=== PATIENT | female | born 1955 | race Caucasian/White ===

== ENCOUNTER 2024-03-24 17:09 | Emergency (ER) | payer MEDICARE, SELFPAY ==
--- NOTE | ~2024-03-24 | XR_ITS ---
XR shoulder LT min 2V DATE: 03/24/2024 17:55 INDICATION: Fall onto left shoulder. Pain, bruising TECHNIQUE: 2 views COMPARISON: None FINDINGS: There is a comminuted fracture the proximal left humerus including fracture of the humeral head, greater tuberosity and surgical neck, with prominent anteromedial displacement at the surgical neck fracture. No other fracture. Osteoarthritis of the left glenohumeral joint. Mild degenerative change of the acromion clavicular nahomy int. IMPRESSION: Comminuted proximal left humeral fracture, glenohumeral head, greater tuberosity, with pr ominently anteromedial displaced surgical neck fracture Reviewed, dictated and finalized at location A. SELLING PSYCHOLOGIST IMPRESSION: Comminuted proximal left humeral fracture, glenohumeral head, great er tuberosity, with prominently anteromedial displaced surgical neck fracture
[2024-03-24 17:22] VITALS: BP 131/72; PULSE 85; RESP 18; TEMP 36.6; O2SAT 96
--- NOTE | 2024-03-24 17:33 | ED.UPPEXIN ---
HPI - Extremity Injury (Upper) General Chief Complaint: Extremity Injury, Upper Stated Complaint: L shoulder pain Time Seen by Provider: 03/24/24 17:25 Source: patient Mode of arrival: ambulatory Limitations: no limitations History of Present Illness HPI narrative: This is a 68-year-old female that presents to the emergency department after a fall 2 nights ago with left shoulder pain. Reports she was up on a small stool that is about a foot off the ground. She had accidentally lost her balance and fell onto the left shoulder. She did not hit her head or lose consciousness. Reports decreased range of motion in the shoulder. Reports pain and bruising to the area. She is not on anticoagulation. Denies numbness. Related Data Allergies Allergy/AdvReac Type Severity Reaction Status Date / Time No Known Allergies Allergy Verified 03/24/24 17:39 Review of Systems Review of Systems: CONSTITUTIONAL: Denies fever CARDIOVASCULAR: Denies chest pain GASTROINTESTINAL: Denies vomiting MUSCULOSKELETAL: Reports joint pain, and myalgia. NEUROLOGIC: Denies numbness, or weakness. All systems reviewed & are unremarkable except as noted in HPI and below PMFSH Past Medical History Medical History (Updated 03/24/24 @ 18:03 by Jolene Francis PA-C) History of depression History of hypertension Social History Social History (Updated 03/24/24 @ 17:36 by Jolene Francis PA-C) Substance use: never Exam Narrative: GENERAL: Well-appearing, well-nourished, and in no acute distress. HEAD: Normocephalic, atraumatic. EYES: PERRLA and EOMI. ENT: Nares clear, no rhinorrhea or epistaxis. Mucous membranes moist. Oropharynx without tonsillar hypertrophy exudate or other lesions. Bilateral TMs pearly vo non-bulging NECK: Supple. No adenopathy or masses. CHEST: Clear to auscultation. No respiratory distress. No wheezes rales or rhonchi HEART: Regular rate and rhythm. No murmur heard. Normal peripheral pulses. EXTREMITIES: Normal range of motion, except decreased active ROM in the left should with edema and bruising present. Normal radial pulse. Normal sensation SKIN: Warm, dry, no rash. NEURO: No focal deficits. Alert and oriented x3. CN II-XII grossly intact. Normal gait PSYCH: Normal mood and affect Course Course Emergency Course: patient updated on workup and agrees with plan of care Vital Signs Vital signs: Vital Signs Temperature 97.9 F 03/24/24 17:22 Pulse Rate 85 03/24/24 17:22 Respiratory Rate 18 03/24/24 17:22 Blood Pressure 131/72 03/24/24 17:22 Pulse Oximetry 96 03/24/24 17:22 Oxygen Delivery Room Air 03/24/24 17:22 Temperature 97.9 F 03/24/24 17:22 Pulse Rate 85 03/24/24 17:22 Respiratory Rate 18 03/24/24 17:22 Blood Pressure 131/72 03/24/24 17:22 Pulse Oximetry 96 03/24/24 17:22 Oxygen Delivery Room Air 03/24/24 17:22 Procedures Orthopedic Splinting/Casting Injury #1: Splinting/Casting Date: 03/24/24 Splinting/Casting Time: 18:01 Side: left Upper Extremity Injury Location: shoulder Splint: prefabricated Pre-Formed: sling Pre-Procedure Neuro Vascular Exam: normal Post-Procedure Neuro Vascular Exam: normal MDM - Extremity Injury (Upper) MDM Narrative Medical decision making narrative: Patient presents to the emergency department after a fall 2 days ago with left shoulder pain. She did not hit her head or lose consciousness. She is neurovascularly intact. Left shoulder x-ray shows a proximal humerus fracture. Patient placed in a sling, will be given follow-up with Orthopedics. She was given warnings to return to the ER Differential Diagnosis Differential diagnosis: Likely fracture of humerus Imaging Data Radiologist's impression: ITS Impressions Shoulder X-Ray 03/24/24 17:59 IMPRESSION: Comminuted proximal left humeral fracture, glenohumeral head, greater tuberosity, with prominently anteromedial displaced surgical neck fracture Critical Care Time Critical Care Time Critical Care Time: No Discharge Plan Discharge Clinical Impression: Fracture of proximal end of humerus Qualifiers: Encounter type: initial encounter Fracture type: closed Fracture morphology: unspecified fracture morphology Laterality: left Qualified Code(s): S42.202A - Unspecified fracture of upper end of left humerus, initial encounter for closed fracture Patient Disposition: Home, Self-Care Condition: Stable Instructions: Arm Fracture in Adults (ED) Additional Instructions: Return to the ER if you experience fever, redness and swelling of your extremity, numbness or any other symptoms that are concerning to you Wear sling. No weight on the affected extremity. Ice to the area. [id number] pain medication as needed. Prescribed pain medication as needed (this medication can make you sleepy, try not to take this at the same time as your other sedating medications- Ambien, Clonazepam) Follow up with orthopedics for further care. Call to make an appointment on Tuesday Patient Language: Macedonian Prescriptions: New hydrocodone-acetaminophen 5-325 mg tablet 1 tablet PO Q6H PRN (Reason: pain) Qty: 20 0RF Follow-up/Referrals: PHYSICIAN NOT ON STAFF,NONSTAFF [Non-Staff] - Dimitri Mason MD [Physician] -
[2024-03-24] MEDS: Please add drug allergy info to patient profile. 1 EACH XX (17:40)
[2024-03-24] MEDS: HYDROcodone/acetaminophen (*CRX) 5-325 MG TABLET 1 TAB PO (17:43)
[2024-03-24 18:37] VITALS: BP 112/81; PULSE 88; RESP 16; TEMP 36.8; O2SAT 100
--- OUTSIDE RECORDS SUMMARY | 2024-03-31 23:28 | XMS_ITS | Clinical Summary ---
Author Organization [facility] Address [address] [place] [address]. [place], [place] [address] [place] [address] Care Team Providers Care Lan/Wan Engineer Name Role Phone Narendra Claros MD Primary Care Provider [phone]- [phone] Social History Tobacco Use Types Packs/Day Years Used Date Smoking Tobacco: Never Assessed Comments Unknown Sex and Gender Information Value Date Recorded Sex Assigned at Not on file Legal Sex Female 11:08 AM CDT Gender Identity Not on file Sexual Orientation Not on file Plan of Treatment Health Maintenance Due Date Last Done Comments Colorectal Cancer Screening Colonoscopy (10 Years) 1955 Hepatitis C 12/14/1973 Zoster Vaccines (1 of 2) 12/14/2005 DTaP, Tdap and Td Vaccines ( 1 - Tdap) 04/05/2007 04/04/2007 Annual Medicare Wellness Visit 12/14/2020 Pneumococcal Vaccine: 65+ Years (1 of 1 - PCV) 12/14/2020 COVID-19 Vaccine (4 - 2023-2 5 season) 2023 02/11/2021, 08/11/2020, 07/17/2020 Influenza Adult (#1) 2024 Mammogram Screening 11/06/2025 11/07/2023, 08/20/2021 RSV Immunization or 60+ Years (1 - 1-dose 75+ series) 12/14/2030 Dexa Scan (General) Completed 01/11/2022 Meningococcal Vaccine Aged Out No jeremias jessee eligible based on patient's age to complete this topic RSV Immunizations Under 20 Months Aged Out No longer eligible b ased on patient's age to complete this topic Procedures Procedure Name Priority Date/Time Associated Diagnosis Comments MG SCREENING W MYESHA NEO DIGI Routine 11/07/2023 2:19 PM CDT Encounter for screening mammogram for malignant neoplasm of breast BONE DENSITY/DEXA W VERT FRACTURE ASSES Routine 01/11/2022 1:01 PM CDT Age-related osteoporosis without current pathological fracture from Last 3 Months or Most Recently Relevant to Health Maintenance Results * MG SCREENING W MYESHA NEO DIGI (11/07/2023 2:19 PM CDT) Anatomical Region Laterality Modality Breast Bilateral Mammography 11/07/2023 2:23 PM CDT Impressions 11/07/2023 2:24 PM CDT ===== IMPRESSION: ===== 1. ??No findings in either breast to suggest malignancy Assessment: ACR BI-RADS 2 - BENIGN FINDING(S) Recommendation: 1:Routine Screening Bilateral Comments: Ordered By: NARENDRA CLAROS Interpreted By: Carlos Melchor MD, 11/07/2023 2:23 PM Narrative 11/07/2023 2:24 PM CDT Examination: Digital bilateral screening mammogram with 3D Tomosynthesis Exam Date/Time: 11/07/2023 2:00 PM Reason For Exam: ??screeing ? No prior breast procedures. No personal or family history of breast cancer. No current complaints. Comparison: Mammogram from 08/20/2021 Technique: Digital screening mammography of both breasts was performed in addition to 3-D Tomosynthesis technique. This study was read with the assistance of a computer-aided detection system. Tissue density: The breast tissue is heterogeneously dense, which may obscure small masses. Findings: Benign axillary lymph nodes. Benign punctate and vascular calcifications again seen. No suspicious interval change in parenchymal pattern from prior studies to suggest malignancy. There is no new focal asymmetry, dominant mass lesion, area of skin thickening, or cluster of suspicious appearing calcifications in either breast to suggest malignancy. us Narendra Claros MD MAMMO Final Resu lt * BONE DENSITY/DEXA W VERT FRACTURE ASSES (01/11/2022 1:01 PM CDT) Anatomical Region Laterality Modality Bone Mammography 01/11/2022 1:50 PM CDT Impressions 01/11/2022 1:51 PM CDT IMPRESSION: WHO Classification: Osteopenia RECOMMENDATIONS: All patients should ensure an adequate intake of dietary calcium and vitamin D. The NOF recommend adults under the age of 50 need 1000 mg of calcium and 400-800 IU of vitamin D daily. Effective therapy for the prevention and treatment of osteoporosis include bisphosphonates. Follow-up: People with diagnosed cases of osteoporosis or at high risk for fracture should have regular bone mineral density test. For patients eligible for Medicare, routine testing is allowed once every 2 years. Testing frequency can be increased to one year for patients who have rapidly progressing disease, those who are receiving or discontinuing medical therapy to restore bone mass, or have additional risk factors. Referred By: NARENDRA CLAROS Interpreted By: Gallo Palencia MD, 01/11/2022 1:50 PM Narrative 01/11/2022 1:51 PM CDT EXAMINATION: BONE DENSITY/DEXA W VERT FRACTURE ASSES INDICATIONS: Age-related osteoporosis without current pathological fracture COMPARISON: None TECHNIQUE: DEXA bone minimal density evaluation was performed in the AP projection over the lumbar spine and over both hips in the AP projection utilizing standard imaging techniques. ASSESSMENT: The BMD measured at the AP spine L1-L4 is 1.010 g/cm? with a T-score of -0.3. These measurements are artifactually elevated secondary to multilevel endplate sclerosis and spondylosis The BMD measured at the left femoral neck is 0.655 g/cm? with a T-score of -1.8. The BMD measured at the left hip is 0.816 g/cm? with a T-score of -1.0. ?? The BMD measured at the right femoral neck is 0.624 g/cm? with a T-score of - 2.0. ?? The BMD measured at the right hip is 0.821 g/cm? with a T-score of -1.0. ?? FRAX 10-year fracture risk: Major Osteoporotic Fracture: 11% Hip Fracture: 2.9% Procedure Note Gallo Palencia MD - 01/11/2022 EXAMINATION: BONE DENSITY/DEXA W ELISSA FRACTURE ASSBONNY INDICATIONS: Age-related osteoporosis without current pathologicalfracture COMPARISON: None TECHNIQUE: DEXA bone minimal density evaluation was performed in the APprojection over the lumbar spine and over both hips in the AP projectionutilizing standard imaging techniques. ASSESSMENT: The BMD measured at the AP spine L1-L4 is 1.010 g/cm? with a T-score of-0.3. These measurements are artifactually elevated secondary to multilevelendplate sclerosis and spondylosis The BMD measured at the left femoral neck is 0.655 g/cm? with a T-score of-1.8. The BMD measured at the left hip is 0.816 g/cm? with a T-score of -1.0. The BMD measured at the right femoral neck is 0.624 g/cm? with a T-scoreof -2.0. The BMD measured at the right hip is 0.821 g/cm? with a T-score of -1.0. FRAX 10-year fracture risk: Major Osteoporotic Fracture: 11% Hip Fracture: 2.9% IMPRESSION: WHO Classification: Osteopenia RECOMMENDATIONS: All patients should ensure an adequate intake of dietary calcium andvitamin D. The NOF recommend adults under the age of 50 need 1000 mg ofcalcium and 400-800 IU of vitamin D daily. Effective therapy for theprevention and treatment of osteoporosis include bisphosphonates. Follow-up: People with diagnosed cases of osteoporosis or at high risk for fractureshould have regular bone mineral density test. For patients eligible forMedicare, routine testing is allowed once every 2 years. Testing frequencycan be increased to one year for patients who have rapidly progressingdisease, those who are receiving or discontinuing medical therapy torestore bone mass, or have additional risk factors. Referred By: NARENDRA CLAROS Interpreted By: Gallo Palencia MD, 01/11/2022 1:50 PM Narendra Claros MD DEXA Final Resu lt from Last 3 Months or Most Recently Relevant to Health Maintenance Insurance MEDICARE [employer] Care Teams Lan/Wan Engineer Relationship Specialty Start Date End Date Narendra Claros MD [address] [facility] [address] [place] [address] PCP - General FAMILY PRACTICE 07/29/21
--- OUTSIDE RECORDS SUMMARY | 2024-03-31 23:28 | XMS_ITS | Encounter Summary ---
Author Organization [facility] Address [address] [place] [address]. [place], [place] [address] [place] [address] Care Team Providers Care Wet Mix Operator Name Role Phone Irlanda Claros MD Primary Care Provider +1- [phone] Encounter Details Date Type Department Care Team (Latest Contact Info) Description 08/20/2021 Travel Social History Tobacco Use Types Packs/Day Years Used Date Smoking Tobacco: Never Assessed Comments Unknown Sex and Gender Information Value Date Recorded Sex Assigned at Not on file Legal Sex Female 11:08 AM CDT Gender Identity Not on file Sexual Orientation Not on file COVID-19 Exposure Response Date Recorded In the last 10 days, have yo u been in contact with someone who was confirmed or suspected to have Coronavirus/COVID-19? No / Unsure 08/20/2021 11:03 AM CDT documented as of this encounter Plan of Treatment Not on file documented as of this encounter Visit Diagnoses Not on filedocumented in this encounter Care Teams Wet Mix Operator Relationship Specialty Start Date End Date Irlanda Claros MD [address] [facility] [address] [place] [address] PCP - General FAMILY PRACTICE 07/29/21 documented as of this encounter
--- OUTSIDE RECORDS SUMMARY | 2024-03-31 23:28 | XMS_ITS | Encounter Summary ---
Author Organization [facility] Address [address] [place] [address] Care Team Providers Care Artificial Insemination Technician Name Role Phone David Mays MD Primary Care Prov ider Reason for Visit * Reason Comments Medication Refill Encounter Details Date Type Department Care Team (Late st Contact Info) Description 12/10/[address] [address] David Mays MD [address] [place] [phone] GUSTAVO (generalized anxiety disorder); Insomnia, unspecified type Social History Tobacco Use Types Packs/Day Years Used Date Smoking Tobacco: Every Day Cigarettes Comments:3-4 cigarettes robyn y Alcohol Use Standard Drinks/Week Comments No 0 (1 standard drink = 0.6 oz pur e alcohol) Sex and Gender Information Value Date Recorded Sex Assigned at Not on file Gender Identity Not on file Sexual Orientation Not on file documented as of this encounter Miscellaneous Notes * Telephone Encounter - Charu John - 12/10/2020 2:37 PM CDT Both last filled 11/11/20 Last ov 05/27/20 Next ov 02/03/21 documented in this encounter Plan of Treatment Not on file documented as of this encounter Visit Diagnoses Diagnosis GUSTAVO (generalized anxiety disorder) Generalized anxiety disorder Insomnia, unspecified type documented in this encounter Care Teams Artificial Insemination Technician Relationship Specialty Start Date End Date David Mays MD PCP - General Family Practice 01/27/16 documented as of this encounter
--- OUTSIDE RECORDS SUMMARY | 2024-03-31 23:28 | XMS_ITS | Encounter Summary ---
Author Organization [facility] Address [address] [place] [address]. [place] [address] [place] [address] Care Team Providers Care Media Analytics Manager Name Role Phone Irlanda Claros MD Primary Care Provider +1- [phone] Encounter Details Date Type Department Care Team (Latest Contact Info) Description 11/07/2023 Travel Social History Tobacco Use Types Packs/Day Years Used Date Smoking Tobacco: Never Assessed Comments Unknown Sex and Gender Information Value Date Recorded Sex Assigned at Not on file Legal Sex Female 11:08 AM CDT Gender Identity Not on file Sexual Orientation Not on file documented as of this encounter Plan of Treatment Not on file documented as of this encounter Visit Diagnoses Not on filedocumented in this encounter Care Teams Media Analytics Manager Relationship Specialty Start Date End Date Irlanda Claros MD [address] [facility] [address] [place] [address] PCP - General FAMILY PRACTICE 07/29/21 documented as of this encounter
--- OUTSIDE RECORDS SUMMARY | 2024-03-31 23:28 | XMS_ITS | Encounter Summary ---
Author Organization [facility] Address [address] [place] [address] Care Team Providers Care Doweler Name Role Phone David Mays MD Primary Care Prov ider Reason for Visit * Reason Comments Medication Refill Encounter Details Date Type Department Care Team (Late st Contact Info) Description 01/13/2021 Refill [facility] - [address] [address] David Mays MD [address] [place] [phone] Hypercholesterolemia Social History Tobacco Use Types Packs/Day Years [...] encounter Miscellaneous Notes * Telephone Encounter - Renetta Lilly RMA - 01/13/2021 1:23 PM CDT Received refill request on lipitor TUAN: 05/27/20 F/U: 02/03/21 Last refill: 01/13/20 one year Opioid agreement: na Non-opioid agreement: na documented in this encounter Plan of Treatment Not on file documented as of this encounter Visit Diagnoses Diagnosis Hypercholesterolemia Pure hypercholesterolemia documented in this encounter Care Teams Doweler Relationship Specialty Start Date End Date David Mays MD PCP - General Family Practice 01/27/16 documented as of this encounter
--- OUTSIDE RECORDS SUMMARY | 2024-03-31 23:28 | XMS_ITS | Encounter Summary ---
Author Organization Possible Web Address [address] [facility] Attn: Epic Prelude ADT PAT RUIZ [address] Care Team Providers Care Antique Jewelry Repairer Name Role Phone David Mays MD Primary Care Prov ider Encounter Details Date Type Department Care Team (Late st Contact Info) Description 01/21/2021 Orders Only Initial Department [address] [facility] ATTN: [place] [address] Provider, Historical Malaise and fatigue Social History Tobacco Use Types Packs/Day Years [...] on file documented as of this encounter Procedures Procedure Name Priority Date/Time Associated Diagnosis Comments TSH REFLEXIVE Routine 01/21/2021 9:12 AM CDT Malaise and fatigue CBC WITHOUT DIFFERENTIAL Routine 01/21/2021 9:12 AM CDT LIPID PANEL Routine 01/21/2021 9:12 AM CDT COMPREHENSIVE METABOLIC PANEL Routine 01/21/2021 9:12 AM CDT documented in this encounter Results * (ABNORMAL) CBC WITHOUT DIFFERENTIAL (01/21/2021 9:12 AM CDT) Pathologist [facility] WBC 7.5 3.8 - 10.8 Thousand/u L [facility] RBC 3.73(L) 3.80 - 5.10 Million/uL [facility] HEMOGLOBIN 12.7 11.7 - 15.5 g/dL [facility] HEMATOCRIT 38.9 35.0 - 45.0 % [facility] MCV 104.3(H) 80.0 - 100.[address] [facility] MCH 34.0(H) 27.0 - 33.[address] [facility] MCHC 32.6 32.0 - 36.0 g/dL [facility] RDW 12.7 11.0 - 15.0 % [facility] PLATELETS 248 140 - 400 Thousand/u L [facility] MPV 11.1 7.5 - 12.[address] [facility] Comment: FASTING:YES FASTING: YES Test Performed at: [address] ??[phone] Miguel Angel Zavala D.O., MPH 01/21/2021 9:12 AM CDT 01/21/2021 9:13 AM CDT David Mays MD HEMATOLOGY ORDERABLES Performing Organization Address [facility] de Phone Number [facility] [address] [place] [address] * TSH REFLEXIVE (01/21/2021 9:12 AM CDT) Pathologist [facility] TSH, ULTRASENSITIVE 2.11 0.40 - 4.50 mIU/L [facility] Comment: Test Performed at: [facility] ??[phone] Miguel Angel Zavala D.O., MPH Blood 01/21/2021 9:12 AM CDT 01/21/2021 9:13 AM CDT David Mays MD CHEMISTRY ORDERABLES Performing Organization Address [facility] Co de Phone Number [facility] [address] [place] [address] * (ABNORMAL) COMPREHENSIVE METABOLIC PANEL (01/21/2021 9:12 AM CDT) GLUCOSE 94 65 - 99 mg/dL [facility] Comment: ? Fasting reference interval BUN 11 7 - 25 mg/dL [facility] CREATININE 0.79 0.50 - 0.99 mg/dL [facility] Comment: For patients >49 years of age, the reference limit for Creatinine is approximately 13% higher for people identified as -Russian. GFR 79 > OR = 60 mL/min/1 .73m2 [facility] GFR, 91 > OR = 60 mL/min/1 .73m2 [facility] BUN/CREAT RATIO NOT APPLICABLE 6 - 22 (calc) [facility] SODIUM 142 135 - 146 mmol/L [facility] POTASSIUM 3.9 3.5 - 5.3 mmol/L [facility] CHLORIDE 103 98 - 110 mmol/L [facility] CO2 32 20 - 32 mmol/L [facility] CALCIUM 9.9 8.6 - 10.4 mg/dL [facility] TOTAL PROTEIN 6.5 6.1 - 8.1 g/dL [facility] ALBUMIN 4.2 3.6 - 5.1 g/dL [facility] GLOBULIN 2.3 1.9 - 3.7 g/dL (calc) [facility] ALBUMIN/GLOBULIN RATIO 1.8 1.0 - 2.5 (calc) [facility] BILIRUBIN TOTAL 0.4 0.2 - 1.2 mg/dL [facility] ALKALINE PHOSPHATASE 101 37 - 153 U/L [facility] AST 39(H) 10 - 35 U/L [facility] ALT 35(H) 6 - 29 U/L [facility] Comment: Test Performed at: [employer] ??[phone] Miguel Angel Zavala D.O., MPH 01/21/2021 9:12 AM CDT 01/21/2021 9:13 AM CDT David Mays MD CHEMISTRY ORDERABLES [facility] [address] [place] [address] * LIPID PANEL (01/21/2021 9:12 AM CDT) CHOLESTEROL 174 <200 mg/dL [facility] HDL 64 > OR = 50 mg/dL [facility] TRIGLYCERIDE 149 <150 mg/dL [facility] LDL CALCULATED 85 mg/dL (calc) [facility] Comment: Reference range: <100 Desirable range <100 mg/dL for primary prevention; ?? <70 mg/dL for patients with CHD or diabetic patients with > or = 2 CHD risk factors. LDL-C is now calculated using the Sherry calculation, which is a validated novel method providing better accuracy than the Friedewald equation in the estimation of LDL-C. Shemar SS et al. ZAY. 2013;310(19): 4472-3364 (http://education.42Networks/faq/FOB899) CHOL/HDL RATIO 2.7 <5.0 (calc) [facility] TOTAL NON-HDL CHOL(LDL+VLDL) 110 <130 mg/dL (calc) [facility] Comment: For patients with diabetes plus 1 major ASCVD risk factor, treating to a non-HDL-C goal of <100 mg/dL (LDL-C of <70 mg/dL) is considered a therapeutic option. Test Performed at: [employer] ??[phone] Miguel Angel Zavala D.O., MPH 01/21/2021 9:12 AM CDT 01/21/2021 9:13 AM CDT David Mays MD CHEMISTRY ORDERABLES [facility] [address] [place] [address] documented in this encounter Visit Diagnoses Diagnosis Malaise and fatigue Other malaise and fatigue documented in this encounter Care Teams Antique Jewelry Repairer Relationship Specialty Start Date End Date David Mays MD PCP - General Family Practice 01/27/16 documented as of this encounter
--- OUTSIDE RECORDS SUMMARY | 2024-03-31 23:28 | XMS_ITS | Encounter Summary ---
Author Organization [facility] Address [address] [place] [address]. [place] [address] [place] [address] Care Team Providers Care Incinerator Plant General Supervisor Name Role Phone Narendra Claros MD Primary Care Provider [phone]- [phone] Reason for Referral * Imaging (Routine) - New Request Specialty Diagnoses / Procedures Referred By Junaid bell Referred To Contact RADIOLOGY Diagnoses Encounter for screening mammogram for malignant neoplasm of breast Procedures MG SCREENING W Narendra Reno MD [address] [facility] [address] [place] [address] Phone: tel: fax: Referral ID Status Reason Start Date Expiration Date V isits Requested Visits Authorized [id number] New Request 10/12/2023 12/12/2024 1 1 Reason for Visit * Imaging (Routine) - New Request Specialty Diagnoses / Procedures Referred By Junaid bell Referred To Contact RADIOLOGY Diagnoses Encounter for screening mammogram for malignant neoplasm of breast Procedures MG SCREENING W Narendra Reno MD [address] [facility] [facility] [address] [place] [address] Phone: tel: fax: Referral ID Status Reason Start Date Expiration Date V isits Requested Visits Authorized [id number] New Request 10/12/2023 12/12/2024 1 1 Encounter Details Date Type Department Care Team (Late st Contact Info) Description 11/07/2023 1:51 PM CDT - 11/07/2023 11:59 PM CDT Hospital Encounter [facility] Mammography [address] [place] [address] Narendra Claros MD [address] [facility] [address] [place] [address] Discharge Disposition: Home or Self Care (Routine Discharge) Social History Tobacco Use Types Packs/Day Years [...] screening mammogram for malignant neoplasm of breast documented in this encounter Results * MG SCREENING W MYESHA NEO [...] Narendra Claros MD MAMMO Final Resu lt documented in this encounter Visit Diagnoses Diagnosis Encounter for screening mammogram for malignant neoplasm of breast Other screening mammogram documented in this encounter Care Teams Incinerator Plant General Supervisor Relationship Specialty Start Date End Date Narendra Claros MD [address] [facility] [facility] [address] [place] [address] PCP - General FAMILY PRACTICE 07/29/21 documented as of this encounter
--- OUTSIDE RECORDS SUMMARY | 2024-03-31 23:28 | XMS_ITS | Encounter Summary ---
Author Organization [facility] Address [address] [place] [address] Care Team Providers Care School Photograph Editor Name Role Phone David Mays MD Primary Care Prov ider Reason for Visit * Reason Onset Date Comments Information 11/21/2020 Encounter Details Date Type Department Care Team (Late st Contact Info) Description 11/21/2020 Telephone [facility] MEDICINE - [address] [address] David Mays MD [address] [place] [address] Information Social History Tobacco Use Types Packs/Day Years [...] encounter Miscellaneous Notes * Telephone Encounter - Bharati Mullen - 11/21/2020 12:55 PM CDT Name of PCP Provider or Prescribing Provider: David Mays MD Next office visit: 02/03/2021 Caller: Krys Message: Patient was returning a call she received a voicemail from Iva to call back office and patientsaid she's already scheduled an appointment to see PCP. Call back Number: [phone] documented in this encounter Plan of Treatment Not on file documented as of this encounter Visit Diagnoses Not on filedocumented in this encounter Care Teams School Photograph Editor Relationship Specialty Start Date End Date David Mays MD PCP - General Family Practice 01/27/16 documented as of this encounter
--- OUTSIDE RECORDS SUMMARY | 2024-03-31 23:28 | XMS_ITS | Encounter Summary ---
Author Organization [facility] Address [address] [place] [address]. [place], [place] [id number] [place] [address] Care Team Providers Care Yarn Carrier Name Role Phone Irlanda Claros MD Primary Care Provider +1- [phone] Encounter Details Date Type Department Care Team (Latest Contact Info) Description 01/11/2022 Travel Social History Tobacco Use Types Packs/Day [...] suspected to have Coronavirus/COVID-19? No / Unsure 01/11/2022 12:26 PM CDT documented as of this encounter Plan of Treatment Not on file documented as of this encounter Visit Diagnoses Not on filedocumented in this encounter Care Teams Yarn Carrier Relationship Specialty Start Date End Date Irlanda Claros MD [address] [facility] [address] [place] [address] PCP - General FAMILY PRACTICE 07/29/21 documented as of this encounter
--- OUTSIDE RECORDS SUMMARY | 2024-03-31 23:28 | XMS_ITS | Encounter Summary ---
Author Organization [facility] Address [address] [place] [address] Care Team Providers Care Beam Saw Operator Name Role Phone David Mays MD Primary Care Prov ider Reason for Visit * Reason Onset Date Comments Results 04/07/2021 Encounter Details Date Type Department Care Team (Late st Contact Info) Description 04/07/2021 Telephone [facility] MEDICINE - [address] [address] David Mays MD [address] [place] [phone] Results Social History Tobacco Use Types Packs/Day Years [...] encounter Miscellaneous Notes * Telephone Encounter - Yessi Eli PCT - 04/07/2021 1:44 PM SPREADER BOX OPERATOR Letter mailed. ADER BOX OPERATOR documented in this encounter Plan of Treatment Not on file documented as of this encounter Visit Diagnoses Not on filedocumented in this encounter Care Teams Beam Saw Operator Relationship Specialty Start Date End Date David Mays MD PCP - General Family Practice 01/27/16 documented as of this encounter
--- OUTSIDE RECORDS SUMMARY | 2024-03-31 23:28 | XMS_ITS | Encounter Summary ---
Author Organization [facility] Address [address] [place] [address] Care Team Providers Care Suspect Artist Name Role Phone David Mays MD Primary Care Prov ider Reason for Visit * Reason Comments Medication Refill Encounter Details Date Type Department Care Team (Late st Contact Info) Description 01/09/2021 Refill [facility] MEDICINE - [address] [address] David Mays MD [address] [place] [phone] Insomnia, unspecified type; GUSTAVO (generalized anxiety disorder) Social History Tobacco Use Types Packs/Day Years [...] Telephone Encounter - Renetta Lilly RMA - 01/09/2021 4:22 PM CDT Received refill request on klonopin and ambien TUAN: 05/27/20 F/U: 02/03/21 Last refill: 12/11/20 Opioid agreement: na Non-opioid agreement: na documented in this encounter Plan of Treatment Not on file documented as of this encounter Visit Diagnoses Diagnosis Insomnia, unspecified type GUSTAVO (generalized anxiety disorder) Generalized anxiety disorder documented in this encounter Care Teams Suspect Artist Relationship Specialty Start Date End Date David Mays MD PCP - General Family Practice 01/27/16 documented as of this encounter
--- OUTSIDE RECORDS SUMMARY | 2024-03-31 23:28 | XMS_ITS | Clinical Summary ---
Author Organization [employer] [facility] Address [address] [place] [address] Care Team Providers Care Cmm Inspector Name Role Phone David Mays MD Primary Care Prov ider Allergies No known active allergies Medications Medication Sig Dispensed Refills Start Date End Date Status aspirin (ECOTRIN EC) 81 mg Tablet, Delayed Release (E.C.)Indications:Hype rcholesterolemia Take 1 Tablet (81 mg) by mouth daily. 30 Tablet 2 08/09/2018 Active lisinopriL (PRINIVIL) 40 mg tabletIndications:Esse ntial hypertension TAKE 1 TABLET (40 MG) BY MOUTH DAILY. 90 Tablet 3 09/12/2020 Active atorvastatin (LIPITOR) 40 mg tabletIndications:Hype rcholesterolemia TAKE ONE TABLET BY MOUTH ONCE DAILY LATE IN THE DAY. 90 Tablet 3 01/13/2021 Active citalopram (CeleXA) 20 mg tabletIndications:GUSTAVO (generalized anxiety disorder) TAKE 1 TABLET BY MOUTH ONCE DAILY. 90 Tablet 01/14/2021 Active clonazePAM (KlonoPIN) 1 mg tabletIndications:GUSTAVO (generalized anxiety disorder) TAKE ONE-HALF TABLET BY MOUTH NIGHTLY NEEDED FOR ANXIETY. 15 Tablet 03/05/2021 Active zolpidem (AMBIEN) 5 mg tabletIndications:Inso mnia, unspecified type Take 1 Tablet (5 mg) by mouth nightly as needed for Insomnia. 30 Tablet 03/05/2021 Active Active Problems Problem Noted Date Diagnosed Date Depression 01/27/2016 Hypercholesterolemia 01/27/2016 Hypertension 01/27/2016 Adiposity 01/27/2016 Tobacco use 07/16/2015 Immunizations Name Administration Dates Next Due (TDVAX)(7 YRS UP) TETANUS AN D DIPHTHERIA TOXOIDS, ADSORBED (2 LF OF TETANUS TOXOID AND 2 LF OF DIPHTHERIA TOXOID), 0.5ML (PF), IM 04/04/2007 Family History Medical History Relation Name Comments Hypertension Brother 1 Hypertension Brother 2 Hypertension Brother 3 Hypertension Father Hypertension Mother Relation Name Status Comments Brother 1 Brother 2 Brother 3 Father Mother Social History Tobacco Use Types Packs/Day Years Used Date Smoking Tobacco: Every Day Cigarettes Tobacco Cessation:Ready to Q uit: No; Counseling Given: No Comments:3-4 cigarettes daily Alcohol Use Standard Drinks/Week Comments No 0 (1 standard drink = 0.6 oz pur e alcohol) Sex and Gender Information Value Date Recorded Sex Assigned at Not on file Gender Identity Not on file Sexual Orientation Not on file Last Filed Vital Signs Vital Sign Reading Time Taken Comments Blood Pressure 128/77 05/27/2020 9:12 AM CONSTRUCTION DRIVER Pulse 71 05/27/2020 9:12 AM CONSTRUCTION DRIVER Temperature 36.6 ??C (97.8 ??F) 05/27/2020 9:12 AM CS T Respiratory Rate 14 05/27/2020 9:12 AM CONSTRUCTION DRIVER Oxygen Saturation 95% 05/27/2020 9:12 AM CONSTRUCTION DRIVER Inhaled Oxygen Concentration - - Weight 55.3 kg (122 lb) 05/27/2020 9:12 AM CONSTRUCTION DRIVER Height 162.6 cm (5' 4 ) 05/27/2020 9:12 AM CONSTRUCTION DRIVER Body Mass Index 20.94 05/27/2020 9:12 AM CONSTRUCTION DRIVER Plan of Treatment Health Maintenance Due Date Last Done Comments PNEUMOCOCCAL VACCINE 65+ YEARS (1 of 2 - PCV) 12/14/18 62 BREAST CANCER SCREENING 1995 COLORECTAL SCREENING 12/14/2000 Colorectal Cancer Screening 12/14/2000 FIT-DNA Q 3 years 12/14/2000 FIT/FOBT Q 1 year 12/14/2000 Flex Sig/CT Colonography Q 5 years 12/14/2000 ZOSTER VACCINE (1 of 2) 12/14/2005 DTAP/TDAP/TD VACCINES (1 - Tdap) 04/05/2007 04/04/19 08 OSTEOPOROSIS SCREENING 12/14/2020 INFLUENZA VACCINE (#1) 2023 RSV VACCINE (60+ or ) (1 - 1-dose 75+ series) 12/14/2030 Care Teams Cmm Inspector Relationship Specialty Start Date End Date David Mays MD PCP - General Family Practice 01/27/16
--- OUTSIDE RECORDS SUMMARY | 2024-03-31 23:28 | XMS_ITS | Encounter Summary ---
Author Organization [facility] Address [address] [place] [address] Care Team Providers Care Grader Patrol Name Role Phone David Mays MD Primary Care Prov ider Reason for Visit * Reason Comments Medication Refill Encounter Details Date Type Department Care Team (Late st Contact Info) Description 03/05/[address] [address] David Mays MD [address] [place] [phone] GUSTAVO (generalized anxiety disorder); Insomnia, unspecified type [...] Exposure Response Date Recorded In the last month, have you been in contact with someone who was confirmed or suspected to have Coronavirus / COVID-19? No / Unsure 02/04/2021 10:51 AM CDT documented as of this encounter Plan of Treatment Not on file documented as of this encounter Visit Diagnoses Diagnosis GUSTAVO (generalized anxiety disorder) Generalized anxiety disorder Insomnia, unspecified type documented in this encounter Care Teams Grader Patrol Relationship Specialty Start Date End Date David Mays MD PCP - General Family Practice 01/27/16 documented as of this encounter
--- OUTSIDE RECORDS SUMMARY | 2024-03-31 23:28 | XMS_ITS | Encounter Summary ---
Author Organization [facility] Address [address] [place] [address]. [place] [address] [place] [address] Care Team Providers Care Stack Clerk Name Role Phone Narendra Claros MD Primary Care Provider +1- [phone] Reason for Visit * Imaging (Routine) - Closed Specialty Diagnoses / Procedures Referred By Junaid t Referred To Contact RADIOLOGY Diagnoses Encounter for screening mammogram for malignant neoplasm of breast Procedures MG SCREENING W MYESHA NEO DIGI Narendra Claros MD [address] [facility] [address] [place] [address] Phone: tel: fax: Referral ID Status Reason Start Date Expiration Date Visits Re quested Visits Authorized [id number] Closed 07/29/2021 08/28/2022 1 1 Encounter Details Date Type Department Care Team (Late st Contact Info) Description 08/20/2021 11:10 AM CDT - 08/20/2021 11:59 PM T Hospital Encounter [facility] Mammography [address] [place] [address] Narendra Claros MD [address] [facility] [address] [place], [place] [phone] Discharge Disposition: Home or Self Care (Routine Discharge) Social History Tobacco Use Types Packs/Day Years Used Date Smoking Tobacco: Never Assessed Comments Unknown Sex and Gender Information Value Date Recorded Sex Assigned at Not on file Legal Sex Female 11:08 AM CDT Gender Identity Not on file Sexual Orientation Not on file COVID-19 Exposure Response Date Recorded In the last 10 days, have den u been in contact with someone who was confirmed or suspected to have Coronavirus/COVID-19? No / Unsure 08/20/2021 11:03 AM CDT documented as of this encounter Plan of Treatment Not on file documented as of this encounter Procedures Procedure Name Priority Date/Time Associated Diagnosis Comments MG SCREENING W MYESHA NEO DIGI Routine 08/20/2021 11:37 AM CDT Encounter for screening mammogram for malignant neoplasm of breast documented in this encounter Results * MG SCREENING W MYESHA NEO DIGI (08/20/2021 11:37 AM CDT) Anatomical Region Laterality Modality Breast Bilateral Mammography 08/20/2021 2:48 PM CDT Impressions 08/20/2021 2:48 PM CDT =====IMPRESSION:===== No mammographic findings suggestive of malignancy ASSESSMENT: ACR BI-RADS 2 - BENIGN FINDING(S) Recommendation: 1: Routine Screening Bilateral COMMENTS: Ordered By: NARENDRA CLAROS Interpreted By: Farhat Hurtado MD, 08/20/2021 2:48 PM Narrative 08/20/2021 2:48 PM CDT EXAMINATION: Digital bilateral screening mammogram with 3-D tomosynthesis EXAM DATE/TIME: 08/20/2021 11:20 AM REASON FOR EXAM: ??SCREENING ? COMPARISON: Reestablishing baseline. TECHNIQUE: Digital screening mammography of both breasts was performed in addition to 3-D Tomosynthesis technique. This study was read with the assistance of a computer-aided detection system. TISSUE DENSITY: The breast tissue is heterogeneously dense, which may obscure small masses. FINDINGS: No suspicious masses, malignant appearing calcifications, skin thickening or other abnormalities are present. ?? us Narendar Claros MD MAMMO Final Resu lt documented in this encounter Visit Diagnoses Not on filedocumented in this encounter Care Teams Stack Clerk Relationship Specialty Start Date End Date Narendra Claros MD [address] [facility] [address] [place] [address] PCP - General FAMILY PRACTICE 07/29/21 documented as of this encounter
--- OUTSIDE RECORDS SUMMARY | 2024-03-31 23:28 | XMS_ITS | Encounter Summary ---
Author Organization [facility] Address [address] [place] [address] Care Team Providers Care Deputy Commonwealth'S Attorney Name Role Phone David Mays MD Primary Care Prov ider Reason for Visit * Reason Comments Medication Refill Encounter Details Date Type Department Care Team (Late st Contact Info) Description 01/13/2021 Refill [facility] MEDICINE - [address] [address] David Mays MD [address] [place] [phone] GUSTAVO (generalized anxiety disorder) Social History Tobacco Use Types Packs/Day Years Used Date Smoking Tobacco: Every Day Cigarettes Comments:3-4 cigarettes roybn y Alcohol Use Standard Drinks/Week Comments No 0 (1 standard drink = 0.6 oz pur e alcohol) Sex and Gender Information Value Date Recorded Sex Assigned at Not on file Gender Identity Not on file Sexual Orientation Not on file documented as of this encounter Miscellaneous Notes * Telephone Encounter - Renetta Lilly RMA - 01/14/2021 9:24 AM CDT Received refill request on celexa TUAN: 05/27/20 F/U: 02/03/21 Last refill: 01/13/20 one year Opioid agreement: na Non-opioid agreement: na documented in this encounter Plan of Treatment Not on file documented as of this encounter Visit Diagnoses Diagnosis GUSTAVO (generalized anxiety disorder) Generalized anxiety disorder documented in this encounter Care Teams Deputy Commonwealth'S Attorney Relationship Specialty Start Date End Date David Mays MD PCP - General Family Practice 01/27/16 documented as of this encounter
--- OUTSIDE RECORDS SUMMARY | 2024-03-31 23:28 | XMS_ITS | Encounter Summary ---
Author Organization [facility] Address [address] [place] [address] Care Team Providers Care Banquet Food Server Name Role Phone David Mays MD Primary Care Prov ider Reason for Visit * Reason Onset Date Comments Erroneous encounter-disregard 11/10/2020 Encounter Details Date Type Department Care Team (Late st Contact Info) Description 11/10/2020 Refill [facility] FAMILY MEDICINE - [address] [address] David Mays MD [address] [place] [address] Insomnia, unspecified type; GUSTAVO (generalized anxiety disorder) [...] encounter Miscellaneous Notes * Telephone Encounter - Iva Lopez - 11/21/2020 12:40 PM CDT LMOR for patient to call back * Telephone Encounter - David Mays MD - 11/11/2020 8:58 AM CDT Refilled. Please advise to have earlier appt for her 6 month f/u. * Telephone Encounter - Kala Causey - 11/10/2020 5:39 PM CDT TUAN: 05/27/2020 NOV: 02/03/2021 RFL: 10/07/2020 Pharmacy: [facility] documented in this encounter Plan of Treatment Not on file documented as of this encounter Visit Diagnoses Diagnosis Insomnia, unspecified type GUSTAVO (generalized anxiety disorder) Generalized anxiety disorder documented in this encounter Care Teams Banquet Food Server Relationship Specialty Start Date End Date David Mays MD PCP - General Family Practice 01/27/16 documented as of this encounter
--- OUTSIDE RECORDS SUMMARY | 2024-03-31 23:28 | XMS_ITS | Encounter Summary ---
Author Organization [facility] Address [address] [place] [address]. [place], [place] [address] [place] [address] Care Team Providers Care Air Intelligence Officer Name Role Phone Narendra Claros MD Primary Care Provider [phone]- [phone] Reason for Referral * Imaging (Routine) - Closed Specialty Diagnoses / Procedures Referred By Junaid bell Referred To Contact RADIOLOGY Diagnoses Personal history of nicotine dependence Procedures CT LUNG SCREENING Narendra Claros MD 3 [facility] [address] [place] [address] Phone: tel: fax: Referral ID Status Reason Start Date Expiration Date Visits Re quested Visits Authorized [id number] Closed 09/26/2023 09/26/2024 1 1 Reason for Visit * Imaging (Routine) - Closed Specialty Diagnoses / Procedures Referred By Junaid bell Referred To Contact RADIOLOGY Diagnoses Personal history of nicotine dependence Procedures CT LUNG SCREENING Narendra Claros MD 3 [facility] [id number] [place] [address] Phone: tel: fax: Referral ID Status Reason Start Date Expiration Date Visits Re quested Visits Authorized [id number] Closed 09/26/2023 09/26/2024 1 1 Encounter Details Date Type Department Care Team (Late st Contact Info) Description 11/07/2023 1:51 PM CDT - 11/07/2023 11:59 PM CDT [facility] [address] [place] [address] Narendra Claros MD 3 [facility] [address] [place] [address] Discharge Disposition: Home or Self Care (Routine [...] Procedure Name Priority Date/Time Associated Diagnosis Comments CT LUNG SCREENING Routine 11/07/2023 2:0 4 PM CDT Personal history of nicotine dependence documented in this encounter Results * CT LUNG SCREENING (11/07/2023 2:04 PM CDT) Anatomical Region Laterality Modality Chest Computed Tomogra phy 11/10/2023 1:42 PM CDT Impressions 11/10/2023 1:45 PM CDT IMPRESSION: 1. Lung RADS category 3 - probably benign findings - short-term follow-up suggested; includes nodules with a low likelihood of becoming a clinically active cancer. 2. LUNG-RADS category S: Negative, no new/unknown potentially significant incidental findings requiring urgent additional evaluation. 3. Other incidental findings as above. RECOMMENDATIONS: Follow-up LDCT Chest in 6 months (on or around 05/09/2024). Referred By: NARENDRA CLAROS Interpreted By: Stalin Cowan MD, 11/10/2023 1:42 PM Narrative 11/10/2023 1:45 PM CDT EXAM: LUNG SCREENING LOW-DOSE CT THORAX WITHOUT CONTRAST DATE: 11/07/2023 HISTORY: Asymptomatic patient meeting NCCN high-risk criteria for lung screening. COMPARISON: None TECHNIQUE: Noncontrast, helical, low-dose CT (LDCT) chest per standard departmental protocol. Automated exposure control was utilized for dose reduction. FINDINGS: Lung Screening Specific (LUNG-RADS): 4 mm nodule right middle lobe axial image 72. ??Baseline. ??Lung RADS 2. 7.5 mm nodule right middle lobe axial image 78. ??Baseline. ??Lung RADS 3. 2 mm right lower lobe nodule axial image 110. ??Baseline. ??Lung RADS 2. Potentially Significant Incidentals (LUNG-RADS category S): None. Pulmonary Incidentals: None. Other Incidentals: Atherosclerosis and coronary calcifications. ??Cholelithiasis. ??Scattered degenerative changes of the spine. Procedure Note Stalin Cowan MD - 11/10/2023 EXAM: LUNG SCREENING LOW-DOSE CT THORAX WITHOUT CONTRAST DATE: 11/07/2023 HISTORY: Asymptomatic patient meeting NCCN high-risk criteria for lungscreening. COMPARISON: None TECHNIQUE: Noncontrast, helical, low-dose CT (LDCT) chest per standarddepartmental protocol. Automated exposure control was utilized for dosereduction. FINDINGS: Lung Screening Specific (LUNG-RADS): 4 mm nodule right middle lobe axial image 72. Baseline. Lung RADS 2. 7.5 mm nodule right middle lobe axial image 78. Baseline. Lung RADS 3. 2 mm right lower lobe nodule axial image 110. Baseline. Lung RADS 2. Potentially Significant Incidentals (LUNG-RADS category S): None. Pulmonary Incidentals: None. Other Incidentals: Atherosclerosis and coronary calcifications.Cholelithiasis. Scattered degenerative changes of the spine. IMPRESSION: 1. Lung RADS category 3 - probably benign findings - short-term follow- upsuggested; includes nodules with a low likelihood of becoming a clinicallyactive cancer. 2. LUNG-RADS category S: Negative, no new/unknown potentially significantincidental findings requiring urgent additional evaluation. 3. Other incidental findings as above. RECOMMENDATIONS: Follow-up LDCT Chest in 6 months (on or around05/09/2024). Referred By: NARENDRA CLAROS Interpreted By: Stalin Cowan MD, 11/10/2023 1:42 PM us Narendra Claros MD CT Final Resu lt documented in this encounter Visit Diagnoses Diagnosis Personal history of nicotine dependence Personal history of tobacco use, presenting hazards to health documented in this encounter Care Teams Air Intelligence Officer Relationship Specialty Start Date End Date Narendra Claros MD [address] [facility] [address] [place] [address] PCP - General FAMILY PRACTICE 07/29/21 documented as of this encounter
--- OUTSIDE RECORDS SUMMARY | 2024-03-31 23:28 | XMS_ITS | Encounter Summary ---
Author Organization [facility] Address [address] [place] [address] Care Team Providers Care Engineering Surveyor Name Role Phone David Mays MD Primary Care Prov ider Reason for Visit * Reason Comments Medication Refill Encounter Details Date Type Department Care Team (Late st Contact Info) Description 02/05/[address] [address] Daivd Mays MD [address] [place] [phone] GUSTAVO (generalized anxiety disorder); Insomnia, unspecified type [...] AM CDT documented as of this encounter Miscellaneous Notes * Telephone Encounter - Renetta Lilly RMA - 02/05/2021 2:14 PM CDT Received refill request on ambien and klonopin TUAN: 05/27/20 F/U: 02/12/21 Last refill: 01/10/21 0 Opioid agreement: na Non-opioid agreement: due documented in this encounter Plan of Treatment Not on file documented as of this encounter Visit Diagnoses Diagnosis GUSTAVO (generalized anxiety disorder) Generalized anxiety disorder Insomnia, unspecified type documented in this encounter Care Teams Engineering Surveyor Relationship Specialty Start Date End Date David Mays MD PCP - General Family Practice 01/27/16 documented as of this encounter
--- OUTSIDE RECORDS SUMMARY | 2024-03-31 23:28 | XMS_ITS | Encounter Summary ---
Author Organization [facility] Address [address] [place] [address] Care Team Providers Care Clin Asst Name Role Phone David Mays MD Primary Care Prov ider Reason for Visit * Reason Onset Date Comments Medication Refill 03/05/2021 Encounter Details Date Type Department Care Team (Late st Contact Info) Description 03/05/2021 Refill [facility] [address] [address] David Mays MD [address] [place] [phone] GUSTAVO (generalized anxiety disorder); Insomnia, unspecified type [...] Telephone Encounter - Yessi Eli PCT - 03/05/2021 4:02 PM UTILIZATION REVIEW NURSE Patient notified. IZATION REVIEW NURSE * Telephone Encounter - Mays, Ma Rach M, MD - 03/05/2021 3:29 PM UTILIZATION REVIEW NURSE Please inform Krys that both her medications are controlled and can only be filled monthly that is probably why 3 month supply was denied. Both rxs refilled. IZATION REVIEW NURSE * Telephone Encounter - Kayy Sweet - 03/05/2021 2:58 PM CST Images from the original note were not included. Name of PCP Provider or Prescribing Provider: David Mays MD Next office visit: 03/05/2021 Caller: Krys Message: Krys had heard back from her pharmacy and the medication refill request had been denied because her PCP said it was inappropriate , Krys is not sure what that even means and would like to get some clarification Please advise Call back Number: [phone] IZATION REVIEW NURSE * Telephone Encounter - Omar Nick - 03/05/2021 9:04 AM UTILIZATION REVIEW NURSE Requesting at least 3 months to hold until she can establish care with a New PCP Pt calls for Rx refill Krys Cook at [phone] (home) called about Rx refill of Requested Prescriptions Pending Prescriptions Disp Refills ??? clonazePAM (KlonoPIN) 1 mg tablet 15 Tablet 0 ??? zolpidem (AMBIEN) 5 mg tablet 30 Tablet 0 Sig: Take 1 Tablet (5 mg) by mouth nightly as needed for Insomnia. Date of Last Visit: 05/27/2020 Next office visit: Visit date not found Patient's Preferred Pharmacy Info: IZATION REVIEW NURSE documented in this encounter Plan of Treatment Not on file documented as of this encounter Visit Diagnoses Diagnosis GUSTAVO (generalized anxiety disorder) Generalized anxiety disorder Insomnia, unspecified type documented in this encounter Care Teams Clin Asst Relationship Specialty Start Date End Date David Mays MD PCP - General Family Practice 01/27/16 documented as of this encounter
--- OUTSIDE RECORDS SUMMARY | 2024-03-31 23:28 | XMS_ITS | Encounter Summary ---
Author Organization [facility] Address [address] [place] [address]. [place] [address] [place] [address] Care Team Providers Care Stone Sawyer Name Role Phone Narendra Claros MD Primary Care Provider +1- [phone] Reason for Referral * Imaging (Routine) - Closed Specialty Diagnoses / Procedures Referred By Junaid bell Referred To Contact RADIOLOGY Diagnoses Age-related osteoporosis without current pathological fracture Procedures BONE DENSITY/DEXA W VERT FRACTURE Narendra Ivey MD [address] [place] [address] [id number] [place] [address] Phone: tel: fax: Referral ID Status Reason Start Date Expiration Date Visits Re quested Visits Authorized [id number] Closed 09/08/2021 10/09/2022 1 1 Reason for Visit * Imaging (Routine) - Closed Specialty Diagnoses / Procedures Referred By Junaid bell Referred To Contact RADIOLOGY Diagnoses Age-related osteoporosis without current pathological fracture Procedures BONE DENSITY/DEXA W VERT FRACTURE Narendra Ivey MD 3 [facility] [id number] [place] [address] Phone: tel: fax: Referral ID Status Reason Start Date Expiration Date Visits Re quested Visits Authorized [id number] Closed 09/08/2021 10/09/2022 1 1 Encounter Details Date Type Department Care Team (Late st Contact Info) Description 01/11/2022 12:28 PM CDT - 01/11/2022 11:59 PM CDT Hospital Encounter [facility] [address] [facility] [place] [address] Narendra Claros MD [address] [facility] [address] [place] [address] Discharge Disposition: Home or Self Care (Routine [...] Procedure Name Priority Date/Time Associated Diagnosis Comments BONE DENSITY/DEXA W VERT FRACTURE ASSES Routine 01/11/2022 1:01 PM CDT Age-related osteoporosis without current pathological fracture documented in this encounter Results * BONE DENSITY/DEXA W VERT FRACTURE ASSES [...] MD - 01/11/2022 EXAMINATION: BONE DENSITY/DEXA W VERT FRACTURE ASSES INDICATIONS: Age-related osteoporosis without current pathologicalfracture COMPARISON: [...] Narendra Claros MD DEXA Final Resu lt documented in this encounter Visit Diagnoses Diagnosis Age-related osteoporosis without current pathological fracture Senile osteoporosis documented in this encounter Care Teams Stone Sawyer Relationship Specialty Start Date End Date Narendra Claros MD 3 [facility] [address] [place] [address] PCP - General FAMILY PRACTICE 07/29/21 documented as of this encounter
--- OUTSIDE RECORDS SUMMARY | 2024-03-31 23:28 | XMS_ITS | Encounter Summary ---
Author Organization [facility] Address [address] [place]: Epic Prelude ADT [place] [address] Care Team Providers Care Patient Safety Sitter Name Role Phone David Mays MD Primary Care Prov ider Encounter Details Date Type Department Care Team (Latest Contact Info) Description 02/04/2021 Travel Social History Tobacco Use Types Packs/Day [...] on filedocumented in this encounter Care Teams Patient Safety Sitter Relationship Specialty Start Date End Date David Mays MD PCP - General Family Practice 01/27/16 documented as of this encounter
--- OUTSIDE RECORDS SUMMARY | 2024-03-31 23:28 | XMS_ITS | Encounter Summary ---
Author Organization [facility] Address [address] [place] [address] Care Team Providers Care Fit Model Name Role Phone David Mays MD Primary Care Prov ider Reason for Visit * Reason Onset Date Comments release of information form 03/06/2021 Encounter Details Date Type Department Care Team (Late st Contact Info) Description 03/06/2021 Telephone [facility] FAMILY MEDICINE - [address] [address] David Mays MD [address] [place] [address] release of information form Social History Tobacco Use Types Packs/Day Years [...] encounter Miscellaneous Notes * Telephone Encounter - JohnsonSaskia LPN - 03/06/2021 3:19 PM CST Mailed forms for medical release of records to new provider. Pt is aware. States that she will be looking for them in the mail. She thanks us greatly for all the help we have given her in this transition. T SUPERVISOR MELTING * Telephone Encounter - EmArleth - 03/06/2021 2:29 PM CST PCP: David Mays MD Caller: Krys Cook - patient Message: Patient wants her medical records sent to her and her new PCP. Informed her she would need to sign release of information forms. She does not have a computer to print forms from [employer]. Requesting we mail Patient Request form and [employer] Request form (may want to send records to new PCP) MAIL TO: [address] [facility] [id number] Patient will drop off completed form or will mail back to office. Patient call back ph: [phone] T SUPERVISOR MELTING documented in this encounter Plan of Treatment Not on file documented as of this encounter Visit Diagnoses Not on filedocumented in this encounter Care Teams Fit Model Relationship Specialty Start Date End Date David Mays MD PCP - General Family Practice 01/27/16 documented as of this encounter
--- OUTSIDE RECORDS SUMMARY | 2024-03-31 23:29 | XMS_ITS | Encounter Summary ---
Author Organization [facility] Address [address] [place] [address] Care Team Providers Care Personal Support Worker Name Role Phone David Mays MD Primary Care Prov ider Reason for Visit * Reason Comments Medication Refill Encounter Details Date Type Department Care Team (Late st Contact Info) Description 11/07/2017 Refill [facility] - [address] [address] David Mays MD [address] [place] [phone] Essential hypertension Social History Tobacco Use Types Packs/Day Years [...] encounter Miscellaneous Notes * Telephone Encounter - Linda Pineda - 11/07/2017 5:24 PM CDT NOV 04/28/2018 TUAN 10/26/2017 Last fill 04/27/2017 lisinopril Clonazepam & zolpidem 10/07/2017 documented in this encounter Plan of Treatment Not on file documented as of this encounter Visit Diagnoses Diagnosis Essential hypertension Unspecified essential hypertension documented in this encounter Care Teams Personal Support Worker Relationship Specialty Start Date End Date David Mays MD PCP - General Family Practice 01/27/16 documented as of this encounter
--- OUTSIDE RECORDS SUMMARY | 2024-03-31 23:29 | XMS_ITS | Encounter Summary ---
Author Organization [facility] Address [address] [place] [address] Care Team Providers Care Fruit Pitter Name Role Phone David Mays MD Primary Care Prov ider Reason for Visit * Reason Onset Date Comments Labs Only 04/25/2017 Encounter Details Date Type Department Care Team (Late st Contact Info) Description 04/25/2017 Telephone [facility] MED[facility] [address] [address] David Mays MD [address] [facility] [phone] Labs Only Social History Tobacco Use Types Packs/Day Years [...] * Telephone Encounter - Linda Pineda - 04/25/2017 6:09 PM CST Results are interfaced, pt informed, will f/u at appt. ET AGENT * Telephone Encounter - Kala Causey - 04/25/2017 4:27 PM CST Pt stated that she had labs done on Tuesday04/22/2017 at [place], wanted to make sure that Dr Mays had received the results to review at office visit on Tue04/27/2017. Please advise ET AGENT documented in this encounter Plan of Treatment Not on file documented as of this encounter Visit Diagnoses Not on filedocumented in this encounter Care Teams Fruit Pitter Relationship Specialty Start Date End Date David Mays MD PCP - General Family Practice 01/27/16 documented as of this encounter
--- OUTSIDE RECORDS SUMMARY | 2024-03-31 23:29 | XMS_ITS | Encounter Summary ---
Author Organization [facility] Address [address] [place] [address] Care Team Providers Care Network Analyst Name Role Phone David Mays MD Primary Care Prov ider Reason for Visit * Reason Comments Medication Refill Encounter Details Date Type Department Care Team (Late st Contact Info) Description 03/08/2018 Refill [facility] [address] [address] David Mays MD [address] [place] [phone] Hypercholesterolemia Social History Tobacco Use Types Packs/Day [...] encounter Miscellaneous Notes * Telephone Encounter - Teresita Farley CMA - 03/08/2018 11:43 AM STEEL FABRICATOR NOV 04/28/2018 TUAN 10/26/17 Last refill date: 12/07/17-lipitor. 02/07/18 L FABRICATOR documented in this encounter Plan of Treatment Not on file documented as of this encounter Visit Diagnoses Diagnosis Hypercholesterolemia Pure hypercholesterolemia documented in this encounter Care Teams Network Analyst Relationship Specialty Start Date End Date David Mays MD PCP - General Family Practice 01/27/16 documented as of this encounter
--- OUTSIDE RECORDS SUMMARY | 2024-03-31 23:29 | XMS_ITS | Encounter Summary ---
Author Organization [facility] Address [address] [place] [address] Care Team Providers Care Coal Digger Name Role Phone David Mays MD Primary Care Prov ider Reason for Visit * Reason Comments Medication Refill Encounter Details Date Type Department Care Team (Late st Contact Info) Description 07/19/[address] [address] David Mays MD [address] [place] [phone] GUSTAVO (generalized anxiety disorder) (Primary Dx) Social History Tobacco Use Types Packs/Day Years [...] encounter Miscellaneous Notes * Telephone Encounter - Kristel Cuadra - 07/21/2018 7:20 AM CDT TUAN- 04/28/18 LRF- 06/17/18 NOV- 10/27/18 documented in this encounter Plan of Treatment Not on file documented as of this encounter Visit Diagnoses Diagnosis GUSTAVO (generalized anxiety disorder)- Primary Generalized anxiety disorder documented in this encounter Care Teams Coal Digger Relationship Specialty Start Date End Date David Mays MD PCP - General Family Practice 01/27/16 documented as of this encounter
--- OUTSIDE RECORDS SUMMARY | 2024-03-31 23:29 | XMS_ITS | Encounter Summary ---
Author Organization [facility] Address [address] [place] [address] Care Team Providers Care Flour Inspector Name Role Phone David Mays MD Primary Care Prov ider Reason for Visit * Reason Comments Medication Refill Encounter Details Date Type Department Care Team (Late st Contact Info) Description 02/15/2020 Refill [facility]INE - [address] [address] David Mays MD [address] [place] [phone] GUSTAVO (generalized anxiety disorder); Insomnia, unspecified type [...] Miscellaneous Notes * Telephone Encounter - Iva Boyd - 02/15/2020 1:09 PM CST Medication: KlonoPIN Last office visit: 11/20/2019 Next office visit: 05/27/2020 Last refill: 01/15/2020 Last # of refills 0 Quantity: 15 Medication: Ambien Last office visit: 11/20/2019 Next office visit: 05/27/2020 Last refill: 01/15/2020 Last # of refills: 0 Quantity: 30 Requested Prescriptions Pending Prescriptions Disp Refills ??? clonazePAM (KlonoPIN) 1 mg tablet [Pharmacy Med Name: CLONAZEPAM 1 MG TABS 1 Tablet] 15 Tablet 0 Sig: TAKE 0.5 TABLETS (0.5 MG) BY MOUTH NIGHTLY NEEDED FOR ANXIETY. ??? zolpidem (AMBIEN) 5 mg tablet [Pharmacy Med Name: ZOLPIDEM TARTRATE 5 MG TAB 5 Tablet] 30 Tablet 0 Sig: TAKE 1 TABLET (5 MG) BY MOUTH NIGHTLY NEEDED FOR INSOMNIA. LE ARCHITECT documented in this encounter Plan of Treatment Not on file documented as of this encounter Visit Diagnoses Diagnosis GUSTAVO (generalized anxiety disorder) Generalized anxiety disorder Insomnia, unspecified type documented in this encounter Care Teams Flour Inspector Relationship Specialty Start Date End Date David Mays MD PCP - General Family Practice 01/27/16 documented as of this encounter
--- OUTSIDE RECORDS SUMMARY | 2024-03-31 23:29 | XMS_ITS | Encounter Summary ---
Author Organization [facility] Address [address] [place] [address] Care Team Providers Care Patent Agent Name Role Phone David Mays MD Primary Care Prov ider Reason for Visit * Reason Comments Medication Refill Encounter Details Date Type Department Care Team (Late st Contact Info) Description 12/07/[address] [address] David Mays MD [address] [place] [phone] Essential hypertension Social History Tobacco Use Types [...] hypertension documented in this encounter Care Teams Patent Agent Relationship Specialty Start Date End Date David Mays MD PCP - General Family Practice 01/27/16 documented as of this encounter
--- OUTSIDE RECORDS SUMMARY | 2024-03-31 23:29 | XMS_ITS | Encounter Summary ---
Author Organization [facility] Address [address] [place] [address] Care Team Providers Care Data Specialist Name Role Phone David Mays MD Primary Care Prov ider Reason for Visit * Reason Comments Follow Up Information Encounter Details Date Type Department Care Team (Late st Contact Info) Description 04/28/2018 1:20 PM SUPERVISOR ROVING Office Visit [facility] MEDICINE [address] [address] David Mays MD [address] [place] [phone] Hypercholesterolemia (Primary Dx); Abnormal LFTs (liver function tests); Current mild episode of major depressive disorder without prior episode; Tobacco use Social History Tobacco Use Types Packs/Day Years Used Date Smoking Tobacco: Every Day Cigarettes Comments:3-4 cigarettes robyn y Alcohol Use Standard Drinks/Week Comments No 0 (1 standard drink = 0.6 oz pur e alcohol) Sex and Gender Information Value Date Recorded Sex Assigned at Not on file Gender Identity Not on file Sexual Orientation Not on file documented as of this encounter Last Filed Vital Signs Vital Sign Reading Time Taken Comments Blood Pressure 130/83 04/28/2018 1:22 PM SUPERVISOR ROVING Pulse 81 04/28/2018 1:22 PM SUPERVISOR ROVING Temperature - - Respiratory Rate 16 04/28/2018 1:22 PM SUPERVISOR ROVING Oxygen Saturation - - Inhaled Oxygen Concentration - - Weight 59.4 kg (131 lb) 04/28/2018 1:22 PM SUPERVISOR ROVING Height 162.6 cm (5' 4 ) 04/28/2018 1:22 PM SUPERVISOR ROVING Body Mass Index 22.49 04/28/2018 1:22 PM SUPERVISOR ROVING documented in this encounter Progress Notes * David Mays MD - 04/28/2018 1:54 PM CST HISTORY OF PRESENT ILLNESS Krys Cook, a 62 y.o. female presents with a Chief Complaint of Follow Up and Information Subjective HPI Chief Complaint Patient presents with ??? Follow Up ??? Information Better. Not on a lot of stress. Stopped alcohol. Mood stable. On celexa. Klonopin. And ambien. Does not taking every night. Hx hld. Lipitor. Stable. Improved diet and more active. Rehabbing house. Lab Results Component Value Date/Time CHOLTOT 187 04/21/2018 04:40 AM HDL 52 04/21/2018 04:40 AM LDLCALC 113 (H) 04/21/2018 04:40 AM TRIGLYCERIDE 109 04/21/2018 04:40 AM Smoking - not ready to quit. Patient Active Problem List Diagnosis Date Noted ??? Depression 01/27/2016 ??? Hypercholesterolemia 01/27/2016 ??? Hypertension 01/27/2016 ??? Adiposity 01/27/2016 ??? Tobacco use 07/16/2015 Current Outpatient Prescriptions on File Prior to Visit Medication Sig Dispense Refill ??? clonazePAM (KlonoPIN) 1 mg tablet Take 0.5 Tablets (0.5 mg) by mouth 1 time daily as needed forAnxiety AT BEDTIME NEEDED FOR ANXIETY.. 15 Tablet 0 ??? citalopram (CeleXA) 20 mg tablet TAKE 1 TABLET BY MOUTH ONCE DAILY 90 Tablet 2 ??? zolpidem (AMBIEN) 5 mg tablet TAKE 1 TABLET BY MOUTH ONCE DAILY AT BEDTIME NEEDED FOR INSOMNIA 30 Tablet 0 ??? atorvastatin (LIPITOR) 40 mg tablet TAKE ONE TABLET BY MOUTH ONCE DAILY LATE IN THE DAY 90 Tablet 2 ??? lisinopril (PRINIVIL) 20 mg tablet TAKE ONE TABLET BY MOUTH ONCE DAILY 90 Tablet 1 ??? aspirin (ECOTRIN EC) 81 mg Tablet, Delayed Release (E.C.) Take 81 mg by mouth daily. No current facility-administered medications on file prior to visit. No Known Allergies Social History Substance Use Topics ??? Smoking status: Current Every Day Smoker Packs/day: 0.20 Types: Cigarettes ??? Smokeless tobacco: Not on file Comment: 3-4 cigarettes daily ??? Alcohol use No REVIEW OF SYSTEMS Review of Systems Constitutional: Negative for fatigue and fever. HENT: Negative for congestion. Respiratory: Negative for chest tightness and shortness of breath. Cardiovascular: Negative for chest pain, palpitations and leg swelling. Gastrointestinal: Negative for abdominal pain. Genitourinary: Negative for difficulty urinating. Musculoskeletal: Negative for arthralgias. Neurological: Negative for dizziness, weakness and headaches. Psychiatric/Behavioral: Negative. Negative for agitation, dysphoric mood and sleep disturbance. Objective PHYSICAL EXAM BP 130/83 Pulse 81 Resp 16 Ht 5' 4 (1.626 m) Wt 59.4 kg (131 lb) BMI 22.49 kg/m?? Physical Exam Constitutional: She appears well-developed. Eyes: Pupils are equal, round, and reactive to light. Neck: Normal range of motion. Neck supple. No thyromegaly present. Cardiovascular: Normal rate and regular rhythm. Pulmonary/Chest: Effort normal and breath sounds normal. Musculoskeletal: Normal range of motion. She exhibits no edema or tenderness. Psychiatric: She has a normal mood and affect. Her behavior is normal. Thought content normal. Procedures Assessment ASSESSMENT and PLAN: Problem List Items Addressed This Visit Complex Diagnosis Hypercholesterolemia - Primary improved. The current medical regimen is effective; continue presentplan and medications. Other Depression The current medical regimen is effective; continue present plan and medications. Tobacco use The patient is sincerely urged to quit smoking. The numerous direct health benefits arediscussed. If she decides to quit, there are a number of helpful adjunctive aids, and she can see me to discuss nicotine replacement therapy and bupropion anytime in the future. Other Visit Diagnoses Abnormal LFTs (liver function tests) Avoidance of alcohol TOBACCO COUNSELING She was counseled to discontinue tobacco use. RVISOR ROVING documented in this encounter Plan of Treatment Not on file documented as of this encounter Visit Diagnoses Diagnosis Hypercholesterolemia- Primary Pure hypercholesterolemia Abnormal LFTs (liver function tests) Other abnormal blood chemistry Current mild episode of major depressive disorder without prior episode Tobacco use Tobacco use disorder documented in this encounter Care Teams Data Specialist Relationship Specialty Start Date End Date David Mays MD PCP - General Family Practice 01/27/16 documented as of this encounter
--- OUTSIDE RECORDS SUMMARY | 2024-03-31 23:29 | XMS_ITS | Encounter Summary ---
Author Organization [facility] Address [address] [place] [address] Care Team Providers Care Utility Manager Name Role Phone David Mays MD Primary Care Prov ider Reason for Visit * Reason Onset Date Comments Medication Refill 11/19/2016 Encounter Details Date Type Department Care Team (Late st Contact Info) Description 11/19/2016 Refill [facility] [address] [address] David Mays MD [address] [place] [phone] Social History Tobacco Use Types Packs/Day Years [...] * Telephone Encounter - Linda Pineda - 11/19/2016 6:27 PM CDT LM on pharmacy line. Mailed reminder card to pt to schedule f/u * Telephone Encounter - David Mays MD - 11/19/2016 5:38 PM CDT Refilled. Please set up f/u appt prior to next refill. * Telephone Encounter - Linda Pineda - 11/19/2016 11:14 AM CDT NOV 04/27/2017 TUAN 07/28/2016 Last fill 10/20/2016 documented in this encounter Plan of Treatment Not on file documented as of this encounter Visit Diagnoses Not on filedocumented in this encounter Care Teams Utility Manager Relationship Specialty Start Date End Date David Mays MD PCP - General Family Practice 01/27/16 documented as of this encounter
--- OUTSIDE RECORDS SUMMARY | 2024-03-31 23:29 | XMS_ITS | Encounter Summary ---
Author Organization [facility] Address [address] [place] [address] Care Team Providers Care Bootmaker Hand Name Role Phone David Mays MD Primary Care Prov ider Reason for Visit * Reason Comments Medication Refill Encounter Details Date Type Department Care Team (Late st Contact Info) Description 12/27/2016 Refill [facility]INE [address] [address] David Mays MD [address] [place] [phone] Social History Tobacco Use Types Packs/Day Years [...] * Telephone Encounter - Linda Pineda - 12/28/2016 5:33 PM CDT LM on pharmacy line. * Telephone Encounter - Linda Pienda - 12/27/2016 4:47 PM CDT NOV 04/27/2017 TUAN 07/28/2016 Last fill 11/19/2016 documented in this encounter Plan of Treatment Not on file documented as of this encounter Visit Diagnoses Not on filedocumented in this encounter Care Teams Bootmaker Hand Relationship Specialty Start Date End Date David Mays MD PCP - General Family Practice 01/27/16 documented as of this encounter
--- OUTSIDE RECORDS SUMMARY | 2024-03-31 23:29 | XMS_ITS | Encounter Summary ---
Author Organization [facility] Address [address] [place] [address] Care Team Providers Care Retail Special Event Associate Name Role Phone David Mays MD Primary Care Prov ider Reason for Visit * Reason Comments Medication Refill Encounter Details Date Type Department Care Team (Late st Contact Info) Description 06/15/2018 Refill [facility]INE [address] [address] David Mays MD [address] [place] [phone] Social History Tobacco Use Types Packs/Day Years [...] Telephone Encounter - Teresita Farley CMA - 06/15/2018 11:43 AM CDT NOV 10/27/2018 TUAN 04/28/18 Last refill date: 05/19/18 documented in this encounter Plan of Treatment Not on file documented as of this encounter Visit Diagnoses Not on filedocumented in this encounter Care Teams Retail Special Event Associate Relationship Specialty Start Date End Date David Mays MD PCP - General Family Practice 01/27/16 documented as of this encounter
--- OUTSIDE RECORDS SUMMARY | 2024-03-31 23:29 | XMS_ITS | Encounter Summary ---
Author Organization [facility] Address [address] [place] [address] Care Team Providers Care Dry Cure Worker Name Role Phone David Mays MD Primary Care Prov ider Reason for Visit * Reason Onset Date Comments Medication Refill 08/18/2016 Encounter Details Date Type Department Care Team (Late st Contact Info) Description 08/18/2016 Refill [facility] - [address] [address] David Mays MD [address] [place] [phone] Social History Tobacco Use Types Packs/Day Years [...] * Telephone Encounter - Linda Pineda - 08/18/2016 6:42 PM CDT LM on pharmacy line for both. * Telephone Encounter - Teresita Farley CMA - 08/18/2016 5:19 PM CDT Last RFL 07/19/16 TUAN 07/28/16 NOV 07/28/16 documented in this encounter Plan of Treatment Not on file documented as of this encounter Visit Diagnoses Not on filedocumented in this encounter Care Teams Dry Cure Worker Relationship Specialty Start Date End Date David Mays MD PCP - General Family Practice 01/27/16 documented as of this encounter
--- OUTSIDE RECORDS SUMMARY | 2024-03-31 23:29 | XMS_ITS | Encounter Summary ---
Author Organization [facility] Address [address] [place] [address] Care Team Providers Care Dispensing Optician Name Role Phone David Mays MD Primary Care Prov ider Reason for Visit * Reason Comments Medication Refill Encounter Details Date Type Department Care Team (Late st Contact Info) Description 01/12/[address] [address] David Mays MD [address] [place] [phone] GUSTAVO (generalized anxiety disorder); Insomnia, unspecified type [...] encounter Miscellaneous Notes * Telephone Encounter - Saskia Parish - 01/13/2020 9:44 PM CDT Laurel Young Both last refilled 12/21/2019 Last appt 11/20/2019 Next appt 05/27/2020 documented in this encounter Plan of Treatment Not on file documented as of this encounter Visit Diagnoses Diagnosis GUSTAVO (generalized anxiety disorder) Generalized anxiety disorder Insomnia, unspecified type documented in this encounter Care Teams Dispensing Optician Relationship Specialty Start Date End Date David Mays MD PCP - General Family Practice 01/27/16 documented as of this encounter
--- OUTSIDE RECORDS SUMMARY | 2024-03-31 23:29 | XMS_ITS | Encounter Summary ---
Author Organization [facility] Address [address] [place] [address] Care Team Providers Care Edge Plugger Name Role Phone David Mays MD Primary Care Prov ider Reason for Visit * Reason Comments Medication Refill Encounter Details Date Type Department Care Team (Late st Contact Info) Description 09/18/2018 Refill [facility] MEDICINE - [address] [address] David Mays MD [address] [place] [phone] GUSTAVO (generalized anxiety disorder) Social History Tobacco [...] Miscellaneous Notes * Telephone Encounter - Saskia Villalobos - 09/18/2018 3:00 PM CDT CLONAZEPAM 1 MG TAB 1 TAB Last RFL 08/17/18 TUAN 04/28/18 NOV 10/27/18 documented in this encounter Plan of Treatment Not on file documented as of this encounter Visit Diagnoses Diagnosis GUSTAVO (generalized anxiety disorder) Generalized anxiety disorder documented in this encounter Care Teams Edge Plugger Relationship Specialty Start Date End Date David Mays MD PCP - General Family Practice 01/27/16 documented as of this encounter
--- OUTSIDE RECORDS SUMMARY | 2024-03-31 23:29 | XMS_ITS | Encounter Summary ---
Author Organization [facility] Address [address] [place] [address] Care Team Providers Care International Operations Manager Name Role Phone David Mays MD Primary Care Prov ider Reason for Visit * Reason Comments Medication Refill Encounter Details Date Type Department Care Team (Late st Contact Info) Description 09/11/[address] [address] David Mays MD [address] [place] [phone] GUSTAVO (generalized anxiety disorder); Insomnia, unspecified type [...] * Telephone Encounter - Kristel Cuadra - 09/11/2019 3:46 PM CDT LRF-08/16/19 NOV- 11/20/19 TUAN- 05/21/19 documented in this encounter Plan of Treatment Not on file documented as of this encounter Visit Diagnoses Diagnosis GUSTAVO (generalized anxiety disorder) Generalized anxiety disorder Insomnia, unspecified type documented in this encounter Care Teams International Operations Manager Relationship Specialty Start Date End Date David Mays MD PCP - General Family Practice 01/27/16 documented as of this encounter
--- OUTSIDE RECORDS SUMMARY | 2024-03-31 23:29 | XMS_ITS | Encounter Summary ---
Author Organization [facility] Address [address] [place] [address] Care Team Providers Care Grants Analyst Name Role Phone David Mays MD Primary Care Prov ider Reason for Visit * Reason Comments Medication Refill Encounter Details Date Type Department Care Team (Late st Contact Info) Description 09/08/2017 Refill [facility] [address] [address] David Mays MD [address] [place] [phone] Social History Tobacco Use Types Packs/Day Years [...] as of this encounter Miscellaneous Notes * Addendum Note - Duarte Edwards - 09/08/2017 11:58 AM CDTAddended by: DUARTE EDWARDS on: 09/08/2017 11:58 AM Modules accepted: Orders * Telephone Encounter - Duarte Edwards - 09/08/2017 11:52 AM CDT NOV 10/26/2017 TUAN 04/27/2017 Last fill 08/09/2017 documented in this encounter Plan of Treatment Not on file documented as of this encounter Visit Diagnoses Not on filedocumented in this encounter Care Teams Grants Analyst Relationship Specialty Start Date End Date David Mays MD PCP - General Family Practice 01/27/16 documented as of this encounter
--- OUTSIDE RECORDS SUMMARY | 2024-03-31 23:29 | XMS_ITS | Encounter Summary ---
Author Organization [facility] Address [address] [place] [address] Care Team Providers Care Technical Training Manager Name Role Phone David Mays MD Primary Care Prov ider Reason for Visit * Reason Comments Follow Up 6 month Information hm informed Medication Review Lovastatin Encounter Details Date Type Department Care Team (Late st Contact Info) Description 07/28/2016 1:30 PM CDT Office Visit [facility] MEDICINE [address] [address] David Mays MD [address] [place] [address] Hypercholesterolemia (Primary Dx); Tobacco use; Essential hypertension; Non-seasonal allergic rhinitis, unspecified allergic rhinitis trigger Social History Tobacco Use Types Packs/Day Years [...] Sign Reading Time Taken Comments Blood Pressure 122/78 07/28/2016 1:33 PM CDT Pulse 82 07/28/2016 1:33 PM CDT Temperature - - Respiratory Rate 15 07/28/2016 1:33 PM CDT Oxygen Saturation - - Inhaled Oxygen Concentration - - Weight 69.8 kg (153 lb 14.4 oz) 07/28/2016 1:33 PM CDT Height 162.6 cm (5' 4 ) 07/28/2016 1:33 PM CDT Body Mass Index 26.42 07/28/2016 1:33 PM CDT documented in this encounter Progress Notes * David Mays MD - 07/28/2016 1:47 PM CDT HISTORY OF PRESENT ILLNESS Krys Cook, a 60 y.o. female presents with a Chief Complaint of Follow Up (6 month); Information(hm informed); and Medication Review (Lovastatin) Subjective HPI Chief Complaint Patient presents with ??? Follow Up 6 month ??? Information hm informed ??? Medication Review Lovastatin Krys is 60 y/o wf presents to clinic for f/u. Known history of Hypertension. She is taking medications as instructed, no side effects of medications, no chest pain on exertion, no dyspnea on exertion, no edema , patient does not perform home BP monitoring, range. She is following low salt diet and exercise. ?? Has hx of HLD has been taking pravachol statin cholesterol medication regularly without side effects such as myalgias or upper abdominal pain, nausea or jaundice. Noted to have elevated ldl and trig.Not following low chol diet and regular exercise. ?? Has history of Depression and insominia. Currently on celexa and klonopin and ambien. Tolerating medication. Denies side effect. Mood has improved. No crying spells, mood swing and insomnia. Denies suicidal and homicidal ideation. ?? Also noted to have high bicarb, advised to have sleep study. Declined at this time. ?? Declined vaccine and colonoscopy. ?? REVIEW OF SYSTEMS Review of Systems Constitutional: Negative for fatigue and fever. HENT: Positive for congestion, postnasal drip and rhinorrhea. Negative for sinus pressure. Respiratory: Negative for cough, chest tightness, shortness of breath and wheezing. Cardiovascular: Negative for chest pain, palpitations and leg swelling. Gastrointestinal: Negative for abdominal pain. Genitourinary: Negative for difficulty urinating. Musculoskeletal: Negative for arthralgias. Neurological: Negative for dizziness, weakness and headaches. Psychiatric/Behavioral: Negative. Negative for agitation, dysphoric mood and sleep disturbance. Objective PHYSICAL EXAM BP 122/78 Pulse 82 Resp 15 Ht 5' 4 (1.626 m) Wt 69.8 kg (153 lb 14.4 oz) ? No BMI 26.42 kg/m2 Physical Exam Constitutional: She appears well-developed. HENT: Right Ear: Tympanic membrane is bulging. Left Ear: Tympanic membrane is bulging. Nose: Mucosal edema and rhinorrhea present. Right sinus exhibits no frontal sinus tenderness. Left sinus exhibits no frontal sinus tenderness. Mouth/Throat: Oropharynx is clear and moist. Eyes: Pupils are equal, round, and reactive to light. Neck: Normal range of motion. Neck supple. No thyromegaly present. Cardiovascular: Normal rate and regular rhythm. Pulmonary/Chest: Effort normal and breath sounds normal. Lymphadenopathy: She has no cervical adenopathy. Assessment ASSESSMENT and PLAN: 1. Hypercholesterolemia Continue current medication, low cholesterol diet, and regular exercise - lovastatin (MEVACOR) 40 mg tablet; Take 1 Tablet (40 mg) by mouth daily. Dispense: 90 Tablet; Refill: 1 2. Tobacco use The patient is sincerely urged to quit smoking. The numerous direct health benefits are discussed. If she decides to quit, there are a number of helpful adjunctive aids, and she can see me to discussnicotine replacement therapy and bupropion anytime in the future. 3. Essential hypertension Continue current medication, low salt diet and regular exercise. Encourage blood pressure monitoring at home. 4. Non-seasonal allergic rhinitis, unspecified allergic rhinitis trigger The causes and treatment of seasonal allergic rhinitis are discussed in detail. Allergen avoidance,use and side effects of OTC and prescription antihistamine decongestant products, and the use and side effects of inhaled nasal corticosteroids is reviewed. - triamcinolone acetonide (NASACORT AQ) 55 mcg nasal spray; Administer 1 [place] in each nostril daily. Dispense: 17 Gram; Refill: 3 documented in this encounter Plan of Treatment Not on file documented as of this encounter Visit Diagnoses Diagnosis Hypercholesterolemia- Primary Pure hypercholesterolemia Tobacco use Tobacco use disorder Essential hypertension Unspecified essential hypertension Non-seasonal allergic rhinitis, unspecified allergic rhinitis trigger documented in this encounter Care Teams Technical Training Manager Relationship Specialty Start Date End Date David Mays MD PCP - General Family Practice 01/27/16 documented as of this encounter
--- OUTSIDE RECORDS SUMMARY | 2024-03-31 23:29 | XMS_ITS | Encounter Summary ---
Author Organization [facility] Address [address] [place] [address] Care Team Providers Care Oak Tanner Name Role Phone David Mays MD Primary Care Prov ider Reason for Visit * Reason Comments Medication Refill Encounter Details Date Type Department Care Team (Late st Contact Info) Description 04/12/[address] [address] David Mays MD [address] [place] [phone] Insomnia, unspecified type; GUSTAVO (generalized anxiety disorder) [...] * Telephone Encounter - Saskia Parish - 04/13/2020 2:37 PM CST Klonopin for #15 Ambien for #30 Both last refilled 03/13/20 Last appt 11/20/19 Next appt 05/27/20 ET MAKER documented in this encounter Plan of Treatment Not on file documented as of this encounter Visit Diagnoses Diagnosis Insomnia, unspecified type GUSTAVO (generalized anxiety disorder) Generalized anxiety disorder documented in this encounter Care Teams Oak Tanner Relationship Specialty Start Date End Date David Mays MD PCP - General Family Practice 01/27/16 documented as of this encounter
--- OUTSIDE RECORDS SUMMARY | 2024-03-31 23:29 | XMS_ITS | Encounter Summary ---
Author Organization [facility] Address [address] [place] [address] Care Team Providers Care Turntable Man Name Role Phone David Mays MD Primary Care Prov ider Reason for Visit * Reason Comments Medication Review follow up Encounter Details Date Type Department Care Team (Late st Contact Info) Description 11/20/2019 4:00 PM CDT Office Visit [address] [address] David Mays MD [address] [place] [phone] Hypercholesterolemia (Primary Dx); GUSTAVO (generalized anxiety disorder); Insomnia, unspecified type; Dental infection; Essential hypertension Social History Tobacco Use Types Packs/Day Years Used Date Smoking Tobacco: Every Day Cigarettes Tobacco Cessation:Counseling Given: No Comments:3-4 cigarettes daily Alcohol Use [...] have Coronavirus / COVID-19? No / Unsure 11/20/2019 3:33 PM CDT documented as of this encounter Last Filed Vital Signs Vital Sign Reading Time Taken Comments Blood Pressure 129/80 11/20/2019 4:01 PM CDT Pulse 62 11/20/2019 4:01 PM CDT Temperature 36.6 ??C (97.8 ??F) 11/20/2019 4:01 PM CD T Respiratory Rate 14 11/20/2019 4:01 PM CDT Oxygen Saturation 97% 11/20/2019 4:01 PM CDT Inhaled Oxygen Concentration - - Weight 55.3 kg (122 lb) 11/20/2019 4:01 PM CDT Height 162.6 cm (5' 4 ) 11/20/2019 4:01 PM CDT Body Mass Index 20.94 11/20/2019 4:01 PM CDT documented in this encounter Progress Notes * David Mays MD - 11/20/2019 4:00 PM CDT HISTORY OF PRESENT ILLNESS Krys Cook, a 63 y.o. female presents with a Chief Complaint of Medication Review (follow up) Subjective HPI SUBJECTIVE: Krys Cook is a 63 y.o. female who is here today for review and management of her chronic medical conditions as listed. She does not report acute complaints. I have reviewed the patient's medical and social history with her and updated the computerized patient record. reports that she has been smoking cigarettes. She has been smoking about 0.20 packs per day. She does not have any smokeless tobacco history on file. Tobacco Intervention She was counseled to discontinue tobacco use. Fall Risk She has had no falls in the past year. Depression Screen Positive: PHQ-2 score >= 3 or PHQ-9 score >= 9 PHQ-2 Total: 0 (11/20/2019 4:01 PM) PHQ-9 Total: 0 (11/20/2019 4:01 PM) DEPRESSION PLAN OF CARE Her antidepressant medication was reviewed Normal BMI Range: 18 & older: > or = 18.5 and < 25 Body mass index is 20.94 kg/m??. BMI within normal limits HPI: 1. Hypercholesterolemia On lipitor 40 mg . Taking medications, denies side effects. Admits not always following recommendeddiet and exercise. Patient denies any exertional chest pain, dyspnea, palpitations, syncope, orthopnea, edema or paroxysmal nocturnal dyspnea. Lab Results Component Value Date/Time CHOLTOT 151 11/13/2019 11:50 AM HDL 52 11/13/2019 11:50 AM LDLCALC 76 11/13/2019 11:50 AM TRIGLYCERIDE 144 11/13/2019 11:50 AM Lab Results Component Value Date/Time ALT 21 05/16/2019 08:34 AM AST 17 05/16/2019 08:34 AM ALKPHOS 89 05/16/2019 08:34 AM 2. GUSTAVO (generalized anxiety disorder) Stable. On celexa and klonopin. Denies fatigue or loss of energy , Loss of interest or pleasure (anhedonia) , weight changes, change of appetite, crying spells, mood swing, and insomnia. Denies suicidal and homicidal ideation. - clonazePAM (KlonoPIN) 1 mg tablet; Take 0.5 Tablets (0.5 mg) by mouth nightly as needed for Anxiety. Dispense: 15 Tablet; Refill: 0 3. Insomnia, unspecified type Stable on ambien. Denies side effects. - zolpidem (AMBIEN) 5 mg tablet; Take 1 Tablet (5 mg) by mouth nightly as needed for Insomnia. Dispense: 30 Tablet; Refill: 0 4. Dental infection Admits to having swelling and pain on left lower molar. Will be seeing dentist. - amoxicillin (AMOXIL) 500 mg Tablet; Take 1 Tablet (500 mg) by mouth every 8 hours for 10 days. Dispense: 30 Tablet; Refill: 0 5. Essential hypertension Taking medications, denies side effects. Admits not always following recommended diet and exercise.Patient denies any exertional chest pain, dyspnea, palpitations, syncope, orthopnea, edema or paroxysmal nocturnal dyspnea. On lisinopril 40 mg and aspirin 81 mg. ROS: Cardiovascular: Denies chest pain or palpitations. No peripheral edema. Respiratory: Denies shortness of breath or cough. Abdominal: Denies abdominal pain, change in bowel habits. Neurological: No syncope. No severe headaches. PE: GENERAL: Alert and oriented. Pleasant and in no acute distress. Body Habitus: Normal BP 129/80 Pulse 62 Temp 97.8 ??F (36.6 ??C) Resp 14 Ht 5' 4 (1.626 m) Wt 55.3 kg (122 lb) SpO2 97% BMI 20.94 kg/m?? EYES: Conjunctivae and lids WNL. HEENT: Head is normocephalic and atraumatic. External ears appear normal. Nares are patent. Oropharynx is moist. Posterior pharynx is free from erythema or exudates. Tonsils are not enlarged. NECK: Supple without masses or adenopathy. Thyroid non-enlarged and non-tender. LUNGS: CTA bilaterally. No rales or rhonchi. HEART: regular without murmur. No gallop, S3/S4 or rub. ABDOMEN has positive bowel sounds. It is non distended and soft to palpation throughout. There is no tenderness to palpation in any area of the abdomen. EXTREMITIES: Warm and dry. Edema: none ASSESSMENT AND PLAN: Krys was seen today for medication review. Diagnoses and all orders for this visit: Hypercholesterolemia Continue current medication, low cholesterol diet, and regular exercise GUSTAVO (generalized anxiety disorder) Advised coping management skills like relaxation, exercise, counseling.Call or return to clinic prn if these symptoms worsen or fail to improve as anticipated. - clonazePAM (KlonoPIN) 1 mg tablet; Take 0.5 Tablets (0.5 mg) by mouth nightly as needed for Anxiety. Insomnia, unspecified type - zolpidem (AMBIEN) 5 mg tablet; Take 1 Tablet (5 mg) by mouth nightly as needed for Insomnia. Dental infection Comments: left lower molar Orders: - amoxicillin (AMOXIL) 500 mg Tablet; Take 1 Tablet (500 mg) by mouth every 8 hours for 10 days. Essential hypertension Continue current medication, low salt diet and regular exercise. Encourage blood pressure monitoring at home. Return in about 6 months (around 05/22/2020), or if symptoms worsen or fail to improve. I will inform the patient of any laboratory results and changes in treatment or followup plans based on those. Return at any time if needed. documented in this encounter Miscellaneous Notes * Patient Instructions - David Mays MD - 11/20/2019 4:43 PM CDT Images from the original note were not included. Lab Results Component Value Date/Time CHOLTOT 151 11/13/2019 11:50 AM HDL 52 11/13/2019 11:50 AM LDLCALC 76 11/13/2019 11:50 AM TRIGLYCERIDE 144 11/13/2019 11:50 AM Lab Results Component Value Date/Time NA 141 05/16/2019 08:34 AM K 3.4 (L) 05/16/2019 08:34 AM CL 100 05/16/2019 08:34 AM CO2 33 (H) 05/16/2019 08:34 AM CA 9.0 05/16/2019 08:34 AM BUN 5 (L) 05/16/2019 08:34 AM CREAT 0.83 05/16/2019 08:34 AM GLUCOSE 79 05/16/2019 08:34 AM TOTALPROTEIN 6.1 05/16/2019 08:34 AM ALBUMIN 3.9 05/16/2019 08:34 AM BILITOTAL 0.5 05/16/2019 08:34 AM ALKPHOS 89 05/16/2019 08:34 AM AST 17 05/16/2019 08:34 AM ALT 21 05/16/2019 08:34 AM BCRATIO 6 05/16/2019 08:34 AM Lab Results Component Value Date/Time TSHULTRA 1.96 05/16/2019 08:34 AM Potassium-Rich Diet: Care Instructions Your Care Instructions Potassium is a mineral. It helps keep the right mix of fluids in your body. It also helps your nerves and muscles work as they should. You'll find it in milk and meats. It's also in all fresh foods, including fruits and vegetables. Most adults need about 5 grams of potassium a day. The foods you eat should supply all that you need. Some health conditions can cause a loss of potassium. For example, kidney problems and stomach problems with vomiting and diarrhea can cause you to lose this mineral. Some medicines, such as water pills (diuretics), can cause low potassium. If you can't get enough potassium from what you eat, your doctor may advise you to take supplements. Follow-up care is a merino part of your treatment and safety. Be sure to make and go to all appointments, and call your doctor if you are having problems. It's also a good idea to know your test resultsand keep a list of the medicines you take. How can you care for yourself at home? ?? Plan your diet around foods that are rich in potassium. Fresh, unprocessed whole foods have the most. These foods include: ? Milk and other dairy products. ? Vegetables, especially broccoli, cooked dry beans, tomatoes, potatoes, artichokes, winter squash,and spinach. ? Fruits, especially citrus fruits, bananas, and apricots. Dried apricots contain more potassium than fresh apricots. ? Meat, poultry, and fish. ?? Ask your doctor about using a salt substitute or light salt. These often contain potassium. Where can you learn more? Go to https://www.Cam[employer].net/patiented Enter H315 in the search box to learn more about Potassium-Rich Diet: Care Instructions. Current as of: November 23, 2018?Content Version: 12.5 ?? [employer], [email or web address]. Care instructions adapted under license by your healthcare professional. If you have questions about a medical condition or this instruction, always ask your healthcare professional. These instructions may not represent the values of this healthcare organization. [employer] disclaims any warranty or liability for your use of this information. documented in this encounter Plan of Treatment Not on file documented as of this encounter Visit Diagnoses Diagnosis Hypercholesterolemia- Primary Pure hypercholesterolemia GUSTAVO (generalized anxiety disorder) Generalized anxiety disorder Insomnia, unspecified type Dental infection Acute apical periodontitis of pulpal origin Essential hypertension Unspecified essential hypertension documented in this encounter Care Teams Turntable Man Relationship Specialty Start Date End Date David Mays MD PCP - General Family Practice 01/27/16 documented as of this encounter
--- OUTSIDE RECORDS SUMMARY | 2024-03-31 23:29 | XMS_ITS | Encounter Summary ---
Author Organization [facility] Address [address] [place] [address] Care Team Providers Care Flea Market Seller Name Role Phone David Mays MD Primary Care Prov ider Reason for Visit * Reason Comments Medication Refill Encounter Details Date Type Department Care Team (Late st Contact Info) Description 07/11/[address] [address] David Mays MD [address] [place] [phone] GUSTAVO (generalized anxiety disorder); Insomnia, unspecified type [...] * Telephone Encounter - Saskia Parish - 07/11/2020 3:43 PM CDT Laurel Young Last refilled 06/11/20 Last appt 05/27/20 Next appt 12/09/20 documented in this encounter Plan of Treatment Not on file documented as of this encounter Visit Diagnoses Diagnosis GUSTAVO (generalized anxiety disorder) Generalized anxiety disorder Insomnia, unspecified type documented in this encounter Care Teams Flea Market Seller Relationship Specialty Start Date End Date David Mays MD PCP - General Family Practice 01/27/16 documented as of this encounter
--- OUTSIDE RECORDS SUMMARY | 2024-03-31 23:29 | XMS_ITS | Encounter Summary ---
Author Organization [facility] Address [address] [place] [address] Care Team Providers Care Mental Health Advanced Practice Nurse Name Role Phone David Mays MD Primary Care Prov ider Reason for Visit * Reason Comments Medication Refill Encounter Details Date Type Department Care Team (Late st Contact Info) Description 01/15/2019 Refill [facility] MEDICINE - [address] [address] Andre Mccabe MD [address] [place] [phone] Insomnia, unspecified type; GUSTAVO (generalized anxiety disorder) [...] Miscellaneous Notes * Telephone Encounter - Teresita Calix CMA - 01/15/2019 4:18 PM CDT 06/01/2019 TUAN 10/27/18 Last refill date: 12/15/18 documented in this encounter Plan of Treatment Not on file documented as of this encounter Visit Diagnoses Diagnosis Insomnia, unspecified type GUSTAVO (generalized anxiety disorder) Generalized anxiety disorder documented in this encounter Care Teams Mental Health Advanced Practice Nurse Relationship Specialty Start Date End Date Mays, Ma Rach Mereria, MD PCP - General Family Practice 01/27/16 documented as of this encounter
--- OUTSIDE RECORDS SUMMARY | 2024-03-31 23:29 | XMS_ITS | Encounter Summary ---
Author Organization [facility] Address [address] [place] [address] Care Team Providers Care Compressed Gas Tester Name Role Phone David Mays MD Primary Care Prov ider Reason for Visit * Reason Comments Medication Refill Encounter Details Date Type Department Care Team (Late st Contact Info) Description 02/15/2019 Refill [facility] - [address] [phone] David Mays MD [address] [place] [phone] GUSTAVO (generalized anxiety disorder); Insomnia, unspecified type [...] Telephone Encounter - Teresita Calix CMA - 02/15/2019 1:31 PM CAREER LAW CLERK NOV 06/01/2019 TUAN 10/27/18 Last refill date: 01/15/19 ER LAW CLERK documented in this encounter Plan of Treatment Not on file documented as of this encounter Visit Diagnoses Diagnosis GUSTAVO (generalized anxiety disorder) Generalized anxiety disorder Insomnia, unspecified type documented in this encounter Care Teams Compressed Gas Tester Relationship Specialty Start Date End Date David Mays MD PCP - General Family Practice 01/27/16 documented as of this encounter
--- OUTSIDE RECORDS SUMMARY | 2024-03-31 23:29 | XMS_ITS | Encounter Summary ---
Author Organization [facility] Address [address] [place] [address] Care Team Providers Care Business Process Analyst Name Role Phone David Mays MD Primary Care Prov ider Reason for Visit * Reason Onset Date Comments Medication Refill 04/21/2018 Encounter Details Date Type Department Care Team (Late st Contact Info) Description 04/21/2018 Refill [facility] MEDICINE [address] [address] David Mays MD [address] [place] [phone] Social History Tobacco Use Types Packs/Day Years [...] * Telephone Encounter - Kristel Cuadra - 04/21/2018 12:53 PM CST TUAN- 10/26/17 LRF- 04/08/18 NOV-04/28/18 Per pharmacy, dosage unavailable. Change to 1MG? Cut in half? MARSHAL documented in this encounter Plan of Treatment Not on file documented as of this encounter Visit Diagnoses Not on filedocumented in this encounter Care Teams Business Process Analyst Relationship Specialty Start Date End Date Mays, Ma Rach Mereria, MD PCP - General Family Practice 01/27/16 documented as of this encounter
--- OUTSIDE RECORDS SUMMARY | 2024-03-31 23:29 | XMS_ITS | Encounter Summary ---
Author Organization [facility] Address [address] [place] [address] Care Team Providers Care Quantitative Strategy Analyst Name Role Phone David Mays MD Primary Care Prov ider Reason for Visit * Reason Comments Medication Refill Encounter Details Date Type Department Care Team (Late st Contact Info) Description 06/07/[address] [address] David Mays MD [address] [place] [phone] Insomnia, unspecified type; GUSTAVO (generalized anxiety disorder) [...] have Coronavirus / COVID-19? No / Unsure 05/27/2020 8:[address] WORKER documented as of this encounter Miscellaneous Notes * Telephone Encounter - Saskia Parish - 06/09/2020 9:54 AM CST Hector Barragan Last RF 05/14/20 Last appt 05/27/20 Next appt 12/09/20 ET WORKER documented in this encounter Plan of Treatment Not on file documented as of this encounter Visit Diagnoses Diagnosis Insomnia, unspecified type GUSTAVO (generalized anxiety disorder) Generalized anxiety disorder documented in this encounter Care Teams Quantitative Strategy Analyst Relationship Specialty Start Date End Date David Mays MD PCP - General Family Practice 01/27/16 documented as of this encounter
--- OUTSIDE RECORDS SUMMARY | 2024-03-31 23:29 | XMS_ITS | Encounter Summary ---
Author Organization [facility] Address [address] [place] [address] Care Team Providers Care Field Horticultural Specialty Grower Name Role Phone David Mays MD Primary Care Prov ider Reason for Visit * Reason Comments Medication Refill Encounter Details Date Type Department Care Team (Late st Contact Info) Description 04/05/[address] [facility] MEDICINE [address] [address] David Mays MD [address] [place] [phone] Hypercholesterolemia Social History Tobacco Use Types Packs/Day [...] * Telephone Encounter - Linda Pineda - 04/08/2017 6:33 PM CST LM on pharmacy line for both. S FLOOR ASSOCIATE * Telephone Encounter - Linda Pineda - 04/05/2017 4:49 PM CST NOV 04/27/2017 TUAN 07/28/2016 Last fill 03/04/2017 ambien & clonazepam Lovastatin 07/28/2016 S FLOOR ASSOCIATE documented in this encounter Plan of Treatment Not on file documented as of this encounter Visit Diagnoses Diagnosis Hypercholesterolemia Pure hypercholesterolemia documented in this encounter Care Teams Field Horticultural Specialty Grower Relationship Specialty Start Date End Date David Mays MD PCP - General Family Practice 01/27/16 documented as of this encounter
--- OUTSIDE RECORDS SUMMARY | 2024-03-31 23:29 | XMS_ITS | Encounter Summary ---
Author Organization [facility] Address [address] [place] [address] Care Team Providers Care Vp Foundation Name Role Phone David Mays MD Primary Care Prov ider Reason for Visit * Reason Comments Medication Refill Encounter Details Date Type Department Care Team (Late st Contact Info) Description 06/09/2019 Refill [facility] MEDICINE - [address] [address] David Mays MD [address] [place] [phone] GUSTAVO (generalized anxiety disorder); Insomnia, unspecified type [...] Telephone Encounter - Teresita Calix CMA - 06/12/2019 1:34 PM CDT NOV 11/20/2019 TUAN 05/21/2019 Last refill date: 05/15/2019 documented in this encounter Plan of Treatment Not on file documented as of this encounter Visit Diagnoses Diagnosis GUSTAVO (generalized anxiety disorder) Generalized anxiety disorder Insomnia, unspecified type documented in this encounter Care Teams Vp Foundation Relationship Specialty Start Date End Date David Mays MD PCP - General Family Practice 01/27/16 documented as of this encounter
--- OUTSIDE RECORDS SUMMARY | 2024-03-31 23:29 | XMS_ITS | Encounter Summary ---
Author Organization [facility] Address [address] [place] [address] Care Team Providers Care Manager Technical Services Name Role Phone David Mays MD Primary Care Prov ider Reason for Visit * Reason Comments Medication Refill Encounter Details Date Type Department Care Team (Late st Contact Info) Description 09/17/2016 Refill [facility] MEDICINE [address] [address] David Mays MD [address] [place] [phone] Social History Tobacco Use Types Packs/Day Years [...] * Telephone Encounter - Linda Pineda - 09/17/2016 6:55 PM CDT LM on pharmacy line for both * Telephone Encounter - Teresita Farley CMA - 09/17/2016 4:36 PM CDT Last RFL 08/18/16 TUAN 07/28/16 NOV 04/27/17 documented in this encounter Plan of Treatment Not on file documented as of this encounter Visit Diagnoses Not on filedocumented in this encounter Care Teams Manager Technical Services Relationship Specialty Start Date End Date David Mays MD PCP - General Family Practice 01/27/16 documented as of this encounter
--- OUTSIDE RECORDS SUMMARY | 2024-03-31 23:29 | XMS_ITS | Encounter Summary ---
Author Organization [facility] Address [address] [place] [address] Care Team Providers Care Tool Shaper Setup Operator Name Role Phone David Mays MD Primary Care Prov ider Reason for Visit * Reason Comments Medication Refill Encounter Details Date Type Department Care Team (Late st Contact Info) Description 10/07/2017 Refill [facility] - [address] [address] David Mays MD [address] [place] [phone] Social History Tobacco Use Types Packs/Day Years [...] Telephone Encounter - Teresita Farley CMA - 10/07/2017 10:18 AM CDT Last RFL 09/08/17 TUAN 04/27/17 NOV 10/26/17 documented in this encounter Plan of Treatment Not on file documented as of this encounter Visit Diagnoses Not on filedocumented in this encounter Care Teams Tool Shaper Setup Operator Relationship Specialty Start Date End Date David Mays MD PCP - General Family Practice 01/27/16 documented as of this encounter
--- OUTSIDE RECORDS SUMMARY | 2024-03-31 23:29 | XMS_ITS | Encounter Summary ---
Author Organization [facility] Address [address] [place] [address] Care Team Providers Care Supervising Nurse Name Role Phone David Mays MD Primary Care Prov ider Reason for Visit * Reason Comments Depression Insomnia Follow Up Encounter Details Date Type Department Care Team (Late st Contact Info) Description 10/27/2018 3:40 PM CDT Office Visit [facility] MED[facility]INE [address] [address] David Mays MD [address] [place] [phone] Essential hypertension (Primary Dx); Hypercholesterolemia; GUSTAVO (generalized anxiety disorder); Insomnia, unspecified type; Malaise and fatigue Social History Tobacco Use [...] Sign Reading Time Taken Comments Blood Pressure 115/71 10/27/2018 3:30 PM CDT Pulse 67 10/27/2018 3:30 PM CDT Temperature - - Respiratory Rate 15 10/27/2018 3:30 PM CDT Oxygen Saturation - - Inhaled Oxygen Concentration - - Weight 60.1 kg (132 lb 8 oz) 10/27/2018 3:30 PM CDT Height 162.6 cm (5' 4 ) 10/27/2018 3:30 PM CDT Body Mass Index 22.74 10/27/2018 3:30 PM CDT documented in this encounter Progress Notes * David Mays MD - 10/27/2018 3:55 PM CDT HISTORY OF PRESENT ILLNESS Krys Cook, a 62 y.o. female presents with a Chief Complaint of Depression; Insomnia; and FollowUp Subjective HPI Chief Complaint Patient presents with ??? Depression ??? Insomnia ??? Follow Up Doing better. Working with friend. Rehab the house. On celexa. Klonopin. And ambien. Staying at her own apartment. Smoking. The same No plans to quit at this time. No alcohol last intake end of last year. Lab Results Component Value Date/Time ALT 73 (H) 04/21/2018 04:40 AM AST 47 (H) 04/21/2018 04:40 AM ALKPHOS 151 (H) 04/21/2018 04:40 AM Known history of Hypertension. She is taking medications as instructed, no side effects of medications, no chest pain on exertion, no dyspnea on exertion, no edema , patient does perform home BP monitoring, sara range. She is following low salt diet and exercise. Hx hld. Lipitor. Stable. Improved diet and more active. Lab Results Component Value Date/Time ?? CHOLTOT 187 04/21/2018 04:40 AM ?? HDL 52 04/21/2018 04:40 AM ?? LDLCALC 113 (H) 04/21/2018 04:40 AM ?? TRIGLYCERIDE 109 04/21/2018 04:40 AM ?? Smoking - not ready to quit. Has history of Depression, anxiety , and insomnia. Currently on celexa, klonopin, and ambien. Tolerating medication. Denies side effect. Mood has improved. No crying spells, mood swing and insomnia. Denies suicidal and homicidal ideation. Patient Active Problem List Diagnosis Code ??? Depression F32.9 ??? Hypercholesterolemia E78.00 ??? Hypertension I10 ??? Adiposity E66.9 ??? Tobacco use Z72.0 Allergy and medication list reviewed and updated. Social History Tobacco Use Smoking Status Current Every Day Smoker ??? Packs/day: 0.20 ??? Types: Cigarettes Tobacco Comment 3-4 cigarettes daily Chief Complaint/HPI: Here for a follow up office visit regarding the medical problems noted or bolded above and specifically noted in the assessment and plan section of this office note. Has additional concerns: see above. REVIEW OF SYSTEMS Review of Systems Constitutional: [...] and sleep disturbance. Objective PHYSICAL EXAM BP 115/71 Pulse 67 Resp 15 Ht 5' 4 (1.626 m) Wt 60.1 kg (132 lb 8 oz) ? No BMI 22.74 kg/m?? Physical Exam Constitutional: She appears well-developed. [...] Items Addressed This Visit Complex Diagnosis Hypercholesterolemia Continue current medication, low cholesterol diet, and regular exercise Relevant Orders COMPREHENSIVE METABOLIC PANEL Hypertension - Primary stable. Continue current medication, low salt diet and regular exercise. Encourage blood pressure monitoring at home. Relevant Orders COMPREHENSIVE METABOLIC PANEL Other Visit Diagnoses GUSTAVO (generalized anxiety disorder) Stable. Advised coping management skills like relaxation, exercise, counseling.Call or return to clinic prn if these symptoms worsen or fail to improve as anticipated. Insomnia, unspecified type On ambien. Sleep hygiene advised. Malaise and fatigue Patient advise to increase activity with regular excercise Relevant Orders CBC WITH DIFFERENTIAL TSH REFLEXIVE TOBACCO COUNSELING She was counseled to discontinue tobacco use. documented in this encounter Plan of Treatment Not on file documented as of this encounter Visit Diagnoses Diagnosis Essential hypertension- Primary Unspecified essential hypertension Hypercholesterolemia Pure hypercholesterolemia GUSTAVO (generalized anxiety disorder) Generalized anxiety disorder Insomnia, unspecified type Malaise and fatigue Other malaise and fatigue documented in this encounter Care Teams Supervising Nurse Relationship Specialty Start Date End Date David Mays MD PCP - General Family Practice 01/27/16 documented as of this encounter
--- OUTSIDE RECORDS SUMMARY | 2024-03-31 23:29 | XMS_ITS | Encounter Summary ---
Author Organization [facility] Address [address] [place] [address] Care Team Providers Care Rail Express Clerk Name Role Phone David Mays MD Primary Care Prov ider Reason for Visit * Reason Comments Medication Refill Encounter Details Date Type Department Care Team (Late st Contact Info) Description 01/26/2017 Refill [facility] MED[facility]INE [address] [address] David Mays MD [address] [place] [phone] Social History Tobacco Use Types Packs/Day Years [...] * Telephone Encounter - Linda Pineda - 01/28/2017 7:21 PM CDT LM on pharmacy line. * Telephone Encounter - Linda Pineda - 01/28/2017 1:03 PM CDT NOV 04/27/2017 TUAN 07/28/2016 Last fill 11/23/2016 documented in this encounter Plan of Treatment Not on file documented as of this encounter Visit Diagnoses Not on filedocumented in this encounter Care Teams Rail Express Clerk Relationship Specialty Start Date End Date David Mays MD PCP - General Family Practice 01/27/16 documented as of this encounter
--- OUTSIDE RECORDS SUMMARY | 2024-03-31 23:29 | XMS_ITS | Encounter Summary ---
Author Organization [facility] Address [address] [place] [address] Care Team Providers Care Engraver Seals Name Role Phone David Mays MD Primary Care Prov ider Reason for Visit * Reason Comments Medication Refill Encounter Details Date Type Department Care Team (Late st Contact Info) Description 10/07/2020 Refill [facility] MEDICINE - [address] [address] David Mays MD [address] [place] [phone] GUSTAVO (generalized anxiety disorder); Insomnia, unspecified type [...] * Telephone Encounter - Iva Lopez - 10/07/2020 4:45 PM CDT Medication name: ambien Last RF: 09/08/20 # Dispensed/Refills: 30 Medication name: klonopin Last RF: 09/08/20 # Dispensed/Refills: 15 Last appt: 05/27/20 Next appt: 12/09/20 documented in this encounter Plan of Treatment Not on file documented as of this encounter Visit Diagnoses Diagnosis GUSTAVO (generalized anxiety disorder) Generalized anxiety disorder Insomnia, unspecified type documented in this encounter Care Teams Engraver Seals Relationship Specialty Start Date End Date David Mays MD PCP - General Family Practice 01/27/16 documented as of this encounter
--- OUTSIDE RECORDS SUMMARY | 2024-03-31 23:29 | XMS_ITS | Encounter Summary ---
Author Organization [facility] Address [address] [place] [address] Care Team Providers Care Wire Brush Maker Name Role Phone David Mays MD Primary Care Prov ider Reason for Visit * Reason Comments Medication Refill Encounter Details Date Type Department Care Team (Late st Contact Info) Description 06/07/2018 Refill [facility] MEDICINE [address] [address] David Mays MD [address] [place] [phone] Social History Tobacco Use Types Packs/Day Years [...] Telephone Encounter - Teresita Farley CMA - 06/07/2018 11:34 AM MINE ENGINEERING SUPERINTENDENT 10/27/2018 TUAN 04/28/18 Last refill date: 05/11/18 ENGINEERING SUPERINTENDENT documented in this encounter Plan of Treatment Not on file documented as of this encounter Visit Diagnoses Not on filedocumented in this encounter Care Teams Wire Brush Maker Relationship Specialty Start Date End Date David Mays MD PCP - General Family Practice 01/27/16 documented as of this encounter
--- OUTSIDE RECORDS SUMMARY | 2024-03-31 23:29 | XMS_ITS | Encounter Summary ---
Author Organization [facility] Address [address] [place] [address] Care Team Providers Care Patient Scheduling Manager Name Role Phone David Mays MD Primary Care Prov ider Reason for Visit * Reason Comments Medication Refill Encounter Details Date Type Department Care Team (Late st Contact Info) Description 01/06/2018 Refill [facility] MEDICINE [address] [address] David Mays MD [address] [place] [phone] Social History Tobacco Use Types Packs/Day Years [...] Telephone Encounter - Teresita Farley CMA - 01/06/2018 1:38 PM CDT Rx phoned in. * Telephone Encounter - Andre Mccabe MD - 01/06/2018 12:37 PM CDT Rx signed for clonazepam and zolpidem * Telephone Encounter - Marah Guillen - 01/06/2018 10:23 AM CDT TUAN :10/26/17 NOV :04/28/18 REF :12/07/17 PHARMACY:[email or web address] documented in this encounter Plan of Treatment Not on file documented as of this encounter Visit Diagnoses Not on filedocumented in this encounter Care Teams Patient Scheduling Manager Relationship Specialty Start Date End Date David Mays MD PCP - General Family Practice 01/27/16 documented as of this encounter
--- OUTSIDE RECORDS SUMMARY | 2024-03-31 23:29 | XMS_ITS | Encounter Summary ---
Author Organization [facility] Address [address] [place] [address] Care Team Providers Care Wharf Hand Name Role Phone David Mays MD Primary Care Prov ider Reason for Visit * Reason Comments Medication Refill Encounter Details Date Type Department Care Team (Late st Contact Info) Description 12/20/[address] [address] David Mays MD [address] [place] [phone] Insomnia, unspecified type; GUSTAVO (generalized anxiety disorder) [...] PM CDT documented as of this encounter Miscellaneous Notes * Telephone Encounter - Saskia Parish - 12/21/2019 3:17 PM CDT Hector Barragan Both last refilled 11/20/19 Last appt 11/20/19 Next appt 05/27/20 documented in this encounter Plan of Treatment Not on file documented as of this encounter Visit Diagnoses Diagnosis Insomnia, unspecified type GUSTAVO (generalized anxiety disorder) Generalized anxiety disorder documented in this encounter Care Teams Wharf Hand Relationship Specialty Start Date End Date David Mays MD PCP - General Family Practice 01/27/16 documented as of this encounter
--- OUTSIDE RECORDS SUMMARY | 2024-03-31 23:29 | XMS_ITS | Encounter Summary ---
Author Organization [facility] Address [address] [place] [address] Care Team Providers Care Cdl Instructor Name Role Phone David Mays MD Primary Care Prov ider Reason for Visit * Reason Onset Date Comments Medication Refill 08/09/2018 Encounter Details Date Type Department Care Team (Late st Contact Info) Description 08/09/2018 Refill [facility] MED[facility]INE [address] [address] David Mays MD [address] [place] [phone] Insomnia, unspecified type (Primary Dx); Hypercholesterolemia; GUSTAVO (generalized anxiety disorder); Essential hypertension Social History Tobacco Use Types [...] encounter Miscellaneous Notes * Telephone Encounter - Kala Causey H - 08/09/2018 3:00 PM CDT Pt has moved, asking for refills be sent to new pharmacy. Please advise. TUAN: 04/28/2018 NOV: 10/27/2018 RFL: clonazepam 07/21/18, zolpidem 07/10/18, lisinopril 05/29/18, citalopram 04/07/2018, atorvastatin 03/09/18 Pharmacy: [facility] documented in this encounter Plan of Treatment Not on file documented as of this encounter Visit Diagnoses Diagnosis Insomnia, unspecified type- Primary Hypercholesterolemia Pure hypercholesterolemia GUSTAVO (generalized anxiety disorder) Generalized anxiety disorder Essential hypertension Unspecified essential hypertension documented in this encounter Care Teams Cdl Instructor Relationship Specialty Start Date End Date David Mays MD PCP - General Family Practice 01/27/16 documented as of this encounter
--- OUTSIDE RECORDS SUMMARY | 2024-03-31 23:29 | XMS_ITS | Encounter Summary ---
Author Organization [facility] Address [address] [place] [address] Care Team Providers Care Scrummaster Name Role Phone David Mays MD Primary Care Prov ider Reason for Visit * Reason Comments Medication Refill Encounter Details Date Type Department Care Team (Late st Contact Info) Description 10/11/2018 Refill [facility] - [address] [address] David Mays MD [address] [place] [phone] Insomnia, unspecified type Social History Tobacco Use [...] * Telephone Encounter - Saskia Villalobos - 10/11/2018 10:29 AM CDT ZOLPIDEM TARTRATE 5 MG TAB 5 TAB Last RFL 09/12/18 TUAN 04/28/18 NOV 10/27/18 documented in this encounter Plan of Treatment Not on file documented as of this encounter Visit Diagnoses Diagnosis Insomnia, unspecified type documented in this encounter Care Teams Scrummaster Relationship Specialty Start Date End Date MaysDavid marino MD PCP - General Family Practice 01/27/16 documented as of this encounter
--- OUTSIDE RECORDS SUMMARY | 2024-03-31 23:29 | XMS_ITS | Encounter Summary ---
Author Organization [facility] Address [address] [place]: Epic Prelude ADT [place] [address] Care Team Providers Care Burglar Alarm Assembler Name Role Phone David Mays MD Primary Care Prov ider Encounter Details Date Type Department Care Team (Latest Contact Info) Description 05/27/2020 Travel Social History Tobacco Use Types Packs/Day [...] COVID-19? No / Unsure 05/27/2020 8:58 AM TAX COMPLIANCE MANAGER documented as of this encounter Plan of Treatment Not on file documented as of this encounter Visit Diagnoses Not on filedocumented in this encounter Care Teams Burglar Alarm Assembler Relationship Specialty Start Date End Date David Mays MD PCP - General Family Practice 01/27/16 documented as of this encounter
--- OUTSIDE RECORDS SUMMARY | 2024-03-31 23:29 | XMS_ITS | Encounter Summary ---
Author Organization [facility] Address [address] [place] [address] Care Team Providers Care Slab Stripper Name Role Phone David Mays MD Primary Care Prov ider Reason for Visit * Reason Onset Date Comments Medication Refill 01/31/2017 Encounter Details Date Type Department Care Team (Late st Contact Info) Description 01/31/2017 Refill [facility] MED[facility]INE [address] [address] David Mays MD [address] [place] [phone] Social History Tobacco Use Types Packs/Day Years [...] * Telephone Encounter - Linda Pineda - 01/31/2017 7:45 PM CDT LM on pharmacy line. * Telephone Encounter - Linda Pineda - 01/31/2017 4:50 PM CDT NOV 04/27/2017 TUNA 07/28/2016 Last fill 12/27/2016 documented in this encounter Plan of Treatment Not on file documented as of this encounter Visit Diagnoses Not on filedocumented in this encounter Care Teams Slab Stripper Relationship Specialty Start Date End Date David Mays MD PCP - General Family Practice 01/27/16 documented as of this encounter
--- OUTSIDE RECORDS SUMMARY | 2024-03-31 23:29 | XMS_ITS | Encounter Summary ---
Author Organization [facility] Address [address] [place] [address] Care Team Providers Care Frickertron Checker Name Role Phone David Mays MD Primary Care Prov ider Reason for Visit * Reason Comments Medication Refill Encounter Details Date Type Department Care Team (Late st Contact Info) Description 09/08/2020 Refill [facility] MEDICINE - [address] [address] Andre Mccabe MD [address] [place] [phone] GUSTAVO (generalized anxiety disorder); Insomnia, unspecified type [...] * Telephone Encounter - Iva Lopez - 09/08/2020 4:46 PM CDT Medication name: ambien Last RF: 08/08/20 # Dispensed/Refills: 30 Medication name: klonopin Last RF: 08/08/20 # Dispensed/Refills: 15 Last appt: 05/27/20 Next appt: 12/09/20 documented in this encounter Plan of Treatment Not on file documented as of this encounter Visit Diagnoses Diagnosis GUSTAVO (generalized anxiety disorder) Generalized anxiety disorder Insomnia, unspecified type documented in this encounter Care Teams Frickertron Checker Relationship Specialty Start Date End Date David Mays MD PCP - General Family Practice 01/27/16 documented as of this encounter
--- OUTSIDE RECORDS SUMMARY | 2024-03-31 23:29 | XMS_ITS | Encounter Summary ---
Author Organization [facility] Address [address] [place] [address] Care Team Providers Care It Service Continuity Supervisor Name Role Phone David Mays MD Primary Care Prov ider Reason for Visit * Reason Onset Date Comments Erroneous encounter-disregard 04/18/2018 Encounter Details Date Type Department Care Team (Late st Contact Info) Description 04/18/2018 Telephone [facility] MEDICINE [address] [address] David Mays MD [address] [place] [phone] Erroneous encounter-disregard Social History Tobacco Use Types Packs/Day Years [...] on filedocumented in this encounter Care Teams It Service Continuity Supervisor Relationship Specialty Start Date End Date David Mays MD PCP - General Family Practice 01/27/16 documented as of this encounter
--- OUTSIDE RECORDS SUMMARY | 2024-03-31 23:29 | XMS_ITS | Encounter Summary ---
Author Organization [facility] Address [address] [place] [address] Care Team Providers Care Package Line Operator Name Role Phone David Mays MD Primary Care Prov ider Reason for Visit * Reason Onset Date Comments Needs Orders Written 04/06/2017 Encounter Details Date Type Department Care Team (Late st Contact Info) Description 04/06/2017 Telephone [facility] MEDIC[facility] [address] [address] David Mays MD [address] [place] [id number] Needs Orders Written Social History Tobacco Use Types Packs/Day Years [...] encounter Miscellaneous Notes * Telephone Encounter - Marjorie Vieyra FNP - 04/15/2017 4:44 PM CST LM that labs were put in mail today [facility]RIAL * Telephone Encounter - Marjorie Vieyra FNP - 04/15/2017 2:57 PM CST Please let pt know labs are ordered and will be placed in the mail. T [employer]AL * Telephone Encounter - Linda Pineda - 04/06/2017 12:46 PM CST Pt scheduled 04/27/2017, asking if you want labs done prior and if so, would like orders mailed to her home address, goes to [employer]. [employer]RIAL documented in this encounter Plan of Treatment Not on file documented as of this encounter Procedures Procedure Name Priority Date/Time Associated Diagnosis Comments LIPID PANEL Routine 11/13/2019 11:50 AM CDT TSH REFLEXIVE Routine 05/16/2019 8:34 AM LIGHT INDUSTRIAL CBC WITH DIFFERENTIAL Routine 05/16/2019 8:34 AM LIGHT INDUSTRIAL COMPREHENSIVE METABOLIC PANEL Routine 05/16/2019 8:34 AM [facility] [employer]RIAL HEPATITIS B SURFACE ANTIGEN Routine 04/21/2018 4:40 AM LIGHT INDUSTRIAL HEPATIC FUNCTION PANEL Routine 9 4:40 AM LIGHT INDUSTRIAL LIPID PANEL Routine 04/21/2018 4:40 AM LIGHT INDUSTRIAL COMPREHENSIVE METABOLIC PANEL Routine 10/20/2017 11:57 AM CDT TSH REFLEXIVE Routine 04/22/2017 4:48 AM LIGHT INDUSTRIAL Normal routine physical examination CBC WITH DIFFERENTIAL Routine 04/22/2017 4:48 AM LIGHT INDUSTRIAL Essential hypertension Normal routine physical examination LIPID PANEL Routine 04/22/2017 4:48 AM LIGHT INDUSTRIAL Hypercholesterolemi a Normal routine physical examination COMPREHENSIVE METABOLIC PANEL Routine 04/22/2017 4:48 AM LIGHT INDUSTRIAL Normal routine physical examination documented in this encounter Results * LIPID PANEL (11/13/2019 11:50 AM CDT) [facility] CHOLESTEROL 151 <200 mg/dL [facility] HDL 52 > OR = 50 mg/dL [facility] TRIGLYCERIDE 144 <150 mg/dL [facility] LDL CALCULATED 76 mg/dL (calc) [facility] Comment: Reference range: <100 Desirable range <100 mg/dL for primary prevention; ?? <70 mg/dL for patients with CHD or diabetic patients with > or = 2 CHD risk factors. LDL-C is now calculated using the Sherry calculation, which is a validated novel method providing better accuracy than the Friedewald equation in the estimation of LDL-C. Shemar SS et al. ZAY. 2013;310(21): 4607-4009 (http://education.Sekoia/faq/WQP889) CHOL/HDL RATIO 2.9 <5.0 (calc) [facility] TOTAL NON-HDL CHOL(LDL+VLDL) 99 <130 mg/dL (calc) [facility] Comment: For patients with diabetes plus 1 major ASCVD risk factor, treating to a non-HDL-C goal of <100 mg/dL (LDL-C of <70 mg/dL) is considered a therapeutic option. Test Performed at: [facility] [id number] [place] [address] ??[phone] Miguel Angel Zavala D.O., MPH 11/13/2019 11:5 0 AM CDT David Mays MD CHEMISTRY ORDERABLES [facility] [address] [place] [address] * CBC WITH DIFFERENTIAL (05/16/2019 8:34 AM LIGHT INDUSTRIAL) [facility] WBC 9.4 3.8 - 10.8 Thousand/u L [facility] RBC 3.98 3.80 - 5.10 Million/uL [facility] HEMOGLOBIN 12.6 11.7 - 15.5 g/dL [facility] HEMATOCRIT 38.3 35.0 - 45.0 % [facility] MCV 96.2 80.0 - 100.[address] [facility] MCH 31.7 27.0 - 33.[address] [facility] MCHC 32.9 32.0 - 36.0 g/dL [facility] RDW 12.7 11.0 - 15.0 % [facility] PLATELETS 195 140 - 400 Thousand/u L [facility] MPV 12.5 7.5 - 12.5 fL [facility] NEUTROPHIL ABSOLUTE 4,944 1,500 - 7,800 cells/uL [facility] LYMPHOCYTE ABSOLUTE 3,506 850 - 3,900 cells/uL [facility] MONOCYTE ABSOLUTE 583 200 - 950 cells/uL [facility] EOSINOPHIL ABSOLUTE 301 15 - 500 cells/uL [facility] BASOPHILS ABSOLUTE 66 0 - 200 cells/uL [facility] NEUTROPHIL 52.6 % [facility] LYMPHOCYTES 37.3 % [facility] MONOCYTE 6.2 % [facility] EOSINOPHILS 3.2 % [facility] BASOPHILS 0.7 % [facility] Comment: Test Performed at: [facility] [address] [place], [place] ??[phone] Miguel Angel Zavala D.O., MPH 05/16/2019 8:34 AM LIGHT INDUSTRIAL David Mays MD HEMATOLOGY ORDERABLES Performing Organization Address City/[facility] Co de Phone Number [employer] [facility] [address] [place] [address] * TSH REFLEXIVE (05/16/2019 8:34 AM LIGHT INDUSTRIAL) TSH, ULTRASENSITIVE 1.96 0.40 - 4.50 mIU/L [facility]NOST[facility] Comment: Test Performed at: [facility] [address] [place] ??[phone] Miguel Angel Zavala D.O., MPH 05/16/2019 8:3 4 AM LIGHT INDUSTRIAL David Mays MD CHEMISTRY ORDERABLES Performing Organization Address City/[facility]/ZIP Co de Phone Number [address] [place] [address] * (ABNORMAL) COMPREHENSIVE METABOLIC PANEL (05/16/2019 8:34 AM LIGHT INDUSTRIAL) GLUCOSE 79 65 - 99 mg/dL [facility] Comment:Fasting reference in terval BUN 5(L) 7 - 25 mg/dL [facility] CREATININE 0.83 0.50 - 0.99 mg/dL [facility] Comment: For patients >49 years of age, the reference limit for Creatinine is approximately 13% higher for people identified as -[place]. GFR 75 > OR = 60 mL/min/1. 73m2 [facility] GFR, 87 > OR = 60 mL/min/1. 73m2 [facility] BUN/CREAT RATIO 6 6 - 22 (calc) [facility] SODIUM 141 135 - 146 mmol/L [facility] POTASSIUM 3.4(L) 3.5 - 5.3 mmol/L [facility] CHLORIDE 100 98 - 110 mmol/L [facility] CO2 33(H) 20 - 32 mmol/L [facility] CALCIUM 9.0 8.6 - 10.4 mg/dL [facility] TOTAL PROTEIN 6.1 6.1 - 8.1 g/dL [facility] ALBUMIN 3.9 3.6 - 5.1 g/dL [facility] GLOBULIN 2.2 1.9 - 3.7 g/dL (calc) [facility] ALBUMIN/GLOBULIN RATIO 1.8 1.0 - 2.5 (calc) [facility] BILIRUBIN TOTAL 0.5 0.2 - 1.2 mg/dL [facility] ALKALINE PHOSPHATASE 89 37 - 153 U/L [facility] AST 17 10 - 35 U/L [facility] ALT 21 6 - 29 U/L [facility] Comment: Test Performed at: [facility] [address] ??[phone] Miguel Angel Zavala D.O., MPH 05/16/2019 8:34 AM LIGHT INDUSTRIAL David Mays MD CHEMISTRY ORDERABLES Performing Organization Address City/State/[facility] Co de Phone Number [facility] [address] [place] [address] * HEPATITIS B SURFACE ANTIGEN (04/21/2018 4:40 AM LIGHT INDUSTRIAL) [facility] HEPATITIS B SURFACE AG NON-REACTI VE NON-REACT JESSI [facility] Comment: FASTING:YES FASTING: YES Test Performed at: [address] ??[phone] Miguel Angel Zavala D.O., MPH 04/21/2018 4:40 AM LIGHT INDUSTRIAL David Mays MD CHEMISTRY ORDERABLES Performing Organization Address [facility] de Phone Number [facility] [address] [place] [address] * (ABNORMAL) HEPATIC FUNCTION PANEL (04/21/2018 4:40 AM LIGHT INDUSTRIAL) [facility] TOTAL PROTEIN 7.0 6.1 - 8.1 g/dL [facility] ALBUMIN 4.4 3.6 - 5.1 g/dL [facility] GLOBULIN 2.6 1.9 - 3.7 g/dL (calc) [facility] ALBUMIN/GLOBULIN RATIO 1.7 1.0 - 2.5 (calc) [facility] BILIRUBIN TOTAL 0.5 0.2 - 1.2 mg/dL [facility] BILIRUBIN DIRECT 0.1 < OR = 0.2 mg/dL [facility] BILIRUBIN INDIRECT 0.4 0.2 - 1.2 mg/dL (calc) [facility] ALKALINE PHOSPHATASE 151(H) 33 - 130 U/L [facility] AST 47(H) 10 - 35 U/L [facility] ALT 73(H) 6 - 29 U/L [facility] Comment: Test Performed at: [facility] ??[phone] Miguel Angel Zavala D.O., MPH 04/21/2018 4:40 AM LIGHT INDUSTRIAL David Mays MD CHEMISTRY ORDERABLES Performing Organization Address [facility]/ZIP Co de Phone Number [employer] [facility] [address] [place] [address] * (ABNORMAL) LIPID PANEL (04/21/2018 4:40 AM LIGHT INDUSTRIAL) [facility] CHOLESTEROL 187 <200 mg/dL [facility] HDL 52 >50 mg/dL [facility] TRIGLYCERIDE 109 <150 mg/dL [facility] LDL CALCULATED 113(H) mg/dL (calc) [facility] Comment: Reference range: <100 Desirable range <100 mg/dL for primary prevention; ?? <70 mg/dL for patients with CHD or diabetic patients with > or = 2 CHD risk factors. LDL-C is now calculated using the Sherry calculation, which is a validated novel method providing better accuracy than the Friedewald equation in the estimation of LDL-C. Shemar LEUNG et al. ZAY. 2013;310(19): 9438-6981 (http://education.Sekoia/faq/OEN722) CHOL/HDL RATIO 3.6 <5.0 (calc) [facility] TOTAL NON-HDL CHOL(LDL+VLDL) 135(H) <130 mg/dL (calc) [facility] Comment: For patients with diabetes plus 1 major ASCVD risk factor, treating to a non-HDL-C goal of <100 mg/dL (LDL-C of <70 mg/dL) is considered a therapeutic option. Test Performed at: [facility] ??[phone] Miguel Angel Zavala D.O., MPH 04/21/2018 4:40 AM LIGHT INDUSTRIAL David Mays MD CHEMISTRY ORDERABLES Performing Organization Address [facility] Co de Phone Number [facility] [address] [place] [address] * (ABNORMAL) COMPREHENSIVE METABOLIC PANEL (10/20/2017 11:57 AM CDT) [facility] GLUCOSE 94 65 - 99 mg/dL [facility] Comment:Fasting reference in terval BUN 5(L) 7 - 25 mg/dL [facility] CREATININE 0.80 0.50 - 0.99 mg/dL [facility] Comment: For patients >49 years of age, the reference limit for Creatinine is approximately 13% higher for people identified as -[place]. GFR 80 > OR = 60 mL/min/1. 73m2 [facility] GFR, 92 > OR = 60 mL/min/1. 73m2 [facility] BUN/CREAT RATIO 6 6 - 22 (calc) [facility] [employer] [facility] SODIUM 144 135 - 146 mmol/L [facility] POTASSIUM 3.9 3.5 - 5.3 mmol/L [facility] [employer] [facility] CHLORIDE 103 98 - 110 mmol/L [facility] [employer] [facility] CO2 35(H) 20 - 31 mmol/L [facility] [employer] [facility] CALCIUM 9.7 8.6 - 10.4 mg/dL [facility] [employer] [facility] TOTAL PROTEIN 6.7 6.1 - 8.1 g/dL [facility] ALBUMIN 4.0 3.6 - 5.1 g/dL [facility] [employer] [facility] GLOBULIN 2.7 1.9 - 3.7 g/dL (calc) [facility] ALBUMIN/GLOBULIN RATIO 1.5 1.0 - 2.5 (calc) [facility] [employer] [facility] BILIRUBIN TOTAL 0.6 0.2 - 1.2 mg/dL [facility] [employer] [facility] ALKALINE PHOSPHATASE 227(H) 33 - 130 U/L [facility] AST 28 10 - 35 U/L [facility] ALT 62(H) 6 - 29 U/L [facility] [employer] [facility] Comment: Test Performed at: [facility] [address] [place] ??[phone] Miguel Angel Zavala D.O., MPH 10/20/2017 11:5 7 AM CDT Historical Provider CHEMISTRY ORDERABLES [employer] [facility] [address] [place] [address] * (ABNORMAL) COMPREHENSIVE METABOLIC PANEL (04/22/2017 4:48 AM LIGHT INDUSTRIAL) GLUCOSE 96 65 - 99 mg/dL [facility] Comment:Fasting reference in terval BUN 8 7 - 25 mg/dL [employer] [facility] CREATININE 0.98 0.50 - 0.99 mg/dL [facility] [employer] [facility] Comment: For patients >49 years of age, the reference limit for Creatinine is approximately 13% higher for people identified as -[place]. GFR 62 > OR = 60 mL/min/1 .73m2 [facility] DIAGNOSTICS [facility] GFR, 72 > OR = 60 mL/min/1 .73m2 [facility] BUN/CREAT RATIO NOT APPLICABLE 6 - 22 (calc) [facility] SODIUM 146 135 - 146 mmol/L [facility] POTASSIUM 3.7 3.5 - 5.3 mmol/L [facility] [employer] [facility] CHLORIDE 99 98 - 110 mmol/L [employer] [facility] CO2 34(H) 20 - 31 mmol/L [facility] [employer] [facility] CALCIUM 10.0 8.6 - 10.4 mg/dL [facility] [employer] . [facility] TOTAL PROTEIN 7.0 6.1 - 8.1 g/dL [facility] ALBUMIN 4.2 3.6 - 5.1 g/dL [facility] [employer] [facility] GLOBULIN 2.8 1.9 - 3.7 g/dL (calc) [facility] ALBUMIN/GLOBULIN RATIO 1.5 1.0 - 2.5 (calc) [facility] [employer] [facility] BILIRUBIN TOTAL 0.5 0.2 - 1.2 mg/dL [facility] [employer] [facility] ALKALINE PHOSPHATASE 86 33 - 130 U/L [facility] AST 14 10 - 35 U/L [facility] ALT 10 6 - 29 U/L [employer] [facility] Comment: Test Performed at: [facility] [address] [place] ??[phone] Miguel Angel Zavala D.O., MPH Blood 04/22/2017 4:48 AM LIGHT IND[employer]RIAL Marjorie MCCLENDON CHEMISTRY ORDERABLES [employer] [facility] [address] [place] [address] * (ABNORMAL) LIPID PANEL (04/22/2017 4:48 AM LIGHT INDUSTRIAL) CHOLESTEROL 239(H) <200 mg/dL [facility] HDL 45(L) >50 mg/dL [facility] TRIGLYCERIDE 156(H) <150 mg/dL [facility] LDL CALCULATED 164(H) mg/dL (calc) [facility] Comment: Reference range: <100 Desirable range <100 mg/dL for patients with CHD or diabetes and <70 mg/dL for diabetic patients with known heart disease. LDL-C is now calculated using the Sherry calculation, which is a validated novel method providing better accuracy than the Friedewald equation in the estimation of LDL-C. Shemar LEUNG et al. ZAY. 2013;310(19): 3157-5438 (http://education.Sekoia/faq/UXX208) CHOL/HDL RATIO 5.3(H) <5.0 (calc) [facility] TOTAL NON-HDL CHOL(LDL+VLDL) 194(H) <130 mg/dL (calc) [facility] Comment: For patients with diabetes plus 1 major ASCVD risk factor, treating to a non-HDL-C goal of <100 mg/dL (LDL-C of <70 mg/dL) is considered a therapeutic option. Test Performed at: [facility] [address] [place] ??[address] Miguel Angel Zavala D.O., MPH Blood 04/22/2017 4:48 AM LIGHT INDUSTRIAL Marjorie MCCLENDON CHEMISTRY ORDERABLES Performing Organization Address [facility] de Phone Number [facility] [address] [place] [address] * TSH REFLEXIVE (04/22/2017 4:48 AM LIGHT INDUSTRIAL) TSH, ULTRASENSITIVE 2.18 0.40 - 4.50 mIU/L [facility] Comment: Test Performed at: [place] ??[phone] Miguel Angel Zavala D.O., MPH Blood 04/22/2017 4:48 AM LIGHT INDUSTRIAL Marjorie MCCLENDON CHEMISTRY ORDERABLES Performing Organization Address [facility]/ZIP Co de Phone Number [facility] [address] [place] [address] * (ABNORMAL) CBC WITH DIFFERENTIAL (04/22/2017 4:48 AM LIGHT INDUSTRIAL) WBC 12.2(H) 3.8 - 10.8 Thousand/ uL [facility] RBC 4.43 3.80 - 5.10 Million/u L [facility] HEMOGLOBIN 14.0 11.7 - 15.5 g/dL [facility] HEMATOCRIT 40.6 35.0 - 45.0 % [facility] MCV 91.6 80.0 - 100.[address] [facility] MCH 31.6 27.0 - 33.[address] [facility] MCHC 34.5 32.0 - 36.0 g/dL [facility] RDW 12.8 11.0 - 15.0 % [facility] PLATELETS 247 140 - 400 Thousand/ uL [employer] [facility] [place] MPV 11.5 7.5 - 12.5 fL [facility] NEUTROPHIL ABSOLUTE 7,613 1,500 - 7,800 cells/uL [facility] LYMPHOCYTE ABSOLUTE 3,550 850 - 3,900 cells/uL [facility] MONOCYTE ABSOLUTE 708 200 - 950 cells/uL [facility] EOSINOPHIL ABSOLUTE 281 15 - 500 cells/uL [facility] BASOPHILS ABSOLUTE 49 0 - 200 cells/uL [facility] NEUTROPHIL 62.4 % [facility] LYMPHOCYTES 29.1 % [facility] MONOCYTE 5.8 % [facility] [facility] EOSINOPHILS 2.3 % [facility] BASOPHILS 0.4 % [facility] Comment: Test Performed at: [facility] [address] [place], [place] ??[phone] Miguel Angel Zavala D.O., MPH Blood 04/22/2017 4:48 AM LIGHT INDUSTRIAL Marjorie Nava SAP BUSINESS ANALYST HEMATOLOGY ORDERABLE S Performing Organization Address City/[facility] Co de Phone Number [facility] [employer] [facility] [place] [address] [place] [address] documented in this encounter Visit Diagnoses Diagnosis Hypercholesterolemia- Primary Pure hypercholesterolemia Essential hypertension Unspecified essential hypertension Normal routine physical examination Reserved for inherently not codable concepts WITHOUT codable children documented in this encounter Care Teams Package Line Operator Relationship Specialty Start Date End Date David Mays MD PCP - General Family Practice 01/27/16 documented as of this encounter
--- OUTSIDE RECORDS SUMMARY | 2024-03-31 23:29 | XMS_ITS | Encounter Summary ---
Author Organization [facility] Address [address] [place] [address] Care Team Providers Care Quarter Folder Name Role Phone David Mays MD Primary Care Prov ider Reason for Visit * Reason Comments Anxiety Insomnia Hypertension Encounter Details Date Type Department Care Team (Late st Contact Info) Description 05/21/2019 2:00 PM BUSINESS EXCELLENCE LEADER Office Visit [facility] MEDICINE [address] [address] David Mays MD [address] [place] [phone] Routine physical examination (Primary Dx); Essential hypertension; Other screening mammogram; Screening for colon cancer; Hypercholesterolemia Social History Tobacco Use Types Packs/Day Years Used Date Smoking Tobacco: Every Day Cigarettes Tobacco Cessation:Counseling Given: Yes Comments:3-4 cigarettes daily Alcohol Use Standard Drinks/Week Comments No 0 (1 standard drink = 0.6 oz pur e alcohol) Sex and Gender Information Value Date Recorded Sex Assigned at Not on file Gender Identity Not on file Sexual Orientation Not on file documented as of this encounter Last Filed Vital Signs Vital Sign Reading Time Taken Comments Blood Pressure 155/78 05/21/2019 2:24 PM BUSINESS EXCELLENCE LEADER Pulse 61 05/21/2019 2:24 PM BUSINESS EXCELLENCE LEADER Temperature - - Respiratory Rate 16 05/21/2019 2:24 PM BUSINESS EXCELLENCE LEADER Oxygen Saturation - - Inhaled Oxygen Concentration - - Weight 59.4 kg (131 lb) 05/21/2019 2:24 PM BUSINESS EXCELLENCE LEADER Height 162.6 cm (5' 4 ) 05/21/2019 2:24 PM BUSINESS EXCELLENCE LEADER Body Mass Index 22.49 05/21/2019 2:24 PM BUSINESS EXCELLENCE LEADER documented in this encounter Progress Notes * David Mays MD - 05/21/2019 2:25 PM CST HISTORY OF PRESENT ILLNESS Krys Cook, a 63 y.o. female presents with a Chief Complaint of Anxiety; Insomnia; and Hypertension Subjective HPI Chief Complaint Patient presents with ??? Anxiety ??? Insomnia ??? Hypertension Had mountain dew today. SUBJECTIVE: Krys Cook is a 63 y.o. female who is here today for review and management of her chronic medical conditions as listed. She does not report acute complaints. Admits bp high likely due to mountain dew she drank prior to visit. I have reviewed the patient's medical and [...] PHQ-9 score >= 9 PHQ-2 Total: 0 (05/21/2019 2:00 PM) PHQ-9 Total: 1 (05/21/2019 2:00 PM) DEPRESSION PLAN OF CARE Her antidepressant medication was reviewed Normal BMI Range: 18 & older: > or = 18.5 and < 25 Body mass index is 22.49 kg/m??. BMI within normal limits HPI: 1. Routine physical examination Patient is here for her checkup. She obtains gyne exam, pap smear and breast care elsewhere. 2. Essential hypertension Taking medications, denies side effects. Admits not always following recommended diet and exercise.Patient denies any exertional chest pain, dyspnea, palpitations, syncope, orthopnea, edema or paroxysmal nocturnal dyspnea. - lisinopril (PRINIVIL) 40 mg tablet; Take 1 Tablet (40 mg) by mouth daily. Dispense: 90 Tablet; Refill: 1 - LIPID PANEL; Future 3. Other screening mammogram - MAMMO SCREEN BILAT W OR WO CAD; Future 4. Screening for colon cancer - OCCULT BLOOD IMMUNOASSAY, COLORECTAL SCREEN; Future 5. Hypercholesterolemia She has been taking lipitor statin cholesterol medication regularly without side effects such as myalgias or upper abdominal pain, nausea or jaundice. On low cholesterol diet and regular exercise. - LIPID PANEL; Future ROS: Cardiovascular: Denies chest pain or palpitations. No peripheral edema. Respiratory: Denies shortness of breath or cough. Abdominal: Denies abdominal pain, change in bowel habits. Neurological: No syncope. No severe headaches. PE: GENERAL: Alert and oriented. Pleasant and in no acute distress. Body Habitus: Normal BP (!) 155/78 Pulse 61 Resp 16 Ht 5' 4 (1.626 m) Wt 59.4 kg (131 lb) BMI 22.49 kg/m?? EYES: Conjunctivae and lids WNL. HEENT: [...] AND PLAN: Krys was seen today for anxiety, insomnia and hypertension. Diagnoses and all orders for this visit: Routine physical examination Counseled on safety preventive measures: Self breast exam, Recreational Safety, DrivingSafety, Regular Exercise, Low Salt, Cholesterol, and carbohydrate Diet, Calcium with Vitamin D for Osteoporosis prevention, Limit Alcohol, Avoid Drug use, Smoke Detectors, UV protection, Fall Prevention,and Gun Safety Essential hypertension Continue current medication, low salt diet and regular exercise. Encourage blood pressure monitoring at home. - lisinopril (PRINIVIL) 40 mg tablet; Take 1 Tablet (40 mg) by mouth daily. - LIPID PANEL; Future Other screening mammogram - MAMMO SCREEN BILAT W OR WO CAD; Future Screening for colon cancer - OCCULT BLOOD IMMUNOASSAY, COLORECTAL SCREEN; Future Hypercholesterolemia Continue current medication, low cholesterol diet, and regular exercise - LIPID PANEL; Future Return in about 6 months (around 11/19/2019), or if symptoms worsen or fail to improve, for fasting lipid panel . I will inform the patient of any laboratory results and changes in treatment or followup plans based on those. Return at any time if needed. NESS EXCELLENCE LEADER documented in this encounter Miscellaneous Notes * Patient Instructions - David Mays MD - 05/21/2019 2:55 PM BUSINESS EXCELLENCE LEADER Images from the original note were not included. Learning About High-Potassium Foods What foods are high in potassium? The foods you eat contain nutrients, such as vitamins and minerals. Potassium is a nutrient. Your body needs the right amount to stay healthy and work as it should. You can use the list below to helpyou make choices about which foods to eat. Foods are high in potassium if they have more than 200 mg per serving. Fruits ?? Apricots, 2 raw ?? Avocado, ?? fruit ?? Banana, 1 medium ?? Toño, 1 fruit ?? Nectarine, 1 fruit ?? Rincon, 1 fruit ?? Prunes, 5 fruits ?? Raisins, ?? cup Vegetables ?? Artichoke, 1 medium ?? Beets, ?? cup ?? Broccoli, ?? cup ?? Kale (raw), 1 cup ?? Potato with skin, 1 medium ?? Spinach, ?? cup ?? Sweet potato, 1 medium ?? Tomato sauce, ?? cup ?? Zucchini, ?? cup Dairy and dairy alternatives ?? Milk, 1 cup ?? Soy milk, 1 cup ?? Yogurt, 6 oz Meats and other protein foods ?? Beans (plummer, navy, white), ?? cup ?? Beef, ground, 3 oz ?? Chicken, 3 oz ?? Fish (halibut, tuna, cod, snapper), 3 oz ?? Nuts (almonds, hazelnuts, [place], cashew, pistachios), 1 oz ?? Peanut butter, 2 Tbsp ?? Peanuts, 1 oz ?? [place], 3 oz Seasonings ?? Salt substitutes Work with your doctor to find out how much of this nutrient you need. Depending on your health, youmay need more or less of it in your diet. Where can you learn more? Go to https://www.healthwise.net/patiented Enter P450 in the search box to learn more about Learning About High-Potassium Foods. Current as of: November 22, 2018 Content Version: 12.3 ?? [employer]. Care instructions adapted under license by your healthcare professional. If you have questions about a medical condition or this instruction, always ask your healthcare professional. These instructions may not represent the values of this healthcare organization. [employer] disclaims any warranty or liability for your use of this information. Potassium-Rich Diet: Care Instructions Your Care Instructions [...] Where can you learn more? Go to https://www.[employer].net/patiented Enter H315 in the search box to learn more about Potassium-Rich Diet: Care Instructions. Current as of: November 22, 2018 Content Version: 12.3 ?? [employer]. Care instructions adapted under license by your healthcare professional. If you have questions about a medical condition or this instruction, always ask your healthcare professional. These instructions may not represent the values of this healthcare organization. [employer] disclaims any warranty or liability for your use of this information. NESS EXCELLENCE LEADER documented in this encounter Plan of Treatment Not on file documented as of this encounter Visit Diagnoses Diagnosis Routine physical examination- Primary Routine general medical examination at a health care facility Essential hypertension Unspecified essential hypertension Other screening mammogram Screening for colon cancer Special screening for malignant neoplasms, colon Hypercholesterolemia Pure hypercholesterolemia documented in this encounter Care Teams Quarter Folder Relationship Specialty Start Date End Date David Mays MD PCP - General Family Practice 01/27/16 documented as of this encounter
--- OUTSIDE RECORDS SUMMARY | 2024-03-31 23:29 | XMS_ITS | Encounter Summary ---
Author Organization [facility] Address [address] [place] [address] Care Team Providers Care Licensing Representative Name Role Phone David Mays MD Primary Care Prov ider Reason for Visit * Reason Comments Medication Refill Encounter Details Date Type Department Care Team (Late st Contact Info) Description 12/14/[address] [address] aDvid Mays MD [address] [place] [phone] Insomnia, unspecified type; GUSTAVO (generalized anxiety disorder) [...] * Telephone Encounter - Kristel Cuadra - 2018 10:35 AM CDT Rx phoned in * Telephone Encounter - Andre Mccabe MD - 12/14/2018 5:38 PM CDT Rx for zolpidem and clonazepam signed, ready to be phoned into [facility] in [place] * Telephone Encounter - Kristel Cuadra - 12/14/2018 4:47 PM CDT TUAN- 10/27/18 NOV- 06/01/19 LRF- 11/15/18 documented in this encounter Plan of Treatment Not on file documented as of this encounter Visit Diagnoses Diagnosis Insomnia, unspecified type GUSTAVO (generalized anxiety disorder) Generalized anxiety disorder documented in this encounter Care Teams Licensing Representative Relationship Specialty Start Date End Date David Mays MD PCP - General Family Practice 01/27/16 documented as of this encounter
--- OUTSIDE RECORDS SUMMARY | 2024-03-31 23:29 | XMS_ITS | Encounter Summary ---
Author Organization [facility] Address [address] [place] [address] Care Team Providers Care Driller Operator Name Role Phone David Mays MD Primary Care Prov ider Reason for Visit * Reason Comments Medication Refill Encounter Details Date Type Department Care Team (Late st Contact Info) Description 01/19/2017 Refill [facility] MEDICINE - [address] [address] David Mays MD [address] [place] [address] Social History Tobacco Use Types Packs/Day Years [...] Telephone Encounter - Teresita Farley CMA - 01/20/2017 9:59 AM CDT Last RFL 09/17/16 TUAN 07/28/16 NOV 04/27/17 documented in this encounter Plan of Treatment Not on file documented as of this encounter Visit Diagnoses Not on filedocumented in this encounter Care Teams Driller Operator Relationship Specialty Start Date End Date David Mays MD PCP - General Family Practice 01/27/16 documented as of this encounter
--- OUTSIDE RECORDS SUMMARY | 2024-03-31 23:29 | XMS_ITS | Encounter Summary ---
Author Organization [facility] Address [address] [place] [address] Care Team Providers Care Magician/Illusionist Name Role Phone David Mays MD Primary Care Prov ider Reason for Visit * Reason Comments Medication Refill Encounter Details Date Type Department Care Team (Late st Contact Info) Description 07/11/2017 Refill [facility] MEDICINE - [address] [address] David Mays MD [address] [place] [phone] Social History Tobacco Use Types Packs/Day Years [...] * Telephone Encounter - Linda Pineda - 07/11/2017 3:17 PM CDT NOV 10/26/2017 TUAN 04/27/2017 Last fill Clonazepam 06/10/2017 Citalopram 12/08/2016 Zolpidem 06/10/2017 documented in this encounter Plan of Treatment Not on file documented as of this encounter Visit Diagnoses Not on filedocumented in this encounter Care Teams Magician/Illusionist Relationship Specialty Start Date End Date David Mays MD PCP - General Family Practice 01/27/16 documented as of this encounter
--- OUTSIDE RECORDS SUMMARY | 2024-03-31 23:29 | XMS_ITS | Encounter Summary ---
Author Organization [facility] Address [address] [place] [address] Care Team Providers Care Resistance Welding Machine Operator Name Role Phone David Mays MD Primary Care Prov ider Reason for Visit * Reason Comments Medication Refill Encounter Details Date Type Department Care Team (Late st Contact Info) Description 08/07/2020 Refill [facility] MEDICINE [address] [address] David Mays MD [address] [place] [phone] GUSTAVO (generalized anxiety disorder); Insomnia, unspecified type [...] * Telephone Encounter - Iva Lopez - 08/08/2020 9:18 AM CDT Medication name: klonopin Last RF: 07/11/20 # Dispensed/Refills: 15 Medication name: ambien Last RF: 07/11/20 # Dispensed/Refills: 30 Last appt: 05/27/20 Next appt: 12/09/20 documented in this encounter Plan of Treatment Not on file documented as of this encounter Visit Diagnoses Diagnosis GUSTAVO (generalized anxiety disorder) Generalized anxiety disorder Insomnia, unspecified type documented in this encounter Care Teams Resistance Welding Machine Operator Relationship Specialty Start Date End Date David Mays MD PCP - General Family Practice 01/27/16 documented as of this encounter
--- OUTSIDE RECORDS SUMMARY | 2024-03-31 23:29 | XMS_ITS | Encounter Summary ---
Author Organization [facility] Address [address] [facility] [address] [facility] Attn: Epic Prelude ADT PAT RUIZ [address] Care Team Providers Care Financial Sales Associate Name Role Phone David Mays MD Primary Care Prov ider Encounter Details Date Type Department Care Team (Latest Contact Info) Description 05/21/2019 Travel Social History Tobacco Use Types Packs/Day [...] on filedocumented in this encounter Care Teams Financial Sales Associate Relationship Specialty Start Date End Date David Mays MD PCP - General Family Practice 01/27/16 documented as of this encounter
--- OUTSIDE RECORDS SUMMARY | 2024-03-31 23:29 | XMS_ITS | Encounter Summary ---
Author Organization [facility] Address [address] [place] [address] Care Team Providers Care Apartment Locator Name Role Phone David Mays MD Primary Care Prov ider Reason for Visit * Reason Comments Follow Up Information Encounter Details Date Type Department Care Team (Late st Contact Info) Description 04/27/2017 1:40 PM TOPOLOGY PROFESSOR Office Visit [facility] MEDICINE [address] [address] David Mays MD [address] [place] [phone] Hypercholesterolemia (Primary Dx); Essential hypertension; Tobacco use; Major depressive disorder with single episode, in full remission Social History Tobacco Use Types Packs/Day Years [...] Sign Reading Time Taken Comments Blood Pressure 105/67 04/27/2017 1:25 PM TOPOLOGY PROFESSOR Pulse 83 04/27/2017 1:25 PM TOPOLOGY PROFESSOR Temperature - - Respiratory Rate 16 04/27/2017 1:25 PM TOPOLOGY PROFESSOR Oxygen Saturation - - Inhaled Oxygen Concentration - - Weight 68 kg (150 lb) 04/27/2017 1:25 PM TOPOLOGY PROFESSOR Height 162.6 cm (5' 4 ) 04/27/2017 1:25 PM TOPOLOGY PROFESSOR Body Mass Index 25.75 04/27/2017 1:25 PM TOPOLOGY PROFESSOR documented in this encounter Progress Notes * David Mays MD - 04/27/2017 1:58 PM CST HISTORY OF PRESENT ILLNESS Krys Cook, a 61 y.o. female presents with a Chief Complaint of Follow Up and Information Subjective HPI Chief Complaint Patient presents with ??? Follow Up ??? Information Krys is 61 y/o wf presents to clinic for f/u. Reviewed labs. Known history of Hypertension. She is taking medications as instructed, no side effects of medications, no chest pain on exertion, no dyspnea on exertion, no edema , patient does not perform home BP monitoring, range. She is following low salt diet and exercise. ?? Lab Results Component Value Date/Time NA 146 04/22/2017 04:48 AM K 3.7 04/22/2017 04:48 AM CL 99 04/22/2017 04:48 AM CO2 34 (H) 04/22/2017 04:48 AM CA 10.0 04/22/2017 04:48 AM BUN 8 04/22/2017 04:48 AM CREAT 0.98 04/22/2017 04:48 AM GLUCOSE 96 04/22/2017 04:48 AM BCRATIO NOT APPLICABLE 04/22/2017 04:48 AM Has hx of HLD has been taking pravachol statin cholesterol medication regularly without side effects such as myalgias or upper abdominal pain, nausea or jaundice. Noted to have elevated ldl and trig.Not following low chol diet and regular exercise. Lab Results Component Value Date/Time CHOLTOT 239 (H) 04/22/2017 04:48 AM HDL 45 (L) 04/22/2017 04:48 AM LDLCALC 164 (H) 04/22/2017 04:48 AM TRIGLYCERIDE 156 (H) 04/22/2017 04:48 AM ?? Has history of Depression and insominia. Currently on celexa and klonopin and ambien. Tolerating medication. Denies side effect. Mood has improved. No crying spells, mood swing and insomnia. Denies suicidal and homicidal ideation. ?? Also noted to have high bicarb, advised to have sleep study. Declined at this time. ?? Lab Results Component Value Date/Time NA 146 04/22/2017 04:48 AM K 3.7 04/22/2017 04:48 AM CL 99 04/22/2017 04:48 AM CO2 34 (H) 04/22/2017 04:48 AM CA 10.0 04/22/2017 04:48 AM BUN 8 04/22/2017 04:48 AM CREAT 0.98 04/22/2017 04:48 AM GLUCOSE 96 04/22/2017 04:48 AM BCRATIO NOT APPLICABLE 04/22/2017 04:48 AM Declined vaccine and colonoscopy. REVIEW OF SYSTEMS Review of Systems Constitutional: [...] and sleep disturbance. Objective PHYSICAL EXAM BP 105/67 Pulse 83 Resp 16 Ht 5' 4 (1.626 m) Wt 68 kg (150 lb) BMI 25.75 kg/m?? Physical Exam Constitutional: She appears well-developed. [...] Her behavior is normal. Thought content normal. Assessment ASSESSMENT and PLAN: Problem List Items Addressed This Visit Depression stable. The current medical regimen is effective; continue present plan and medications. Hypercholesterolemia - Primary not controlled. Will switch to lipitor. Low cholesterol diet and regular exercise. Relevant Medications atorvastatin (LIPITOR) 40 mg tablet Other Relevant Orders COMPREHENSIVE METABOLIC PANEL Hypertension stable. Low salt diet and regular exercise. Encourage blood pressure monitoring at home. Relevant Medications atorvastatin (LIPITOR) 40 mg tablet lisinopril (PRINIVIL) 20 mg tablet Tobacco use The patient is sincerely urged to quit smoking. The numerous direct health benefits arediscussed. If she decides to quit, there are a number of helpful adjunctive aids, and she can see me to discuss nicotine replacement therapy and bupropion anytime in the future. LOGY PROFESSOR documented in this encounter Plan of Treatment Not on file documented as of this encounter Visit Diagnoses Diagnosis Hypercholesterolemia- Primary Pure hypercholesterolemia Essential hypertension Unspecified essential hypertension Tobacco use Tobacco use disorder Major depressive disorder with single episode, in full remission documented in this encounter Care Teams Apartment Locator Relationship Specialty Start Date End Date David Mays MD PCP - General Family Practice 01/27/16 documented as of this encounter
--- OUTSIDE RECORDS SUMMARY | 2024-03-31 23:29 | XMS_ITS | Encounter Summary ---
Author Organization [facility] Address [address] [place] [address] Care Team Providers Care Hearing Care Practitioner Name Role Phone David Mays MD Primary Care Prov ider Reason for Visit * Reason Comments Medication Refill Encounter Details Date Type Department Care Team (Late st Contact Info) Description 03/16/[address] [facility] MEDICINE - [address] [address] David Mays MD [address] [place] [phone] Insomnia, unspecified type; Essential hypertension; GUSTAVO (generalized anxiety disorder); Hypercholesterolemia Social History Tobacco Use Types Packs/Day [...] encounter Miscellaneous Notes * Telephone Encounter - Pamela Damico PCA - 03/16/2019 10:34 AM SANTA'S HELPER Last RFL 02/15/19 TUAN 10/27/18 NOV 06/01/18 A'S HELPER documented in this encounter Plan of Treatment Not on file documented as of this encounter Visit Diagnoses Diagnosis Insomnia, unspecified type Essential hypertension Unspecified essential hypertension GUSTAVO (generalized anxiety disorder) Generalized anxiety disorder Hypercholesterolemia Pure hypercholesterolemia documented in this encounter Care Teams Hearing Care Practitioner Relationship Specialty Start Date End Date David Mays MD PCP - General Family Practice 01/27/16 documented as of this encounter
--- OUTSIDE RECORDS SUMMARY | 2024-03-31 23:29 | XMS_ITS | Encounter Summary ---
Author Organization [facility] Address [address] [place] [address] Care Team Providers Care Carpenter Mold Name Role Phone David Mays MD Primary Care Prov ider Reason for Visit * Reason Onset Date Comments Erroneous encounter-disregard 04/08/2017 Encounter Details Date Type Department Care Team (Late st Contact Info) Description 04/08/2017 [facility] FAMILY MEDICINE - [address] [address] David Mays MD [address] [place] [address] Social History Tobacco Use Types Packs/Day Years [...] Notes * Telephone Encounter - Kala Causey - 04/26/2017 5:04 PM CST erroneus encounter PRESS OPERATOR documented in this encounter Plan of Treatment Not on file documented as of this encounter Visit Diagnoses Not on filedocumented in this encounter Care Teams Carpenter Mold Relationship Specialty Start Date End Date David Mays MD PCP - General Family Practice 01/27/16 documented as of this encounter
--- OUTSIDE RECORDS SUMMARY | 2024-03-31 23:29 | XMS_ITS | Encounter Summary ---
Author Organization [facility] Address [address] [place] [address] Care Team Providers Care Abrasive Mixer Helper Name Role Phone David Mays MD Primary Care Prov ider Reason for Visit * Reason Comments Medication Refill Encounter Details Date Type Department Care Team (Late st Contact Info) Description 06/09/2017 Refill [facility] MEDICINE - [address] [address] David Mays MD [address] [place] [phone] Social History Tobacco Use Types Packs/Day Years [...] * Telephone Encounter - Linda Pineda - 06/09/2017 5:05 PM CST NOV 10/26/2017 TUAN 04/27/2017 Last fill 05/11/2017 ESIS NURSE documented in this encounter Plan of Treatment Not on file documented as of this encounter Visit Diagnoses Not on filedocumented in this encounter Care Teams Abrasive Mixer Helper Relationship Specialty Start Date End Date David Mays MD PCP - General Family Practice 01/27/16 documented as of this encounter
--- OUTSIDE RECORDS SUMMARY | 2024-03-31 23:29 | XMS_ITS | Encounter Summary ---
Author Organization [facility] Address [address] [place] [address] Care Team Providers Care Acid Recovery Operator Name Role Phone David Mays MD Primary Care Prov ider Reason for Visit * Reason Comments Medication Refill Encounter Details Date Type Department Care Team (Late st Contact Info) Description 10/15/2019 Refill [facility] MEDICINE - [address] [address] David Mays MD [address] [place] [phone] Insomnia, unspecified type; GUSTAVO (generalized anxiety disorder) [...] * Telephone Encounter - Saskia Parish - 10/15/2019 4:18 PM CDT Medication name: Klonopin and Ambien Last RF: 09/17/2019 # Dispensed/Refills: #15 for klonopin, #30 for ambien Last appt: 05/21/2019 Next appt: 11/20/2019 If the patient is due for an appointment, do not forward to provider until you have scheduled patient for appointment. If the patient's medication has already been sent in, call the pharmacy/patient to see why beforeforwarding to provider. For maintenance medications: confirm patient will have enough medication until next appointment. documented in this encounter Plan of Treatment Not on file documented as of this encounter Visit Diagnoses Diagnosis Insomnia, unspecified type GUSTAVO (generalized anxiety disorder) Generalized anxiety disorder documented in this encounter Care Teams Acid Recovery Operator Relationship Specialty Start Date End Date David Mays MD PCP - General Family Practice 01/27/16 documented as of this encounter
--- OUTSIDE RECORDS SUMMARY | 2024-03-31 23:29 | XMS_ITS | Encounter Summary ---
Author Organization [facility] Address [address] [place] [address] Care Team Providers Care Qc Chemist Name Role Phone David Mays MD Primary Care Prov ider Reason for Visit * Reason Comments Medication Refill Encounter Details Date Type Department Care Team (Late st Contact Info) Description 12/28/2016 Refill [facility] MEDICINE [address] [address] David Mays MD [address] [place] [phone] Social History Tobacco Use Types Packs/Day Years [...] on filedocumented in this encounter Care Teams Qc Chemist Relationship Specialty Start Date End Date David Mays MD PCP - General Family Practice 01/27/16 documented as of this encounter
--- OUTSIDE RECORDS SUMMARY | 2024-03-31 23:29 | XMS_ITS | Encounter Summary ---
Author Organization [facility] Address [address] [place] [address] Care Team Providers Care Patcher Wood Welder Name Role Phone David Mays MD Primary Care Prov ider Reason for Visit * Reason Comments Medication Refill Encounter Details Date Type Department Care Team (Late st Contact Info) Description 07/10/2018 Refill [facility] MEDICINE [address] [address] David Mays MD [address] [place] [phone] Social History Tobacco Use Types Packs/Day Years [...] Telephone Encounter - Teresita Farley CMA - 07/10/2018 4:15 PM CDT 10/27/2018 TUAN 04/28/18 Last refill date: 06/08/18 documented in this encounter Plan of Treatment Not on file documented as of this encounter Visit Diagnoses Not on filedocumented in this encounter Care Teams Patcher Wood Welder Relationship Specialty Start Date End Date David Mays MD PCP - General Family Practice 01/27/16 documented as of this encounter
--- OUTSIDE RECORDS SUMMARY | 2024-03-31 23:29 | XMS_ITS | Encounter Summary ---
Author Organization [facility] Address [address] [place] [address] Care Team Providers Care Rheostat Assembler Name Role Phone David Mays MD Primary Care Prov ider Reason for Visit * Reason Comments Medication Refill Encounter Details Date Type Department Care Team (Late st Contact Info) Description 03/04/2017 Refill [facility] MEDICINE [address] [address] David Mays MD [address] [place] [phone] Social History Tobacco Use Types Packs/Day Years [...] * Telephone Encounter - Linda Pineda - 03/04/2017 6:29 PM CST LM on pharmacy line. HT SERVICE SPECIALIST * Telephone Encounter - Linda Pineda - 03/04/2017 2:48 PM CST NOV 04/27/2017 TUAN 07/28/2016 Last fill Clonazepam 01/28/2017 Zolpidem 01/31/2017 HT SERVICE SPECIALIST documented in this encounter Plan of Treatment Not on file documented as of this encounter Visit Diagnoses Not on filedocumented in this encounter Care Teams Rheostat Assembler Relationship Specialty Start Date End Date David Mays MD PCP - General Family Practice 01/27/16 documented as of this encounter
--- OUTSIDE RECORDS SUMMARY | 2024-03-31 23:29 | XMS_ITS | Encounter Summary ---
Author Organization [facility] Address [address] [place] [address] Care Team Providers Care Warehouse Checker Name Role Phone David Mays MD Primary Care Prov ider Reason for Visit * Reason Comments Medication Refill Encounter Details Date Type Department Care Team (Late st Contact Info) Description 05/14/2020 Refill [facility] MEDICINE [address] [address] David Mays MD [address] [place] [phone] GUSTAVO (generalized anxiety disorder); Insomnia, unspecified type [...] * Telephone Encounter - Iva Boyd - 05/14/2020 1:24 PM CST Medication name: ambien Last RF: 04/14/20 # Dispensed/Refills: 30 Medication name: klonopin Last RF: 04/14/20 # Dispensed/Refills: 15 Last appt: 11/20/2019 Next appt: 05/27/20 VATING SUPERVISOR documented in this encounter Plan of Treatment Not on file documented as of this encounter Visit Diagnoses Diagnosis GUSTAVO (generalized anxiety disorder) Generalized anxiety disorder Insomnia, unspecified type documented in this encounter Care Teams Warehouse Checker Relationship Specialty Start Date End Date David Mays MD PCP - General Family Practice 01/27/16 documented as of this encounter
--- OUTSIDE RECORDS SUMMARY | 2024-03-31 23:29 | XMS_ITS | Encounter Summary ---
Author Organization [facility] Address [address] [place] [address] Care Team Providers Care Iron Melter Name Role Phone David Mays MD Primary Care Prov ider Reason for Visit * Reason Comments Medication Refill Encounter Details Date Type Department Care Team (Late st Contact Info) Description 12/07/2017 Refill [facility] MEDICINE - [address] [address] David Mays MD [address] [place] [phone] Social History Tobacco Use Types Packs/Day Years [...] * Telephone Encounter - Linda Pineda - 12/07/2017 12:58 PM CDT NOV 04/28/2018 TUAN 10/26/2017 Last refill date: 11/07/2017 documented in this encounter Plan of Treatment Not on file documented as of this encounter Visit Diagnoses Not on filedocumented in this encounter Care Teams Iron Melter Relationship Specialty Start Date End Date David Mays MD PCP - General Family Practice 01/27/16 documented as of this encounter
--- OUTSIDE RECORDS SUMMARY | 2024-03-31 23:29 | XMS_ITS | Encounter Summary ---
Author Organization [facility] Address [address] [place] [address] Care Team Providers Care Commercial Credit Analyst Name Role Phone David Mays MD Primary Care Prov ider Reason for Visit * Reason Comments Medication Refill Encounter Details Date Type Department Care Team (Late st Contact Info) Description 05/10/2017 Refill [facility] MEDICINE [address] [address] David Mays MD [address] [place] [phone] Social History Tobacco Use Types Packs/Day Years [...] encounter Miscellaneous Notes * Telephone Encounter - Maris Roberts - 05/12/2017 10:11 AM CST Phoned in OR ACCOUNTING CLERK * Telephone Encounter - Teresita Farley CMA - 05/11/2017 8:55 AM JUNIOR ACCOUNTING CLERK Last RFL 04/08/17 TUAN 04/27/17 NOV 10/26/17 OR ACCOUNTING CLERK documented in this encounter Plan of Treatment Not on file documented as of this encounter Visit Diagnoses Not on filedocumented in this encounter Care Teams Commercial Credit Analyst Relationship Specialty Start Date End Date Daivd Mays MD PCP - General Family Practice 01/27/16 documented as of this encounter
--- OUTSIDE RECORDS SUMMARY | 2024-03-31 23:29 | XMS_ITS | Encounter Summary ---
Author Organization [facility] Address [address] [place] [address] Care Team Providers Care Patternmaker Metal Bench Name Role Phone David Mays MD Primary Care Prov ider Reason for Visit * Reason Comments Medication Refill Encounter Details Date Type Department Care Team (Late st Contact Info) Description 09/12/[address] [address] David Mays MD [address] [place] [address] Essential hypertension Social History Tobacco Use Types [...] hypertension documented in this encounter Care Teams Patternmaker Metal Bench Relationship Specialty Start Date End Date David Mays MD PCP - General Family Practice 01/27/16 documented as of this encounter
--- OUTSIDE RECORDS SUMMARY | 2024-03-31 23:29 | XMS_ITS | Encounter Summary ---
Author Organization [facility] Address [address] [place] [address] Care Team Providers Care Yarder Engineer Name Role Phone David Mays MD Primary Care Prov ider Reason for Visit * Reason Comments Medication Refill Encounter Details Date Type Department Care Team (Late st Contact Info) Description 11/15/[address] [address] David Mays MD [address] [place] [phone] Insomnia, unspecified type; GUSTAVO (generalized anxiety disorder) [...] Telephone Encounter - Teresita Farley CMA - 11/15/2018 4:44 PM CDT Rx phoned in. * Telephone Encounter - David Mays MD - 11/15/2018 3:36 PM CDT Please phone in. * Telephone Encounter - Saskia Villalobos - 11/15/2018 3:19 PM CDT ZOLPIDEM TARTRATE 5 MG TAB 5 TAB Last RFL 10/11/18 TUAN 10/27/18 NOV none CLONAZEPAM 1 MG TAB 1 TAB Last RFL 10/16/18 documented in this encounter Plan of Treatment Not on file documented as of this encounter Visit Diagnoses Diagnosis Insomnia, unspecified type GUSTAVO (generalized anxiety disorder) Generalized anxiety disorder documented in this encounter Care Teams Yarder Engineer Relationship Specialty Start Date End Date David Mays MD PCP - General Family Practice 01/27/16 documented as of this encounter
--- OUTSIDE RECORDS SUMMARY | 2024-03-31 23:29 | XMS_ITS | Encounter Summary ---
Author Organization [facility] Address [address] [place] [address] Care Team Providers Care Administrative Receptionist Name Role Phone David Mays MD Primary Care Prov ider Reason for Visit * Reason Comments Medication Refill Encounter Details Date Type Department Care Team (Late st Contact Info) Description 04/07/2018 Refill [facility] MEDICINE [address] [address] David Mays MD [address] [place] [phone] Social History Tobacco Use Types Packs/Day Years [...] encounter Miscellaneous Notes * Telephone Encounter - Marah Guillen - 04/07/2018 5:44 PM CST Rx phone in CIPAL SYSTEM SOFTWARE ENGINEER * Telephone Encounter - Andre Mccabe MD - 04/07/2018 4:48 PM CST Rx for clonazepam and zolpidem signed and ready to be phoned into [facility] CIPAL SYSTEM SOFTWARE ENGINEER * Telephone Encounter - Teresita Farley CMA - 04/07/2018 4:12 PM PRINCIPAL SYSTEM SOFTWARE ENGINEER NOV 04/28/2018 TUAN 10/26/17 Last refill date: 03/09/18 CIPAL SYSTEM SOFTWARE ENGINEER documented in this encounter Plan of Treatment Not on file documented as of this encounter Visit Diagnoses Not on filedocumented in this encounter Care Teams Administrative Receptionist Relationship Specialty Start Date End Date David Mays MD PCP - General Family Practice 01/27/16 documented as of this encounter
--- OUTSIDE RECORDS SUMMARY | 2024-03-31 23:29 | XMS_ITS | Encounter Summary ---
Author Organization [facility] Address [address] [place] [address] Care Team Providers Care Pipe Line Gauger Name Role Phone David Mays MD Primary Care Prov ider Reason for Visit * Reason Comments Medication Refill Encounter Details Date Type Department Care Team (Late st Contact Info) Description 03/12/2020 Refill [facility] MEDICINE - [address] [address] Andre Mccabe MD [address] [place] [phone] Insomnia, unspecified type; GUSTAVO (generalized anxiety disorder) [...] encounter Miscellaneous Notes * Telephone Encounter - Valerie Zacarias - 03/12/2020 4:14 PM CST Medication name: KlonoPIN Last RF: 02/15/20 # Dispensed/Refills: 15 Last appt: 11/20/19 Next appt: 05/27/20 Medication name: AMBIEN Last RF: 02/15/20 # Dispensed/Refills: 30 Last appt: 11/20/19 Next appt: 05/27/20 R TESTER documented in this encounter Plan of Treatment Not on file documented as of this encounter Visit Diagnoses Diagnosis Insomnia, unspecified type GUSTAVO (generalized anxiety disorder) Generalized anxiety disorder documented in this encounter Care Teams Pipe Line Gauger Relationship Specialty Start Date End Date David Mays MD PCP - General Family Practice 01/27/16 documented as of this encounter
--- OUTSIDE RECORDS SUMMARY | 2024-03-31 23:29 | XMS_ITS | Encounter Summary ---
Author Organization [facility] Address [address] [place] [address] Care Team Providers Care Radiation Control Worker Name Role Phone David Mays MD Primary Care Prov ider Reason for Visit * Reason Comments Medication Refill Encounter Details Date Type Department Care Team (Late st Contact Info) Description 05/10/[address] [address] Andre Mccabe MD [address] [place] [phone] Social History Tobacco Use Types Packs/Day Years [...] * Telephone Encounter - Kristel Cuadra - 05/11/2018 8:47 AM CST NOV- 10/27/18 LRF- 04/08/18 TUAN- 04/28/18 NG MACHINE TENDER CORK ROD documented in this encounter Plan of Treatment Not on file documented as of this encounter Visit Diagnoses Not on filedocumented in this encounter Care Teams Radiation Control Worker Relationship Specialty Start Date End Date David Mays MD PCP - General Family Practice 01/27/16 documented as of this encounter
--- OUTSIDE RECORDS SUMMARY | 2024-03-31 23:29 | XMS_ITS | Encounter Summary ---
Author Organization [facility] Address [address] [place] [address] Care Team Providers Care Deputy Brand Inspector Name Role Phone David Mays MD Primary Care Prov ider Reason for Visit * Reason Comments Medication Refill Encounter Details Date Type Department Care Team (Late st Contact Info) Description 05/19/2018 Refill [facility] MEDICINE - [address] [address] David Mays MD [address] [place] [phone] Social History Tobacco Use Types Packs/Day Years [...] Telephone Encounter - Teresita Farley CMA - 05/19/2018 3:23 PM ATOMIC SPECTROSCOPIST 10/27/2018 TUAN 04/28/18 Last refill date: 04/19/18 IC SPECTROSCOPIST documented in this encounter Plan of Treatment Not on file documented as of this encounter Visit Diagnoses Not on filedocumented in this encounter Care Teams Deputy Brand Inspector Relationship Specialty Start Date End Date David Mays MD PCP - General Family Practice 01/27/16 documented as of this encounter
--- OUTSIDE RECORDS SUMMARY | 2024-03-31 23:29 | XMS_ITS | Encounter Summary ---
Author Organization [facility] Address [address] [place]: Epic Prelude ADT [place] [address] Care Team Providers Care Global Consumer Sector Vice President Name Role Phone David Mays MD Primary Care Prov ider Encounter Details Date Type Department Care Team (Latest Contact Info) Description 11/20/2019 Travel Social History Tobacco Use Types Packs/Day [...] on filedocumented in this encounter Care Teams Global Consumer Sector Vice President Relationship Specialty Start Date End Date David Mays MD PCP - General Family Practice 01/27/16 documented as of this encounter
--- OUTSIDE RECORDS SUMMARY | 2024-03-31 23:29 | XMS_ITS | Encounter Summary ---
Author Organization [facility] Address [address] [place] [address] Care Team Providers Care Ophthalmic Medical Technologist Name Role Phone David Mays MD Primary Care Prov ider Reason for Visit * Reason Comments Medication Refill Encounter Details Date Type Department Care Team (Late st Contact Info) Description 02/06/2018 Refill [facility] MEDICINE - [address] [address] Andre Mccabe MD [address] [place] [phone] Social History Tobacco Use Types Packs/Day Years [...] * Telephone Encounter - Linda Pineda - 02/06/2018 4:17 PM CST NOV 04/28/2018 TUAN 10/26/2017 Last refill date: 01/06/2018 R EXPEDITER documented in this encounter Plan of Treatment Not on file documented as of this encounter Visit Diagnoses Not on filedocumented in this encounter Care Teams Ophthalmic Medical Technologist Relationship Specialty Start Date End Date David Mays MD PCP - General Family Practice 01/27/16 documented as of this encounter
--- OUTSIDE RECORDS SUMMARY | 2024-03-31 23:29 | XMS_ITS | Encounter Summary ---
Author Organization [facility] Address [address] [place] [address] Care Team Providers Care Metal Hanger Name Role Phone David Mays MD Primary Care Prov ider Reason for Visit * Reason Onset Date Comments Medication Refill 11/23/2016 Encounter Details Date Type Department Care Team (Late st Contact Info) Description 11/23/2016 Refill [facility]ICINE - [address] [address] David Mays MD [address] [place] [phone] Social History Tobacco Use Types Packs/Day Years [...] * Telephone Encounter - Linda Pineda - 12/03/2016 2:00 PM CDT LM on pharmacy line. Pt informed, she is positive that Dr. Mays said it would be OK to wait until April for next f/uvisit. Asking if Dr. Lind will consider waiting until then,s ays she doesn't have any issues with her meds and takes as prescribed. Per Dr. Mays, OK to wait until April for NOV but will need to be seen every 6 months after that. Pt informed, verbalized understanding and agreement. * Telephone Encounter - David Mays MD - 12/02/2016 12:20 PM CDT Protocol for monitoring for controlled medication, pt needs to be seen and evaluation no longer than 6 months. For her to continue getting refill I recommend she make appt no later than Jan ( 6 months from last visit). * Telephone Encounter - Linda Pineda - 12/02/2016 12:12 PM CDT Pt informed, says she scheduled a visit for April 2017 because she does not currently have insurance, says she is not having any problems with insurance or anything else right now, feels fine, asking if OK to wait until April for f/u * Telephone Encounter - Linda Pineda - 11/23/2016 7:03 PM CDT LM on pharmacy line. Need to call pt, she needs f/u visit in December * Telephone Encounter - David Mays MD - 11/23/2016 6:48 PM CDT Please schedule f/u appt. * Telephone Encounter - Linda Pineda - 11/23/2016 6:09 PM CDT NOV 04/27/2017 TUAN 07/28/2016 Last fill 10/20/2016 documented in this encounter Plan of Treatment Not on file documented as of this encounter Visit Diagnoses Not on filedocumented in this encounter Care Teams Metal Hanger Relationship Specialty Start Date End Date David Mays MD PCP - General Family Practice 01/27/16 documented as of this encounter
--- OUTSIDE RECORDS SUMMARY | 2024-03-31 23:29 | XMS_ITS | Encounter Summary ---
Author Organization [facility] [place] Address [address] [place] [address] Care Team Providers Care Shank Pinner Name Role Phone David Mays MD Primary Care Prov ider Reason for Visit * Reason Comments Physical Encounter Details Date Type Department Care Team (Late st Contact Info) Description 10/26/2017 1:20 PM CDT Office Visit [facility] [address] [address] David Mays MD [address] [place] [phone] Routine physical examination (Primary Dx); Abnormal LFTs (liver function tests); Chronic viral hepatitis B without coma and with delta agent; Hypercholesterolemia Social History Tobacco Use Types Packs/Day [...] Sign Reading Time Taken Comments Blood Pressure 151/80 10/26/2017 1:34 PM CDT Pulse 80 10/26/2017 1:34 PM CDT Temperature - - Respiratory Rate 15 10/26/2017 1:34 PM CDT Oxygen Saturation - - Inhaled Oxygen Concentration - - Weight 63 kg (138 lb 14.4 oz) 10/26/2017 1:34 PM CDT Height 162.6 cm (5' 4 ) 10/26/2017 1:34 PM CDT Body Mass Index 23.84 10/26/2017 1:34 PM CDT documented in this encounter Progress Notes * David Mays MD - 10/26/2017 1:45 PM CDT HISTORY OF PRESENT ILLNESS Krys Cook, a 61 y.o. female presents with a Chief Complaint of Physical Subjective HPI Chief Complaint Patient presents with ??? Physical Well Adult Physical Patient here for a comprehensive physical exam.The patient reports problems - discussed lab. Noted to have elevated lft - Had a drink Half a bottle whisky . Noted to have elevated alk phos hep B. Treated. Hx of etoh abuse not drinking until last week, had nausea. Stressed out refinance house. Do you take any herbs or supplements that were not prescribed by a doctor? no Are you taking calcium supplements? no Are you taking aspirin daily? no History: LMP: No LMP recorded. Patient is postmenopausal. Menopause at years Last pap date: over 10 years - declined today. Abnormal pap? no : 1 Para: 0 Known history of Hypertension, missed medication today, no side effects of medications, no chest pain on exertion, no dyspnea on exertion, no edema , patient does not perform home BP monitoring, range. She is following low salt diet and exercise. ?? Has hx of HLD has been taking lipitor 40 mg statin cholesterol medication regularly without side effects such as myalgias or upper abdominal pain, nausea or jaundice. ?? Has history of Depression. Currently on celexa and klonopin. ambien prn. Tolerating medication. Denies side effect. Mood has improved. No crying spells, mood swing and insomnia. Denies suicidal and homicidal ideation. ? Declined vaccine and colonoscopy. ?? Patient Active Problem List Diagnosis Date Noted ??? Depression 01/27/2016 ??? Hypercholesterolemia 01/27/2016 ??? Hypertension 01/27/2016 ??? Adiposity 01/27/2016 ??? Tobacco use 07/16/2015 Current Outpatient Prescriptions on File Prior to Visit Medication Sig Dispense Refill ??? zolpidem (AMBIEN) 5 mg tablet TAKE 1 TABLET BY MOUTH NIGHTLY NEEDED FOR INSOMNIA 30 Tablet 0 ??? clonazePAM (KlonoPIN) 0.5 mg Tablet TAKE 1 TABLET BY MOUTH BY MOUTH NIGHTLY NEEDED FOR ANXIETY 30 Tablet 0 ??? citalopram (CeleXA) 20 mg tablet TAKE ONE TABLET BY MOUTH ONCE DAILY 90 Tablet 2 ??? atorvastatin (LIPITOR) 40 mg tablet Take 1 Tablet (40 mg) by mouth late in the day. 30 Tablet 6 ??? lisinopril (PRINIVIL) 20 mg tablet Take 1 Tablet (20 mg) by mouth daily. 90 Tablet 1 ??? triamcinolone acetonide (NASACORT AQ) 55 mcg nasal spray Administer 1 [place] in each nostril daily. 17 Gram 3 ??? aspirin (ECOTRIN EC) 81 mg Tablet, [...] and sleep disturbance. Objective PHYSICAL EXAM BP (!) 151/80 Pulse 80 Resp 15 Ht 5' 4 (1.626 m) Wt 63 kg (138 lb 14.4 oz) ? No BMI 23.84 kg/m?? Physical Exam Constitutional: She appears well-developed. [...] cholesterol diet, and regular exercise Relevant Orders LIPID PANEL Other Visit Diagnoses Routine physical examination - Primary Counseled on safety preventive measures: Self breast exam, Recreational Safety, DrivingSafety, Regular Exercise, Low Salt, Cholesterol, and carbohydrate Diet, Calcium with Vitamin D for Osteoporosis prevention, Limit Alcohol, Avoid Drug use, Smoke Detectors, UV protection, Fall Prevention,and Gun Safety Declined pap smear. Abnormal LFTs (liver function tests) Will follow up result and treat accordingly Avoidance of alcohol use. Relevant Orders US GB AND LIVER Chronic viral hepatitis B without coma and with delta agent (Chronic) Will follow up result and treat accordingly Relevant Orders HEPATITIS B SURFACE ANTIGEN HEPATIC FUNCTION PANEL documented in this encounter Miscellaneous Notes * Patient Instructions - David Mays MD - 10/26/2017 1:59 PM CDT Images from the original note were not included. angelMD. Well Visit, Women 50 to 65: Care Instructions Your Care Instructions Physical exams can help you stay healthy. Your doctor has checked your overall health and may have suggested ways to take good care of yourself. He or she also may have recommended tests. At home, you can help prevent illness with healthy eating, regular exercise, and other steps. Follow-up care is a merino part of your treatment and safety. Be sure to make and go to all appointments, and call your doctor if you are having problems. It's also a good idea to know your test resultsand keep a list of the medicines you take. How can you care for yourself at home? ?? Reach and stay at a healthy weight. This will lower your risk for many problems, such as obesity, diabetes, heart disease, and high blood pressure. ?? Get at least 30 minutes of exercise on most days of the week. Walking is a good choice. You alsomay want to do other activities, such as running, swimming, cycling, or playing tennis or team sports. ?? Do not smoke. Smoking can make health problems worse. If you need help quitting, talk to your doctor about stop-smoking programs and medicines. These can increase your chances of quitting for good. ?? Protect your skin from too much sun. When you're outdoors from 10 a.m. to 4 p.m., stay in the shade or cover up with clothing and a hat with a wide brim. Wear sunglasses that block UV rays. Even when it's cloudy, put broad-spectrum sunscreen (SPF 30 or higher) on any exposed skin. ?? See a dentist one or two times a year for checkups and to have your teeth cleaned. ?? Wear a seat belt in the car. ?? Limit alcohol to 1 drink a day. Too much alcohol can cause health problems. Follow your doctor's advice about when to have certain tests. These tests can spot problems early. ?? Cholesterol. Your doctor will tell you how often to have this done based on your age, family history, or other things that can increase your risk for heart attack and stroke. ?? Blood pressure. Have your blood pressure checked during a routine doctor visit. Your doctor willtell you how often to check your blood pressure based on your age, your blood pressure results, andother factors. ?? Mammogram. Ask your doctor how often you should have a mammogram, which is an X-ray of your breasts. A mammogram can spot breast cancer before it can be felt and when it is easiest to treat. ?? Pap test and pelvic exam. Ask your doctor how often you should have a Pap test. You may not needto have a Pap test as often as you used to. ?? Vision. Have your eyes checked every year or two or as often as your doctor suggests. Some experts recommend that you have yearly exams for glaucoma and other age-related eye problems starting at age 50. ?? Hearing. Tell your doctor if you notice any change in your hearing. You can have tests to find out how well you hear. ?? Diabetes. Ask your doctor whether you should have tests for diabetes. ?? Colon cancer. You should begin tests for colon cancer at age 50. You may have one of several tests. Your doctor will tell you how often to have tests based on your age and risk. Risks include whether you already had a precancerous polyp removed from your colon or whether your parents, sisters and brothers, or children have had colon cancer. ?? Thyroid disease. Talk to your doctor about whether to have your thyroid checked as part of a regular physical exam. Women have an increased chance of a thyroid problem. ?? Osteoporosis. You should begin tests for bone density at age 65. If you are younger than 65, askyour doctor whether you have factors that may increase your risk for this disease. You may want to have this test before age 65. ?? Heart attack and stroke risk. At least every 4 to 6 years, you should have your risk for heart attack and stroke assessed. Your doctor uses factors such as your age, blood pressure, cholesterol, and whether you smoke or have diabetes to show what your risk for a heart attack or stroke is over the next 10 years. When should you call for help? Watch closely for changes in your health, and be sure to contact your doctor if you have any problems or symptoms that concern you. Where can you learn more? Go to https://www.[employer].net/patientEd Enter Y074 in the search box to learn more about Well Visit, Women 50 to 65: Care Instructions. Current as of: August 17, 2016 Content Version: 11.7 ?? 1764-1072 [employer]. Care instructions adapted under license by your healthcare professional. If you have questions about a medical condition or this instruction, always ask your healthcare professional. These instructions may not represent the values of this healthcare organization. [employer] disclaims any warranty or liability for your use of this information. angelMD. Hepatitis B: Care Instructions Your Care Instructions Hepatitis B is a disease caused by a virus that infects the liver. It spreads through infected blood, semen, and other body fluids during sexual contact. It also can spread when people share needles to inject drugs or share things that may have blood on them. These include razors and toothbrushes. [place] used for tattoos, body piercing, or acupuncture can spread the disease if they are not cleaned the right way. After you get the virus, it may be 1 to 6 months before you see symptoms. You may never notice them. You can give the disease to other people before and after you have symptoms. Hepatitis B can make you tired. It can cause a fever, nausea, vomiting, light- colored stools, and dark urine. Your skin or eyes may look yellow. This is called jaundice. Most people get better in several weeks, but it can take several months. For some people the virus stays in their bodies. If the virus stays in your body for a long time, it can cause serious liver disease. After you have had the virus and feel better, you will not get it again. Follow-up care is a merino part of your treatment and safety. Be sure to make and go to all appointments, and call your doctor if you are having problems. It's also a good idea to know your test resultsand keep a list of the medicines you take. How can you care for yourself at home? ?? Reduce your activity to match your energy level. ?? Avoid alcohol for as long as your doctor tells you to. This may be months. Alcohol can make liver problems worse. ?? Make sure your doctor knows all the medicines you take. Some medicines, such as acetaminophen (Tylenol), can make liver problems worse. Do not take any new medicines unless your doctor says it is okay. ?? Be safe with medicines. If your doctor prescribes antiviral medicine, take it exactly as prescribed. Call your doctor if you think you are having a problem with your medicine. ?? If you have nausea or vomiting, try to eat smaller meals and eat more often. ?? Drink plenty of fluids, enough so that your urine is light yellow or clear like water. If you have kidney, heart, or liver disease and have to limit fluids, talk with your doctor before you increase the amount of fluids you drink. ?? If you have itchy skin, keep cool, stay out of the sun, and wear cotton clothing. Talk to your doctor about using jhzh-lxm-fgeicco medicines, such as diphenhydramine (Benadryl) or loratadine (Claritin), to control the itching. Read and follow the instructions on the label. To prevent spreading hepatitis B ?? Tell the people you live with or have sex with about your illness as soon as possible. The CDC recommends that people in close contact with an infected person get the hepatitis B vaccine. ?? Do not donate blood or blood products, organs, semen, or eggs (ova). ?? Stop all sexual activity or use latex condoms. Do this until your doctor tells you that you can no longer give hepatitis B to others. Avoid anal contact with a sex partner while you are infected. ?? Do not share personal items that may have your blood on them. These include razors, toothbrushes, towels, and nail files. ?? Use lotions or ointments to prevent chapped or broken skin. These skin problems can expose others to your blood. ?? Tell your doctor, dentist, and anyone else who may come in contact with your blood about your illness. ?? If you are , tell the doctor who will deliver your baby about your illness. Be sure yourbaby gets medicine to prevent infection. This should start right after . ?? If you get blood on your clothing or other fabrics, clean them well. ?? Be sure to carefully get rid of sanitary napkins and tampons or other disposable items that haveyour blood on them. Place them in sealed plastic bags before you throw them away. ?? Use a solution of 1 part bleach to 10 parts water to clean surfaces that have your blood or any other body fluid (such as semen or menstrual blood) on them. These surfaces include toilet seats, countertops, and floors. ?? If you have long-term hepatitis B, always use latex condoms during any sexual activity. You can infect others with the virus even if you do not have symptoms. When should you call for help? Call 911 anytime you think you may need emergency care. For example, call if: ? You passed out (lost consciousness). ??Call your doctor now or seek immediate medical care if: ? You have new or worse belly pain. ? You have a new or higher fever. ? You are dizzy or lightheaded, or you feel like you may faint. ? You have symptoms of dehydration, such as: ?? Dry eyes and a dry mouth. ?? Passing only a little urine. ?? Feeling thirstier than normal. ? You cannot keep down medicine or fluids. ? You have new or more blood in stools. ? You have new or worse vomiting or diarrhea. ??Watch closely for changes in your health, and be sure to contact your doctor if: ? You do not get better as expected. Where can you learn more? Go to https://www.[employer].net/patientEd Enter I471 in the search box to learn more about Hepatitis B: Care Instructions. Current as of: February 19, 2017 Content Version: 11.7 ?? 7852-9086 [employer]. Care instructions adapted under license by your healthcare professional. If you have questions about a medical condition or this instruction, always ask your healthcare professional. These instructions may not represent the values of this healthcare organization. [employer] disclaims any warranty or liability for your use of this information. [employer] Alcoholic Hepatitis: Care Instructions Your Care Instructions Alcoholic hepatitis is damage to the liver. It is caused by long-term heavy drinking. The liver gets inflamed and swollen. Then the liver can't remove waste products from the body. This condition can lead to permanent scarring in the liver. This scarring is called cirrhosis. If you stop drinking, your liver function may improve. You may have to make changes in your diet and adjust your medicines. Follow-up care is a merino part of your treatment and safety. Be sure to make and go to all appointments, and call your doctor if you are having problems. It's also a good idea to know your test resultsand keep a list of the medicines you take. How can you care for yourself at home? ?? Do not drink alcohol. Alcohol can damage the liver. Tell your doctor if you need help to quit. Counseling and support groups can help you stay sober. Sometimes medicines can help too. ?? Be safe with medicines. Take your medicines exactly as prescribed. Call your doctor if you thinkyou are having a problem with your medicine. You will get more details on the specific medicines your doctor prescribes. ?? Do not take any lvdv-oef-efkudtu medicines, including ibuprofen (Advil, Motrin), naproxen (Aleve), and acetaminophen (Tylenol), unless your doctor tells you to. ?? Make sure your doctor knows all of the medicines, vitamins, supplements, and herbal remedies youtake. ?? Follow your doctor's instructions about your diet. See a dietitian if you need help choosing theright foods. When should you call for help? Call 911 anytime you think you may need emergency care. For example, call if: ? You have trouble breathing. ? You vomit blood or what looks like coffee grounds. ??Call your doctor now or seek immediate medical care if: ? You feel very sleepy or confused. ? You have a fever. ? There is a new or increasing yellow tint to your skin or the whites of your eyes. ? You have new or worse belly pain. ? You have any abnormal bleeding, such as: ?? Nosebleeds. ?? Vaginal bleeding that is different (heavier, more frequent, at a different time of the month) than what you are used to. ?? Bloody or black stools, or rectal bleeding. ?? Bloody or pink urine. ??Watch closely for changes in your health, and be sure to contact your doctor if: ? You have any problems. ? Your belly is getting bigger. ? You are gaining weight. Where can you learn more? Go to https://www.[employer].net/patientEd Enter S060 in the search box to learn more about Alcoholic Hepatitis: Care Instructions. Current as of: February 19, 2017 Content Version: 11.7 ?? [id number] [employer]. Care instructions adapted under license by your healthcare professional. If you have questions about a medical condition or this instruction, always ask your healthcare professional. These instructions may not represent the values of this healthcare organization. [employer] disclaims any warranty or liability for your use of this information. documented in this encounter Plan of Treatment Not on file documented as of this encounter Visit Diagnoses Diagnosis Routine physical examination- Primary Routine general medical examination at a health care facility Abnormal LFTs (liver function tests) Other abnormal blood chemistry Chronic viral hepatitis B without coma and with delta agent Viral hepatitis B without mention of hepatic coma, chronic, with hepatitis delta Hypercholesterolemia Pure hypercholesterolemia documented in this encounter Care Teams Shank Pinner Relationship Specialty Start Date End Date David Mays MD PCP - General Family Practice 01/27/16 documented as of this encounter
--- OUTSIDE RECORDS SUMMARY | 2024-03-31 23:29 | XMS_ITS | Encounter Summary ---
Author Organization [facility] Address [address] [place] [address] Care Team Providers Care Lockstitch Hemmer Name Role Phone David Mays MD Primary Care Prov ider Reason for Visit * Reason Onset Date Comments Medication Refill Medication Refill 07/31/2019 Encounter Details Date Type Department Care Team (Late st Contact Info) Description 07/13/[address] [facility] [address] [address] David Mays MD [address] [place] [phone] Insomnia, unspecified type; GUSTAVO (generalized anxiety disorder) [...] * Telephone Encounter - Kristel Cuadra - 07/13/2019 1:14 PM CDT LRF- 06/14/19 NOV- 11/20/19 TUAN-05/21/19 documented in this encounter Plan of Treatment Not on file documented as of this encounter Visit Diagnoses Diagnosis Insomnia, unspecified type GUSTAVO (generalized anxiety disorder) Generalized anxiety disorder documented in this encounter Care Teams Lockstitch Hemmer Relationship Specialty Start Date End Date David Mays MD PCP - General Family Practice 01/27/16 documented as of this encounter
--- OUTSIDE RECORDS SUMMARY | 2024-03-31 23:29 | XMS_ITS | Encounter Summary ---
Author Organization [facility] Address [address] [place] [address] Care Team Providers Care Grocery Specialist Name Role Phone David Mays MD Primary Care Prov ider Reason for Visit * Reason Comments Medication Refill Encounter Details Date Type Department Care Team (Late st Contact Info) Description 05/29/[address] [phone] David Mays MD [address] [place] [address] Essential hypertension Social History Tobacco Use Types [...] hypertension documented in this encounter Care Teams Grocery Specialist Relationship Specialty Start Date End Date David Mays MD PCP - General Family Practice 01/27/16 documented as of this encounter
--- OUTSIDE RECORDS SUMMARY | 2024-03-31 23:29 | XMS_ITS | Encounter Summary ---
Author Organization [facility] Address [address] [place] [address] Care Team Providers Care Range Ecologist Name Role Phone David Mays MD Primary Care Prov ider Reason for Visit * Reason Comments Medication Refill Encounter Details Date Type Department Care Team (Late st Contact Info) Description 01/09/[address] [address] David Mays MD [address] [place] [phone] Hypercholesterolemia; GUSTAVO (generalized anxiety disorder) Social History Tobacco [...] encounter Visit Diagnoses Diagnosis Hypercholesterolemia Pure hypercholesterolemia GUSTAVO (generalized anxiety disorder) Generalized anxiety disorder documented in this encounter Care Teams Range Ecologist Relationship Specialty Start Date End Date David Mays MD PCP - General Family Practice 01/27/16 documented as of this encounter
--- OUTSIDE RECORDS SUMMARY | 2024-03-31 23:29 | XMS_ITS | Encounter Summary ---
Author Organization [facility] Address [address] [place] [address] Care Team Providers Care Marketing Financial Analyst Name Role Phone David Mays MD Primary Care Prov ider Reason for Visit * Reason Onset Date Comments Medication Refill Medication Refill 06/17/2019 Encounter Details Date Type Department Care Team (Late st Contact Info) Description 04/16/2019 Refill [facility] [address] [address] David Mays MD [address] [place] [phone] Insomnia, unspecified type; GUSTAVO (generalized anxiety disorder) [...] Telephone Encounter - Pamela Damico PCA - 04/16/2019 12:55 PM BURNT LIME DRAWER Last RFL 03/17/19 TUAN 10/27/18 NOV 05/21/19 T LIME DRAWER documented in this encounter Plan of Treatment Not on file documented as of this encounter Visit Diagnoses Diagnosis Insomnia, unspecified type GUSTAVO (generalized anxiety disorder) Generalized anxiety disorder documented in this encounter Care Teams Marketing Financial Analyst Relationship Specialty Start Date End Date David Mays MD PCP - General Family Practice 01/27/16 documented as of this encounter
--- OUTSIDE RECORDS SUMMARY | 2024-03-31 23:29 | XMS_ITS | Encounter Summary ---
Author Organization [facility] Address [address] [place] [address] Care Team Providers Care Content Administrator Name Role Phone David Mays MD Primary Care Prov ider Reason for Visit * Reason Onset Date Comments Medication Refill 10/19/2016 Encounter Details Date Type Department Care Team (Late st Contact Info) Description 10/19/2016 Refill [facility] [address] [address] David Mays MD [address] [place] [phone] Social History Tobacco Use Types Packs/Day Years [...] Telephone Encounter - Teresita Farley CMA - 10/20/2016 2:43 PM CDT Rx phoned in. * Telephone Encounter - Teresita Farley CMA - 10/19/2016 2:45 PM CDT Last RFL 09/18/16 TUAN 07/28/16 NOV none documented in this encounter Plan of Treatment Not on file documented as of this encounter Visit Diagnoses Not on filedocumented in this encounter Care Teams Content Administrator Relationship Specialty Start Date End Date David Mays MD PCP - General Family Practice 01/27/16 documented as of this encounter
--- OUTSIDE RECORDS SUMMARY | 2024-03-31 23:29 | XMS_ITS | Encounter Summary ---
Author Organization [facility] Address [address] [place] [address] Care Team Providers Care Brewery Worker Name Role Phone David Mays MD Primary Care Prov ider Reason for Visit * Reason Comments Medication Refill Encounter Details Date Type Department Care Team (Late st Contact Info) Description 05/12/2019 Refill [facility]ICINE - [address] [address] David Mays MD [address] [place] [phone] Insomnia, unspecified type; GUSTAVO (generalized anxiety disorder) [...] Telephone Encounter - Pamela Damico PCA - 05/14/2019 12:51 PM APPLICATION ENGINEER Last RFL 04/17/19 TUAN 10/27/18 NOV 05/21/19 ICATION ENGINEER documented in this encounter Plan of Treatment Not on file documented as of this encounter Visit Diagnoses Diagnosis Insomnia, unspecified type GUSTAVO (generalized anxiety disorder) Generalized anxiety disorder documented in this encounter Care Teams Brewery Worker Relationship Specialty Start Date End Date David Mays MD PCP - General Family Practice 01/27/16 documented as of this encounter
--- OUTSIDE RECORDS SUMMARY | 2024-03-31 23:29 | XMS_ITS | Encounter Summary ---
Author Organization [facility] Address [address] [place] [address] Care Team Providers Care Cannery Worker Name Role Phone David Mays MD Primary Care Prov ider Reason for Visit * Reason Comments Medication Refill Encounter Details Date Type Department Care Team (Late st Contact Info) Description 08/09/2017 Refill [facility] - [address] [address] David Mays MD [address] [place] [phone] Social History Tobacco Use Types Packs/Day Years [...] * Telephone Encounter - Linda Pineda - 08/09/2017 6:14 PM CDT NOV 10/26/2017 TUAN 04/27/2017 Last fill 07/11/2017 documented in this encounter Plan of Treatment Not on file documented as of this encounter Visit Diagnoses Not on filedocumented in this encounter Care Teams Cannery Worker Relationship Specialty Start Date End Date David Mays MD PCP - General Family Practice 01/27/16 documented as of this encounter
--- OUTSIDE RECORDS SUMMARY | 2024-03-31 23:29 | XMS_ITS | Encounter Summary ---
Author Organization [facility] Address [address] [place] [address] Care Team Providers Care Director Export Name Role Phone David Mays MD Primary Care Prov ider Reason for Visit * Reason Comments Medication Refill Encounter Details Date Type Department Care Team (Late st Contact Info) Description 09/11/[address] [address] David Mays MD [address] [place] [phone] Insomnia, unspecified type Social History Tobacco Use [...] * Telephone Encounter - Kristel Cuadra - 09/11/2018 2:51 PM CDT TUAN- 08/09/18 NOV- 10/27/18 LRF- 08/09/18 documented in this encounter Plan of Treatment Not on file documented as of this encounter Visit Diagnoses Diagnosis Insomnia, unspecified type documented in this encounter Care Teams Director Export Relationship Specialty Start Date End Date David Mays MD PCP - General Family Practice 01/27/16 documented as of this encounter
--- OUTSIDE RECORDS SUMMARY | 2024-03-31 23:29 | XMS_ITS | Encounter Summary ---
Author Organization [facility] Address [address] [place] [address] Care Team Providers Care Access Clinician Name Role Phone David Mays MD Primary Care Prov ider Reason for Visit * Reason Comments Medication Refill Encounter Details Date Type Department Care Team (Late st Contact Info) Description 11/17/[address] [address] David Mays MD [address] [place] [phone] GUSTAVO (generalized anxiety disorder); Insomnia, unspecified type [...] Notes * Telephone Encounter - Saskia Parish Kulwinder - 11/19/2019 1:59 PM CDT Medication name: ambien and klonopin Last RF: both 10/15/19 # Dispensed/Refills: #30 and #15 Last appt: 05/21/19 Next appt: 11/20/19 If the patient is due for an [...] type documented in this encounter Care Teams Access Clinician Relationship Specialty Start Date End Date David Mays MD PCP - General Family Practice 01/27/16 documented as of this encounter
--- OUTSIDE RECORDS SUMMARY | 2024-03-31 23:29 | XMS_ITS | Encounter Summary ---
Author Organization [facility] Address [address] [place] [address] Care Team Providers Care Warehouse Assembly Worker Name Role Phone David Mays MD Primary Care Prov ider Reason for Visit * Reason Comments Medication Refill Encounter Details Date Type Department Care Team (Late st Contact Info) Description 08/15/[address] [address] Andre Mccabe MD [address] [place] [phone] GUSTAVO (generalized anxiety disorder); Insomnia, unspecified type [...] * Telephone Encounter - Kristel Cuadra - 08/15/2019 4:52 PM CDT TUAN- 05/21/19 NOV- 11/20/19 LRF-07/13/19 documented in this encounter Plan of Treatment Not on file documented as of this encounter Visit Diagnoses Diagnosis GUSTAVO (generalized anxiety disorder) Generalized anxiety disorder Insomnia, unspecified type documented in this encounter Care Teams Warehouse Assembly Worker Relationship Specialty Start Date End Date David Mays MD PCP - General Family Practice 01/27/16 documented as of this encounter
--- OUTSIDE RECORDS SUMMARY | 2024-03-31 23:30 | XMS_ITS | Encounter Summary ---
Author Organization [facility] Address [address] [place] [address] Care Team Providers Care Controlled Area Checker Name Role Phone David Mays MD Primary Care Prov ider Reason for Visit * Reason Onset Date Comments Medication Refill 02/11/2016 Encounter Details Date Type Department Care Team (Late st Contact Info) Description 02/11/2016 Refill [facility] MEDICINE [address] [address] David Mays MD [address] [place] [phone] Social History Tobacco Use Types Packs/Day Years [...] Telephone Encounter - Teresita Farley CMA - 02/12/2016 10:20 AM FAN INSTALLER Rx phoned in. INSTALLER * Telephone Encounter - David Mays MD - 02/11/2016 5:09 PM FAN INSTALLER On high dose citalopram may increase risk of arrhythmia recommend to reduce 20 mg daily. Please inform pt and ok to phone in other meds. INSTALLER * Telephone Encounter - Teresita Farley CMA - 02/11/2016 4:39 PM FAN INSTALLER Last RFL 12/02/15 TUAN 01/27/[address] Mays please look at the Celexa med. According to pharmacy this is what pt reported taking. Please advise INSTALLER documented in this encounter Plan of Treatment Not on file documented as of this encounter Visit Diagnoses Not on filedocumented in this encounter Care Teams Controlled Area Checker Relationship Specialty Start Date End Date David Mays MD PCP - General Family Practice 01/27/16 documented as of this encounter
--- OUTSIDE RECORDS SUMMARY | 2024-03-31 23:30 | XMS_ITS | Encounter Summary ---
Author Organization [facility] Address [address] [place] [address] Care Team Providers Care Manuscript Reader Name Role Phone David Mays MD Primary Care Prov ider Encounter Details Date Type Department Care Team (Late st Contact Info) Description 01/27/[address] [address] Carmella Lott MD NO ADDRESS ON FILE Social History Tobacco Use Types Packs/Day Years [...] on filedocumented in this encounter Care Teams Manuscript Reader Relationship Specialty Start Date End Date David Mays MD PCP - General Family Practice 01/27/16 documented as of this encounter
--- OUTSIDE RECORDS SUMMARY | 2024-03-31 23:30 | XMS_ITS | Encounter Summary ---
Author Organization [facility] Address [address] [place] [address] Care Team Providers Care Silver Plater Name Role Phone David Mays MD Primary Care Prov ider Reason for Visit * Reason Onset Date Comments Medication Refill 07/19/2016 Encounter Details Date Type Department Care Team (Late st Contact Info) Description 07/19/2016 Refill [facility] - [address] [address] David Mays MD [address] [place] [address] Social History Tobacco Use Types Packs/Day Years [...] * Telephone Encounter - Linda Pineda - 07/19/2016 6:32 PM CDT LM on pharmacy line. * Telephone Encounter - Teresita Farley CMA - 07/19/2016 2:50 PM CDT Last RFL 06/15/16 TUAN 01/27/16 NOV 07/28/16 documented in this encounter Plan of Treatment Not on file documented as of this encounter Visit Diagnoses Not on filedocumented in this encounter Care Teams Silver Plater Relationship Specialty Start Date End Date David Mays MD PCP - General Family Practice 01/27/16 documented as of this encounter
--- OUTSIDE RECORDS SUMMARY | 2024-03-31 23:30 | XMS_ITS | Encounter Summary ---
Author Organization [facility] Address [address] [place] [address] Care Team Providers Care Outpatient Scheduler Name Role Phone David Murguia MD Primary Care Prov ider Reason for Visit * Reason Comments Establish Care Information HM updated, declines flu shot Encounter Details Date Type Department Care Team (Late st Contact Info) Description 01/27/2016 2:15 PM CDT Office Visit [facility] [address] [address] David Murguia MD [address] [place] [address] Routine physical examination (Primary Dx); Benign hypertension; Other hyperlipidemia; Tobacco use; Visit for screening mammogram Social History Tobacco Use Types Packs/Day Years [...] Sign Reading Time Taken Comments Blood Pressure 130/70 01/27/2016 2:56 PM CDT Pulse 66 01/27/2016 2:33 PM CDT Temperature - - Respiratory Rate 16 01/27/2016 2:33 PM CDT Oxygen Saturation - - Inhaled Oxygen Concentration - - Weight 69.9 kg (154 lb 1.6 oz) 01/27/2016 2:33 P M CDT Height 162.6 cm (5' 4 ) 01/27/2016 2:33 PM CDT Body Mass Index 26.45 01/27/2016 2:33 PM CDT documented in this encounter Progress Notes * David Murguia MD - 01/27/2016 2:43 PM CDT HISTORY OF PRESENT ILLNESS Krys Cook, a 60 y.o. female presents with a Chief Complaint of Establish Care and Information Subjective HPI Chief Complaint Patient presents with ??? Establish Care ??? Information HM updated, declines flu shot Sister of a previous patient. Here to establish care. Known history of Hypertension. She is taking medications as instructed, no side effects of medications, no chest pain on exertion, no dyspnea on exertion, no edema , patient does not perform home BP monitoring, range. She is following low salt diet and exercise. Previous PCP Ishmael missed medication. Has hx of HLD has been taking pravachol statin cholesterol medication regularly without side effects such as myalgias or upper abdominal pain, nausea or jaundice. Has history of Depression. Currently on celexa and klonopin. Tolerating medication. Denies side effect. Mood has improved. No crying spells, mood swing and insomnia. Denies suicidal and homicidal ideation. Declined vaccine and colonoscopy. Not working, clean the house. Takes care of kitten. Read a lot. - pap smear 10 years. Patient Active Problem List Diagnosis Date Noted ??? Depression 01/27/2016 ??? Hypercholesterolemia 01/27/2016 ??? Hypertension 01/27/2016 ??? Adiposity 01/27/2016 ??? Tobacco use 07/16/2015 No current outpatient prescriptions on file prior to visit. No current facility-administered medications on file prior to visit. No Known Allergies Social History Substance Use Topics ??? Smoking status: Current Every Day Smoker -- 0.20 packs/day Types: Cigarettes ??? Smokeless tobacco: Not on file Comment: 3-4 cigarettes daily ??? Alcohol Use: No REVIEW OF SYSTEMS Review of Systems Constitutional: Negative for fever and fatigue. HENT: Negative for congestion. Respiratory: Negative for chest tightness and shortness of breath. Cardiovascular: Negative for chest pain, palpitations and leg swelling. Gastrointestinal: Negative for abdominal pain. Genitourinary: Negative for difficulty urinating. Musculoskeletal: Negative for arthralgias. Neurological: Negative for dizziness, weakness and headaches. Psychiatric/Behavioral: Negative. Negative for sleep disturbance, dysphoric mood and agitation. Objective PHYSICAL EXAM BP 144/76 mmHg Pulse 66 Resp 16 Ht 5' 4 (1.626 m) Wt 69.899 kg (154 lb 1.6 oz) BMI 26.44kg/m2 ? No Physical Exam Constitutional: She appears well-developed. Eyes: [...] Thought content normal. Assessment ASSESSMENT and PLAN: ICD-10-CM ICD-9-CM 1. Benign hypertension I10 401.1 COMPREHENSIVE METABOLIC PANEL CBC WITHOUT DIFFERENTIAL TSH REFLEXIVE Continue current medication, low salt diet and regular exercise. Encourage blood pressure monitoring at home. 2. Other hyperlipidemia E78.4 272.4 LIPID PANEL Continue current medication, low cholesterol diet, and regular exercise 3. Tobacco use Z72.0 305.1 The patient is sincerely urged to quit smoking. The numerous direct health benefits are discussed. If she decides to quit, there are a number of helpful adjunctive aids, and she can see me to discuss nicotine replacement therapy and bupropion anytime in the future. Hx of depression and anxiety - stable.The current medical regimen is effective; continue present plan and medications. Call or return to clinic prn if these symptoms worsen or fail to improve as anticipated. The patient indicates understanding of these issues and agrees with the plan. documented in this encounter Miscellaneous Notes * Addendum Note - David Murguia MD - 01/30/2016 11:47 PM CDTAddended by: MOUNA MURGUIA on: 01/30/2016 11:47 PM Modules accepted: Level of Service documented in this encounter Plan of Treatment Not on file documented as of this encounter Procedures Procedure Name Priority Date/Time Associated Diagnosis Comments TSH REFLEXIVE Routine 07/13/2016 9:52 AM CDT CBC WITH DIFFERENTIAL Routine 07/13/2016 9:52 AM CDT LIPID PANEL Routine 07/13/2016 9:52 AM CDT COMPREHENSIVE METABOLIC PANEL Routine 07/13/2016 9:52 AM CDT documented in this encounter Results * TSH REFLEXIVE (07/13/2016 9:52 AM CDT) TSH, ULTRASENSITIVE 1.75 0.40 - 4.50 mIU/L [facility] Comment: REPORT COMMENT: FASTING:YES Test Performed at: [facility] ??[id number] RIC GORDILLO DO,MPH 07/13/2016 9:52 AM CDT David Murguia MD CHEMISTRY ORDERABLES [facility] [address] [place] [address] * (ABNORMAL) COMPREHENSIVE METABOLIC PANEL (07/13/2016 9:52 AM CDT) Pathologist [facility] GLUCOSE 86 65 - 99 mg/dL [facility] Comment:Fasting reference in terval BUN 9 7 - 25 mg/dL [facility] . [facility] CREATININE 0.89 0.50 - 0.99 mg/dL [facility] Comment: For patients >49 years of age, the reference limit for Creatinine is approximately 13% higher for people identified as -[place]. GFR 70 > OR = 60 mL/min/1 .73m2 [facility] GFR, 82 > OR = 60 mL/min/1 .73m2 [facility] [employer] . [facility] BUN/CREAT RATIO NOT APPLICABLE 6 - 22 (calc) [facility] . [facility] SODIUM 139 135 - 146 mmol/L [facility] . [facility] POTASSIUM 3.7 3.5 - 5.3 mmol/L [facility] . [facility] CHLORIDE 97(L) 98 - 110 mmol/L [facility] CO2 32(H) 20 - 31 mmol/L [facility] CALCIUM 9.8 8.6 - 10.4 mg/dL [facility] . [facility] TOTAL PROTEIN 6.9 6.1 - 8.1 g/dL [facility] . [facility] ALBUMIN 4.1 3.6 - 5.1 g/dL [facility] . [facility] GLOBULIN 2.8 1.9 - 3.7 g/dL (calc) [facility] ALBUMIN/GLOBULIN RATIO 1.5 1.0 - 2.5 (calc) [facility] BILIRUBIN TOTAL 0.3 0.2 - 1.2 mg/dL [facility] ALKALINE PHOSPHATASE 91 33 - 130 U/L [facility] AST 14 10 - 35 U/L [facility] ALT 16 6 - 29 U/L [facility] Comment: Test Performed at: [employer] [place], [place] ??[address] RIC GORDILLO DO,MPH 07/13/2016 9:52 AM CDT David Murguia MD CHEMISTRY ORDERABLES [facility] [address] [place] [address] * (ABNORMAL) LIPID PANEL (07/13/2016 9:52 AM CDT) CHOLESTEROL 219(H) 125 - 200 mg/dL [facility] HDL 46 > OR = 46 mg/dL [facility] TRIGLYCERIDE 161(H) <150 mg/dL [facility] LDL CALCULATED 141(H) <130 mg/dL (calc) [facility] Comment: Desirable range <100 mg/dL for patients with CHD or diabetes and <70 mg/dL for diabetic patients with known heart disease. CHOL/HDL RATIO 4.8 < OR = 5.0 (calc) [facility] TOTAL NON-HDL CHOL(LDL+VLDL) 173(H) mg/dL (calc) [facility] Comment: Target for non-HDL cholesterol is 30 mg/dL higher than LDL cholesterol target. Test Performed at: [employer] [place], [place] ??[address] RIC GORDILLO DO,MPH 07/13/2016 9:52 AM CDT David Murguia MD CHEMISTRY ORDERABLES [facility] [address] [place] [address] * (ABNORMAL) CBC WITH DIFFERENTIAL (07/13/2016 9:52 AM CDT) WBC 11.8(H) 3.8 - 10.8 Thousand/ uL [facility] RBC 4.55 3.80 - 5.10 Million/u L [facility] HEMOGLOBIN 14.1 11.7 - 15.5 g/dL [facility] HEMATOCRIT 41.9 35.0 - 45.0 % [facility] MCV 92.1 80.0 - 100.0 fL [facility] MCH 31.0 27.0 - 33.0 [address] [facility] MCHC 33.7 32.0 - 36.0 g/dL [facility] RDW 13.5 11.0 - 15.0 % [facility] PLATELETS 237 140 - 400 Thousand/ uL [facility] MPV 10.4 7.5 - 12.5 [address] [facility] Comment: Test Performed at: [facility] [address] ??[address] RIC GORDILLO DO,MPH 07/13/2016 9:52 AM CDT David Murguia MD HEMATOLOGY ORDERABLES [facility] [address] [place] [address] documented in this encounter Visit Diagnoses Diagnosis Routine physical examination- Primary Routine general medical examination at a health care facility Benign hypertension Essential hypertension, benign Other hyperlipidemia Tobacco use Tobacco use disorder Visit for screening mammogram Other screening mammogram documented in this encounter Care Teams Outpatient Scheduler Relationship Specialty Start Date End Date David Murguia MD PCP - General Family Practice 01/27/16 documented as of this encounter
--- OUTSIDE RECORDS SUMMARY | 2024-03-31 23:30 | XMS_ITS | Encounter Summary ---
Author Organization [facility] Address [address] [place] [address] Care Team Providers Care Net Mobile Developer Name Role Phone David Mays MD Primary Care Prov ider Reason for Visit * Reason Comments Medication Refill Encounter Details Date Type Department Care Team (Late st Contact Info) Description 04/12/2016 Refill [facility] [address] [address] David Mays MD [address] [place] [address] Social History Tobacco Use Types Packs/Day Years [...] Telephone Encounter - Teresita Farley CMA - 04/13/2016 2:14 PM RETORT SETTER Rx phoned in. RT SETTER * Telephone Encounter - Teresita Farley CMA - 04/13/2016 11:17 AM RETORT SETTER Last RFL 03/10/16 TUAN 01/27/16 NOV 07/28/16 RT SETTER documented in this encounter Plan of Treatment Not on file documented as of this encounter Visit Diagnoses Not on filedocumented in this encounter Care Teams Net Mobile Developer Relationship Specialty Start Date End Date David Mays MD PCP - General Family Practice 01/27/16 documented as of this encounter
--- OUTSIDE RECORDS SUMMARY | 2024-03-31 23:30 | XMS_ITS | Encounter Summary ---
Author Organization [facility] Address [address] [place] [address] Care Team Providers Care Drug Abuse Counselor Name Role Phone David Mays MD Primary Care Prov ider Reason for Visit * Reason Comments Medication Refill Encounter Details Date Type Department Care Team (Late st Contact Info) Description 05/18/2016 Refill [facility] [address] [address] David Mays MD [address] [place] [address] Social History Tobacco Use Types Packs/Day Years [...] * Telephone Encounter - Linda Pineda - 05/18/2016 5:48 PM CST LM on pharmacy line for both SORTER * Telephone Encounter - Teresita Farley CMA - 05/18/2016 11:37 AM TIRE SORTER Last RFL 04/13/16 TUAN 01/27/16 NOV 07/28/16 SORTER documented in this encounter Plan of Treatment Not on file documented as of this encounter Visit Diagnoses Not on filedocumented in this encounter Care Teams Drug Abuse Counselor Relationship Specialty Start Date End Date David Mays MD PCP - General Family Practice 01/27/16 documented as of this encounter
--- OUTSIDE RECORDS SUMMARY | 2024-03-31 23:30 | XMS_ITS | Encounter Summary ---
Author Organization [facility] Address [address] [place] [address] Care Team Providers Care Geometry Teacher Name Role Phone David Mays MD Primary Care Prov ider Reason for Visit * Reason Comments Medication Refill Encounter Details Date Type Department Care Team (Late st Contact Info) Description 06/15/2016 Refill [facility] [address] [address] David Mays MD [address] [place] [address] Social History Tobacco Use Types Packs/Day Years [...] Telephone Encounter - Teresita Farley CMA - 06/15/2016 3:36 PM CDT Rx phoned in. * Telephone Encounter - Linda Pineda - 06/15/2016 10:01 AM CDT NOV 07/28/2016 TUAN 01/27/2016 Last fill 05/18/2016 documented in this encounter Plan of Treatment Not on file documented as of this encounter Visit Diagnoses Not on filedocumented in this encounter Care Teams Geometry Teacher Relationship Specialty Start Date End Date Daivd Mays MD PCP - General Family Practice 01/27/16 documented as of this encounter
== END 2024-03-24 18:38 | disposition home or self-care (01) ==
PROVIDERS: Emergency Provider Physician Assistant; PCP Family Medicine
DX: S42.252A Displaced fracture of greater tuberosity of left humerus, initial encounter for closed fracture (principal); S42.212A Unspecified displaced fracture of surgical neck of left humerus, initial encounter for closed fracture; S42.292A Other displaced fracture of upper end of left humerus, initial encounter for closed fracture; I10 Essential (primary) hypertension; W17.89XA Other fall from one level to another, initial encounter
CPT/HCPCS: 73030; 99284; A4565; A9270

== ENCOUNTER 2024-05-04 10:51 | Outpatient (CLI) | payer MEDICARE, SELFPAY ==
--- NOTE | ~2024-05-04 | CT_ITS ---
EXAMINATION: CT shoulder LT wo con DATE: 05/04/2024 11:09 INDICATION: Primary osteoarthritis, left shoulder. TECHNIQUE: Computed tomography (CT) of the left shoulder was performed without intravenous contrast. Automated exposure control and iterative reconstruction technique were employed. The dose-length prod uct was 125.71 mGy-cm. COMPARISON: Left shoulder radiographs 03/24/2024 FINDINGS: There is a mesoacromial os acromiale. There is a comminuted fracture of proximal left humer us. At the surgical neck, the distal fracture fragment demonstrates impaction, 37 degrees medial angu lation, 12 mm anterior displacement, and 21 degrees posterior angulation. There is a nondisplaced fra cture component at the greater tuberosity. There is severe glenohumeral joint osteoarthritis includin g bone volume loss of the glenoid. There is a glenohumeral joint effusion with loose bodies. There is severe acromioclavicular joint osteoarthritis. IMPRESSION: 1. Subacute comminuted two-part fracture of proximal left humerus. 2. Severe polyarticular osteoarthritis. 3. Glenohumeral joint effusion with loose bodies. Reviewed, dictated and finalized at location A. OARDING CLERK
--- OUTSIDE RECORDS SUMMARY | 2024-05-04 10:59 | XMS_ITS | Clinical Summary ---
Author Organization [facility] Address [address] [place] [address]. [place], [place] [address] [place] [address] Care Team Providers Care Shoe Stock Associate Name Role Phone Narendra Claros MD Primary Care Provider [phone] Social History Tobacco Use Types Packs/Day Years [...] 12/14/2030 Dexa Scan (General) Completed 01/11/2022 Meningococcal B Vaccine Aged Out No l onger eligible based on patient's age to complete this topic Meningococcal Vaccine Aged Out No jeremias jessee [...] Health Maintenance Insurance MEDICARE [employer]ET[employer] Care Teams Shoe Stock Associate Relationship Specialty Start Date End Date Narendra Claros MD [address] [facility] [address] [place] [address] PCP - General FAMILY PRACTICE 07/29/21
== END 2024-05-04 10:52 | disposition home or self-care (01) ==
PROVIDERS: PCP Family Medicine; Visit Provider Orthopaedic Surgery
DX: M19.012 Primary osteoarthritis, left shoulder (principal); S42.202A Unspecified fracture of upper end of left humerus, initial encounter for closed fracture; X58.XXXA Exposure to other specified factors, initial encounter; M24.012 Loose body in left shoulder
CPT/HCPCS: 73200